=== PATIENT | male | born 1970 | race African-American/Black ===

== ENCOUNTER 2016-07-13 21:39 | Emergency (ER) | payer MEDICARE, MEDICAID ==
[~2016-07-13] VITALS: Ht 175.3 cm; Wt 55.0 kg
[~2016-07-13 21:39] MED LIST: CLON-481 PO; FOLI1TAB4 PO; HYDR-3533 PO; HYDR500C PO; MULTTAB4 PO; PERC10TA27 PO; PREV30CA11 PO; VENTAER INH
[2016-07-13 21:43] VITALS: BP 123/67; PULSE 80; RESP 18; TEMP 98.7; O2SAT 100
[2016-07-13 21:47] VITALS: BP 123/67; PULSE 80; RESP 18; TEMP 98.7; O2SAT 100
[2016-07-13] MEDS ORDERED: SODIUM CHLOR 0.9% 1000 ML INJ 1,000 ML IV ONE (22:04)
[2016-07-13] MEDS ORDERED: ONDANSETRON HCL 4 MG/2 ML VIAL IVP ONE (22:15)
[2016-07-13] MEDS ORDERED: MORPHINE SULFATE 8 MG/ML INJ IV PUSH ONE (22:15)
[2016-07-13] MEDS ORDERED: SODIUM CHLORIDE 0.9% FLUSH 5 ML FLUSH IVF PRN (22:15)
--- NOTE | 2016-07-13 22:27 | RADRPT ---
EXAM DATE/TIME: 07/13/2016 22:16 [facility] COMPARISON: CHEST SINGLE AP, April 14, 2016, 21:19. INDICATIONS : Chest pains (mid sternal) x1 day. MEDICAL HISTORY : Hypertension. Sickle Cell disease. Asthma SURGICAL HISTORY : Chest port ENCOUNTER: Initial ACUITY: 1 day PAIN SCORE: 10/10 LOCATION: Bilateral chest FINDINGS: A single view of the chest demonstrates the lungs to be symmetrically aerated without evidence of mas s, infiltrate or effusion. The cardiomediastinal contours are unremarkable. Osseous structures are intact. CONCLUSION: No acute disease. Toro Sanchez Jr., MD on July 13, 2016 at 22:25 Board Certified Radiologist. This report was verified electronically.
[2016-07-13 22:45] LABS: BICARBONATE 23.5 MEQ/L (21.0-32.0); POTASSIUM 3.4 MEQ/L (3.5-5.1)
[2016-07-13 22:50] VITALS: BP 181/76; PULSE 88; RESP 16; O2SAT 99
[2016-07-13] MEDS ORDERED: POTASSIUM CHLORIDE 20 MEQ CONTROLLED RELEASE TAB PO ONE (23:00)
[2016-07-13 23:01] LABS: AUTOMATED NEUTROPHIL # 7.1 TH/MM3 (1.8-7.7); BASOPHIL # 0.2 TH/MM3 (0-0.2); BASOPHIL % 1.8 % (0.0-2.0); EOSINOPHIL # 0.2 TH/MM3 (0-0.4); EOSINOPHIL % 1.7 % (0.0-4.0); LYMPHOCYTE # 2.7 TH/MM3 (1.0-4.8); MEAN CELL VOLUME 88.4 FL (80.0-100.0); MEAN CORPUSCULAR HEMOGLOBIN 30.5 PG (27.0-34.0); MEAN CORPUSCULAR HGB CONC 34.5 % (32.0-36.0); MONO % 9.8 % (0.0-8.0); NEUT % 62.7 % (16.0-70.0); PLATELET COUNT 353 TH/MM3 (150-450); RED BLOOD COUNT 2.34 MIL/MM3 (4.50-5.90); WHITE BLOOD COUNT 11.4 TH/MM3 (4.0-11.0)
[2016-07-13 23:10] LABS: HEMO FLAGS AUTO DIFF
[2016-07-13 23:13] LABS: HEMATOCRIT 20.7 % (39.0-51.0)
[2016-07-13] MEDS ORDERED: ZOFR4TAB3 SL (23:15)
[2016-07-13] MEDS ORDERED: FOLI1TAB4 PO (23:15)
[2016-07-13] MEDS ORDERED: HYDR-3533 PO (23:15)
[2016-07-13] MEDS ORDERED: MULTTAB4 PO (23:15)
--- NOTE | 2016-07-13 23:16 | PD ---
HPI Chief Complaint: Abdominal Pain Time Seen by Provider: 21:43 Travel History International Travel<30 days: No Contact w/Intl Traveler<30days: No Traveled to known affect area: No History of Present Illness HPI 46-year-old male arrives by EMS due to abdominal pain for about 20 minutes. He states he vomited 3 times. He has a history of sickle cell disease and states that his sickle cell crisis sees are similar to today's presentation. Severity moderate. He said no fever. No dyspnea reported. Denies chest pain. Onset occurred only with walking. Typically Gt'jae develops symptoms after exertion. PFSH Past Medical History Hx Anticoagulant Therapy: No Anemia: Yes Arthritis: Yes Asthma: Yes Autoimmune Disease: No Blood Disorders: Yes (SICKLE CELL) Anxiety: Yes Depression: Yes Heart Rhythm Problems: No Cancer: No Cardiovascular Problems: Yes High Cholesterol: No Chemotherapy: No Chest Pain: Yes Congestive Heart Failure: No COPD: No Cerebrovascular Accident: Yes (PARALYSIS L SIDE ) Cystic Fibrosis: No Diabetes: No Diminished Hearing: No Endocrine: No Gastrointestinal Disorders: No GERD: Yes Genitourinary: No Headaches: No Hepatitis: No Hiatal Hernia: No Hypertension: Yes Immune Disorder: No Implanted Vascular Access Dvce: Yes (LEFT CHEST POWER PORT) Kidney Stones: Yes 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) Psychiatric: Yes (Depression) Reproductive: Yes (ERECTILE DYSFUNCTION) Respiratory: Yes Immunizations Current: Yes Migraines: Yes Pneumonia: Yes Radiation Therapy: No Renal Failure: No Seizures: No Sickle Cell Disease: Yes Sleep Apnea: No Thyroid Disease: No Ulcer: No PNEUMOCCOCAL Vaccine (Year): 2 Past Surgical History Abdominal Surgery: Yes AICD: No Appendectomy: No Arteriovenous Shunt: No Body Medical Devices: Subclavian power port Cardiac Surgery: No Cholecystectomy: Yes Ear Surgery: No Endocrine Surgery: No Genitourinary Surgery: Yes Gynecologic Surgery: No Insulin Pump: No Joint Replacement: No Neurologic Surgery: No Oral Surgery: Yes (ALL TEETH REMOVED) Pacemaker: No Thoracic Surgery: No Other Surgery: Yes (gall bladder, denture, priapism) Social History Alcohol Use: Yes (RARELY) Tobacco Use: No (DENIES) Substance Use: Yes (PT ADMITS TO MARIJUANA OCCASIONALLY) Allergies-Medications (Allergen,Severity, Reaction): Coded Allergies: Ibuprofen (Verified Allergy, Severe, RECTAL BLEEDING, 07/13/16) Methadone (Verified Allergy, Severe, RECTAL BLEEDING., 07/13/16) Tramadol (Verified Allergy, Severe, Hallucinations, 07/13/16) Shrimp (Verified Allergy, Mild, 07/13/16) Reported Meds & Prescriptions Reported Meds & Active Scripts Active Zofran Odt (Ondansetron Odt) 4 Mg Tab 4 Mg SL Q8HR PRN Multi-Vitamins (Multiple Vitamin) 1 Tab Tab 1 Tab PO DAILY 90 Days Lortab (Hydrocodone-Acetaminophen) 5-325 Mg Tab 1 Tab PO Q6H PRN Folate (Folic Acid) 1 Mg Tab 1 Mg PO DAILY 30 Days Reported Percocet (Oxycodone-Acetaminophen) 10-325 mg Tab 1 Tab PO Q4H PRN Prevacid (Lansoprazole) 30 Mg Capdr 30 Mg PO DAILY Catapres (Clonidine) 0.3 Mg Tab 0.3 Mg PO BID Hydrea (Hydroxyurea) 500 Mg Cap 500 Mg PO TID Ventolin Hfa 18 GM Inh (Albuterol Sulfate) 90 Mcg/Act Aer 2 Puff INH Q4H PRN Review of Systems Except as stated in HPI: all other systems reviewed are Neg Physical Exam Narrative GENERAL: Pleasant 46-year-old male no acute distress SKIN: Warm and dry. HEAD: Atraumatic. Normocephalic. EYES: Pupils equal and round. No scleral icterus. No injection or drainage. ENT: No nasal bleeding or discharge. Mucous membranes pink and moist. NECK: Trachea midline. No JVD. CARDIOVASCULAR: Regular rate and rhythm. No murmur appreciated. RESPIRATORY: No accessory muscle use. Clear to auscultation. Breath sounds equal bilaterally. L anterior chest wall hemoport. GASTROINTESTINAL: Abdomen soft, non-tender, nondistended. Hepatic and splenic margins not palpable. MUSCULOSKELETAL: No obvious deformities. No clubbing. No cyanosis. No edema. NEUROLOGICAL: Awake and alert. No obvious cranial nerve deficits. Motor grossly within normal limits. Normal speech. PSYCHIATRIC: Appropriate mood and affect; insight and judgment normal. Data Data Last Documented VS Vital Signs Date Time Temp Pulse Resp B/P Pulse Ox O2 Delivery O2 Flow Rate FiO2 07/13/16 22:50 88 16 181/76 99 Room Air 07/13/16 21:47 98.7 Orders Complete Blood Count With Diff (07/13/16 22:04) Chest, Single Ap (07/13/16 22:04) Ecg Monitoring (07/13/16 22:04) Iv Access Insert/Monitor (07/13/16 22:04) Oximetry (07/13/16 22:04) Oxygen Administration (07/13/16 22:04) Ondansetron Inj (Zofran Inj) (07/13/16 22:15) Sodium Chloride 0.9% Flush (Ns Flush) (07/13/16 22:15) Sodium Chlor 0.9% 1000 Ml Inj (Ns 1000 M (07/13/16 22:04) Morphine Inj (Morphine Inj) (07/13/16 22:15) Basic Metabolic Panel (Bmp) (07/13/16 22:04) Potassium Chloride (Kcl) (07/13/16 23:00) Labs Laboratory Tests Test 07/13/16 22:10 White Blood Count 11.4 TH/MM3 Red Blood Count 2.34 MIL/MM3 Hemoglobin 7.1 GM/DL Hematocrit 20.7 % Mean Corpuscular Volume 88.4 FL Mean Corpuscular Hemoglobin 30.5 PG Mean Corpuscular Hemoglobin 34.5 % Concent Red Cell Distribution Width 18.0 % Platelet Count 353 TH/MM3 Mean Platelet Volume 9.1 FL Neutrophils (%) (Auto) 62.7 % Lymphocytes (%) (Auto) 24.0 % Monocytes (%) (Auto) 9.8 % Eosinophils (%) (Auto) 1.7 % Basophils (%) (Auto) 1.8 % Neutrophils # (Auto) 7.1 TH/MM3 Lymphocytes # (Auto) 2.7 TH/MM3 Monocytes # (Auto) 1.1 TH/MM3 Eosinophils # (Auto) 0.2 TH/MM3 Basophils # (Auto) 0.2 TH/MM3 CBC Comment AUTO DIFF Sodium Level 141 MEQ/L Potassium Level 3.4 MEQ/L Chloride Level 108 MEQ/L Carbon Dioxide Level 23.5 MEQ/L Anion Gap 10 MEQ/L Blood Urea Nitrogen 10 MG/DL Creatinine 0.95 MG/DL Estimat Glomerular Filtration 104 ML/MIN Rate Random Glucose 69 MG/DL Calcium Level 8.6 MG/DL MDM Medical Decision Making Medical Screen Exam Complete: Yes Emergency Medical Condition: Yes Medical Record Reviewed: Yes Differential Diagnosis Avascular necrosis, septic arthritis, anemia, arthritis, bone infarct Narrative Course CBC & BMP Diagram 1/1/17 22:10 Gt is ready for discharge. He feels much better. 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 K+ replenished. Diagnosis Primary Impression: Sickle cell pain crisis Additional Impression: Hypokalemia Referrals: Aydin Rae MD 2 days Additional Instructions: You have a choice when it comes to health care, and we are glad that you chose [facility]. Hopefully, we have met your expectations on today's visit. You are welcome to return to [facility] at any time, as we are committed to meeting the health care needs of our community. Med/Other Pt SpecificInfo: Prescription(s) given Scripts Ondansetron Odt (Zofran Odt)4 Mg Tab4 Mg SL Q8HR PRN (Nausea/Vomiting) #14 TAB Ref 0 Prov:Ezequiel Lemus MD 07/13/16 Multiple Vitamin (Multi-Vitamins)1 Tab Tab1 Tab PO DAILY 90 Days Prov:Ezequiel Lemus MD 07/13/16 Hydrocodone-Acetaminophen (Lortab)5-325 Mg Tab1 Tab PO Q6H PRN (PAIN) #30 TAB Ref 0 Prov:Ezequiel Lemus MD 07/13/16 Folic Acid (Folate)1 Mg Tab1 Mg PO DAILY 30 Days Ref 0 Prov:Ezequiel Lemus MD 07/13/16 Disposition: 01 DISCHARGE HOME Condition: Stable Ezequiel Lemus MD Jul 13, 2016 23:16
[2016-07-14 00:28] LABS: ACANTHOCYTES OCC (NORMAL); HOWELL-JOLLY BODIES PRESENT (NONE SEEN); SCAN/DIFF AUTO DIFF CONFIRMED
[2016-07-14] MEDS ORDERED: SODIUM CHLORIDE 0.9% FLUSH 5 ML FLUSH IVF PRN (00:30)
[2016-07-14 00:38] VITALS: BP 120/66
== END 2016-07-14 00:37 | disposition home or self-care (01) ==
LOC: NEPC 21:39
DX: D57.00 Hb-SS disease with crisis, unspecified (principal); E87.6 Hypokalemia; I10 Essential (primary) hypertension
CPT/HCPCS: 71010; 80048; 85025; 96361; 96374; 96375; 99284; J1642; J2270; J2405; J7030

== ENCOUNTER 2016-07-16 02:30 | Inpatient (IN) | payer OTHER, MEDICARE ==
[~2016-07-16] VITALS: Ht 175.3 cm; Wt 57.9 kg
[~2016-07-16 02:30] MED LIST changes: +ZOFR4TAB3 SL
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
[2016-07-16 03:32] LABS: AMPHETAMINE, URINE NEG (NEG); BARBITURATES, URINE NEG (NEG); COCAINE, URINE POS (NEG)
[2016-07-16 03:34] VITALS: BP 110/59; PULSE 53; RESP 18; TEMP 98; O2SAT 93
[2016-07-16] MEDS ORDERED: HYDROmorphone HCL PF 1 MG/ML VIAL IV PUSH ONE (04:15)
[2016-07-16] MEDS ORDERED: ONDANSETRON HCL 4 MG/2 ML VIAL IV PUSH ONE (04:45)
[2016-07-16 06:20] VITALS: BP 108/58; PULSE 55; RESP 18; O2SAT 96
[2016-07-16] MEDS ORDERED: SODIUM CHLORIDE 0.9% FLUSH 5 ML FLUSH IVF PRN (15:15)
[2016-07-16] MEDS ORDERED: hydrOXYzine HCL 50 MG TAB PO PRN (16:00)
[2016-07-16] MEDS ORDERED: MAGNESIUM HYDROXIDE SUSP 30 ML CUP PO PRN (16:00)
[2016-07-16] MEDS ORDERED: ALUMINUM/MAGNESIUM/SIMETH 30 ML CUP PO PRN (16:00)
[2016-07-16] MEDS ORDERED: BENZTROPINE MESYLATE 2 MG/2 ML VIAL IM PRN (16:00)
[2016-07-16] MEDS ORDERED: LORazepam 1 MG TAB PO PRN (16:00)
[2016-07-16] MEDS ORDERED: BENZTROPINE MESYLATE 1 MG TAB PO PRN (16:00)
[2016-07-16] MEDS ORDERED: LORazepam 2 MG TAB PO PRN (16:00)
[2016-07-16] MEDS ORDERED: LORazepam 2 MG/ML VIAL IM PRN ×4 (16:00)
[2016-07-16] MEDS ORDERED: FLUMAZENIL 1 MG/10 ML VIAL IV PUSH PRN (16:00)
[2016-07-16] MEDS ORDERED: ALBUTEROL SULFATE 90 MCG/ACT HFA 8 GM INHALER INH PRN (16:00)
[2016-07-16] MEDS ORDERED: cloNIDine HCL 0.1 MG TAB PO PRN (16:00)
--- NOTE | 2016-07-16 16:11 | HHI.HP ---
Provisional Diagnosis Admission Date 07/16/2016 [place] I. 1. Major depressive disorder, recurrent, moderate 2. Polysubstance dependence [place] II. Deferred [place] V. GAF is 35 presently Certification of Person's Competence To Provide Express and Informed Consent I have personally examined Katia Henderson Jr , a person being served at [facility] on, Jul 16, 2016 16:00. Express and informed consent means consent voluntarily given in writing, by a competent person, after sufficient explanation and disclosure of the subject matter involved to enable the person to make a knowing and willful decision without any element of force, fraud, deceit, duress, or other form of constraint or coercion. This person is 18 years of age or older, is not now known to be incompetent to consent to treatment with a guardian advocate, and does not have a health care surrogate or proxy currently making medical treatment decisions. I have found this person to be one of the following: [x] Competent to provide express and informed consent, as defined above, for voluntary admission to this facility and is competent to provide express and informed consent for treatment. He/she has the consistent capacity to make well reasoned, willful, and knowing decisions concerning his or her medical or mental health treatment. The person fully and consistently understands the purpose of the admission for examination/placement and is fully capable of personally exercising all rights assured under [place] Incompetent to provide express and informed consent to voluntary admission, and this is incompetent to provide express and informed consent to treatment. The person must be transferred to involuntary status and a petition for a guardian advocate filed with the Circuit Court. [] Refusing to provide express and informed consent to voluntary admission but is competent to provide express and informed consent for treatment. The person must be discharged or transferred to involuntary status. Form shall be completed within 24 hours of a person's arrival at the receiving facility and filed in the clinical record of each person: 1. Admitted on a voluntary basis 2. Permitted to provide express and informed consent to his/her own treatment 3. Allowed to transfer from involuntary to voluntary status 4. Prior to permitting a person to consent to his or her own treatment after having been previously found incompetent to consent to treatment. History of Present Illness Capacity: Has Capacity HPI Mr. Henderson is a 46-year-old male with a reported history of depression and substance use issues who presents under a Brewer act from [place] [employer] alleging that the patient said that he was having family issues and called 911 saying that he was going to kill himself with a knife. Reviewing the electronic medical record, I note that I saw the patient in consultation back in February of last year and the patient was admitted most recently here under Dr. Durant in July 2015. Patient seen and examined. Case discussed with nurse in the [facility]. On my examination today, the patient is clinically sober. He says that he has been feeling increasingly depressed over weeks with associated sleep and appetite disturbance. He endorses hopeless and worthless feelings. He endorses suicidal ideations, although he notes that these are more acute when he is intoxicated. No specific plan or intent at this time. He can generate no reason to live. He denies any current AVH but says that he experiences hallucinations "now and then." He cannot describe these in any detail. No delusions. No manic or hypomanic symptoms noted. The remainder of the psychiatric ROS is negative. Past psychiatric history: Includes a history of depression and substance use. He is not presently under the care of a psychiatrist. His most recent admission was under Dr. Durant as I said and he reports that he has had multiple prior psychiatric admissions. He does deny a history of suicide attempts. Patient reports a previous good response to Elavil. Review of Systems ROS Limitations: Poor Historian Other Patient is hungry. No reported headache, vision or hearing changes, chest pain , shortness of breath, bowel or bladder issues. No other somatic complaints. Past Psych History Psychological trauma history No reported trauma history to me. Violence risk - others (6 mos) Lower imminent risk. Violence risk - self (6 mos) Concern for elevated risk. Substance Abuse History Drugs/Alcohol past 12 months Patient admits to ongoing use of powder cocaine. He also smokes cannabis frequently if not daily. He says that he has been drinking about a 4 pack of beer daily along with occasional liquor. He denies a history of blackouts. He denies a history of DTs or seizures. No reported withdrawal symptoms at this time. Past Family Social History Coded Allergies: Ibuprofen (Verified Allergy, Severe, RECTAL BLEEDING, 07/13/16) Methadone (Verified Allergy, Severe, RECTAL BLEEDING., 07/13/16) Tramadol (Verified Allergy, Severe, Hallucinations, 07/13/16) Shrimp (Verified Allergy, Mild, 07/13/16) Past Medical History Includes a history of sickle cell anemia, hypertension, asthma per patient. Active Scripts Ondansetron Odt (Zofran Odt)4 Mg Tab4 Mg SL Q8HR PRN (Nausea/Vomiting) #14 TAB Ref 0 Prov:Ezequiel Lemus MD 07/13/16 Multiple Vitamin (Multi-Vitamins)1 Tab Tab1 Tab PO DAILY 90 Days Prov:Ezequiel Lemus MD 07/13/16 Reported Medications Lansoprazole (Prevacid)30 Mg Capdr30 Mg PO DAILY Ref 0 05/19/16 Clonidine (Catapres)0.3 Mg Tab0.3 Mg PO BID #60 TAB Ref 0 05/19/16 Hydroxyurea (Hydrea)500 Mg Uth033 Mg PO TID Ref 0 05/19/16 Albuterol 18 GM Inh (Ventolin Hfa 18 GM Inh)90 Mcg/Act Aer2 Puff INH Q4H PRN ( SHORTNESS OF BREATH) #1 INHALER Ref 0 05/19/16 Discontinued Reported Medications Oxycodone-Acetaminophen (Percocet)10-325 mg Tab1 Tab PO Q4H PRN (PAIN) Ref 0 05/19/16 Multiple Vitamin (Multi-Vitamins)1 Tab Tab1 Tab PO DAILY 05/19/16 Hydrocodone-Acetaminophen (Lortab)5-325 Mg Tab1 Tab PO Q6H PRN (PAIN) Ref 0 05/19/16 Folic Acid (Folate)1 Mg Tab1 Mg PO DAILY Ref 0 05/19/16 Discontinued Scripts Hydrocodone-Acetaminophen (Lortab)5-325 Mg Tab1 Tab PO Q6H PRN (PAIN) #30 TAB Ref 0 Prov:Ezequiel Lemus MD 07/13/16 Folic Acid (Folate)1 Mg Tab1 Mg PO DAILY 30 Days Ref 0 Prov:Ezequiel Lemus MD 07/13/16 Current Medications Medications (Trade) Dose Ordered Sig/John Route Start Time Stop Time Status Last Admin (Heparin Central Flush) 500 units UNSCH IVF 07/16/16 15:15 07/16/16 15:22 (NS Flush) 5 ml UNSCH PRN IVF 07/16/16 15:15 (Benadryl) 50 mg HS PRN PO 07/16/16 16:00 UNV (Tylenol) 650 mg Q4H PRN PO 07/16/16 16:00 UNV (Milk Of Magnesia Liq) 30 ml DAILY PRN PO 07/16/16 16:00 UNV (Mag-Al Plus Susp Liq) 30 ml Q6H PRN PO 07/16/16 16:00 UNV (Habitrol 21 Mg Patch.24 Hr) 1 patch DAILY T-DERMAL 07/17/16 09:00 UNV (Atarax) 50 mg Q6H PRN PO 07/16/16 16:00 UNV (Cogentin) 1 mg Q12H PRN PO 07/16/16 16:00 UNV (Cogentin Inj) 1 mg Q12H PRN IM 07/16/16 16:00 UNV (Romazicon Inj) 0.2 mg Q1M PRN IV PUSH 07/16/16 16:00 07/16/16 16:05 UNV (Ativan) 1 mg Q4H PRN PO 07/16/16 16:00 UNV (Ativan Inj) 1 mg Q4H PRN IM 07/16/16 16:00 UNV (Ativan) 2 mg Q2H PRN PO 07/16/16 16:00 UNV (Ativan Inj) 2 mg Q2H PRN IM 07/16/16 16:00 UNV (Ativan Inj) 2 mg Q1H PRN IM 07/16/16 16:00 UNV (Ativan Inj) 2 mg Q15M PRN IM 07/16/16 16:00 UNV Miscellaneous Information 1 DAILY T-DERMAL 07/17/16 09:00 UNV (Vitamin B1) 100 mg DAILY PO 07/17/16 09:00 UNV (Folate) 1 mg DAILY PO 07/17/16 09:00 UNV (Elavil) 25 mg HS PO 07/16/16 21:00 UNV (Proair Hfa Inh) 2 puff Q4H PRN INH 07/16/16 16:00 UNV (Catapres) 0.3 mg BID PO 07/16/16 21:00 UNV Non-Formulary Medication 30 mg DAILY PO 07/17/16 09:00 UNV Family History Patient reports that his daughter struggles with substance use issues. He denies a family history of serious mental illness. He denies a family history of suicide. Social History Patient reports that he is now homeless. He has 3 living children and 2 children. He is no longer in a partnered relationship. He is high school educated. He is not working. He denies any legal history. Denies any history. He denies any access to guns or firearms. Patient's Strengths (min. 2) Maintaining basic hygiene. Verbally fluent. Physical Exam A physical examination was completed in the emergency room by the ER staff and the patient was medically cleared. On my examination today, I find a thin but fairly well-nourished and well-developed male in no acute distress. No abnormal motor movements noted. No signs of withdrawal noted. Labs and vital signs reviewed. Vital Signs Vital Signs Date Time Temp Pulse Resp B/P Pulse Ox O2 Delivery O2 Flow Rate FiO2 07/16/16 06:20 55 18 108/58 96 Room Air 07/16/16 03:34 98.0 Lab Results Item Value Date Time White Blood Count 11.4 TH/MM3 H 07/13/16 2210 Hemoglobin 7.1 GM/DL L 07/13/16 2210 Platelet Count 353 TH/MM3 07/13/16 2210 Sodium Level 141 MEQ/L 07/13/16 2210 Potassium Level 3.4 MEQ/L L 07/13/16 2210 Chloride Level 108 MEQ/L H 07/13/16 2210 Carbon Dioxide Level 23.5 MEQ/L 07/13/16 2210 Blood Urea Nitrogen 10 MG/DL 07/13/16 2210 Creatinine 0.95 MG/DL 07/13/16 2210 Aspartate Amino Transf (AST/SGOT) 16 U/L 05/19/16 0725 Alkaline Phosphatase 84 U/L 05/19/16 0725 Alanine Aminotransferase (ALT/SGPT) 17 U/L 05/19/16 0725 Urine Opiates Screen NEG 07/16/16 0255 Urine Barbiturates Screen NEG 07/16/16 0255 Urine Amphetamines Screen NEG 07/16/16 0255 Urine Benzodiazepines Screen NEG 07/16/16 0255 Urine Cocaine Screen POS H 07/16/16 0255 Urine Cannabinoids Screen POS H 07/16/16 0255 Ethyl Alcohol Level 28 MG/DL H 07/16/16 0315 Mental Status Examination Patient is casually dressed. He is disheveled but maintaining basic hygiene. He is awake and alert and oriented 3. No abnormal motor movements noted. Besides a withdrawal noted. Speech is within normal limits for rate, tone and volume. Language and fund of knowledge seem adequate and appropriate for age. Mood is depressed and affect is restricted. Thought process linear. No loosening of associations. No evident delusions. Denies current AVH. Endorses ongoing suicidal ideation without specific plan at this time. No reported urge to hurt himself on the inpatient psychiatric unit. No homicidal ideation. Insight and judgment are fair. Assessment & Plan Problem List: (1) Major depressive disorder ICD Code: F32.9 (2) Polysubstance dependence ICD Code: F19.20 Assessment & Plan This is a 46-year-old male with psychiatric history as detailed above who presents under a Brewer act after threatening to cut himself with a knife. On my examination today, patient reports ongoing depressive symptoms and 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 He also has comorbid substance use issues which are risk factor for self-harm. Patient requires psychiatric admission at this time for safety, observation and stabilization. --Admit inpatient --Voluntary status --Check a CBC, CMP, lipid panel, hemoglobin A1c in the morning. --Consult to the hospitalist to assist with management of patient's medical issues. I will continue patient's prior to admission medical medications except that I will hold his clonidine and replace this with clonidine PRN as patient is presently hypotensive. --PT consult --Start Elavil 25 mg at bedtime for management of patient's depressive symptoms --CIWA with Ativan as needed for withdrawal. Thiamine and folate. Seizure and fall precautions. --Atarax as needed for anxiety. Cogentin as needed for EPS. Benadryl as needed for sleep. --Vitals every shift --Counselor to see --Disposition planning --Estimated length of stay: 5-7 days Discharge Planning Pending psychiatric stabilization Request HC Surrog/Guard Advoc?: No Problem Qualifiers (1) Major depressive disorder: Qualified Code: F33.1 - Moderate episode of recurrent major depressive disorder Murali Sims MD Jul 16, 2016 16:11
[2016-07-16 16:31] VITALS: BP 105/53; TEMP 99.2; O2SAT 98
[2016-07-16] MEDS: HYDROXYUREA 500 MG CAP PO SCH (18:30)
[2016-07-16 19:35] VITALS: BP 127/82; PULSE 55; RESP 18; O2SAT 98
[2016-07-16] MEDS ORDERED: cloNIDine HCL 0.3 MG TAB PO SCH (21:00)
[2016-07-16] MEDS: ACETAMINOPHEN 325 MG TAB PO PRN (21:34)
[2016-07-16] MEDS: AMITRIPTYLINE HCL 25 MG TAB PO SCH (21:34)
[2016-07-16] MEDS: diphenhydrAMINE HCL 50 MG CAP PO PRN (21:43)
[2016-07-17 05:44] VITALS: BP 117/64; PULSE 50; RESP 16; TEMP 98.7; O2SAT 100
[2016-07-17 08:19] LABS: AUTOMATED NEUTROPHIL # 10.1 TH/MM3 (1.8-7.7); BASOPHIL # 0.1 TH/MM3 (0-0.2); BASOPHIL % 0.7 % (0.0-2.0); EOSINOPHIL # 0.3 TH/MM3 (0-0.4); EOSINOPHIL % 2.1 % (0.0-4.0); HEMATOCRIT 23.8 % (39.0-51.0); LYMPH % 13.9 % (9.0-44.0); LYMPHOCYTE # 1.8 TH/MM3 (1.0-4.8); MEAN CELL VOLUME 91.7 FL (80.0-100.0); MEAN CORPUSCULAR HEMOGLOBIN 30.9 PG (27.0-34.0); MEAN CORPUSCULAR HGB CONC 33.7 % (32.0-36.0); NEUT % 77.3 % (16.0-70.0); PLATELET COUNT 358 TH/MM3 (150-450); RED CELL DISTRIBUTION WIDTH 19.7 % (11.6-17.2); WHITE BLOOD COUNT 13.1 TH/MM3 (4.0-11.0)
[2016-07-17 08:21] LABS: ALKALINE PHOSPHATASE 92 U/L (45-117); HDL CHOLESTEROL 75.5 MG/DL (40.0-60.0); TOTAL BILIRUBIN ADULT 3.6 MG/DL (0.2-1.0)
[2016-07-17 08:28] LABS: HEMO FLAGS AUTO DIFF
[2016-07-17 08:29] LABS: ALT (GPT) 23 U/L (12-78); ANION GAP 8 MEQ/L (5-15); AST (GOT) 30 U/L (15-37); BICARBONATE 23.8 MEQ/L (21.0-32.0); CHLORIDE 108 MEQ/L (98-107); GLOMERULAR FILTRATION RATE 129 ML/MIN (>89); LDL CHOLESTEROL 66 MG/DL (0-99); POTASSIUM 3.6 MEQ/L (3.5-5.1); SODIUM (NA) 140 MEQ/L (136-145)
[2016-07-17 08:30] LABS: BLOOD UREA NITROGEN 6 MG/DL (7-18)
[2016-07-17] MEDS: FOLIC ACID 1 MG TAB PO SCH (08:58)
[2016-07-17] MEDS: THIAMINE HCL 100 MG TAB PO SCH (08:58)
[2016-07-17] MEDS: MULTIVITAMIN TAB PO SCH (08:58)
[2016-07-17] MEDS: PANTOPRAZOLE SOD 40 MG DELAYED RELEASE TAB PO SCH (08:58)
[2016-07-17] MEDS: NICOTINE 21 MG/24 HR PATCH T-DERMAL SCH (08:59)
[2016-07-17] MEDS ORDERED: PNEUMOCOCCAL POLYVALENT INJ 25 MCG/0.5 ML SYR IM ONE (09:00)
[2016-07-17] MEDS: REMOVE OLD PATCH T-DERMAL SCH (09:00)
[2016-07-17] MEDS ORDERED: INFLUENZA VIRUS VACCINE (QUADRIVALENT) 0.5 ML SYR IM ONE (09:00)
[2016-07-17 09:12] LABS: BASOPHILS 1 % (0-2); CORRECTED NUCLEATED RBC 2 /100 WBC (0-0); EOSINOPHILS 6 % (0-4); NEUTROPHIL # MANUAL DIFF 9.7 TH/MM3 (1.8-7.7); POLYS (SEG NEUTROPHILS) 74 % (16-70); WBC DIFF SAMPLE 100
[2016-07-17 09:13] LABS: PLATELET ESTIMATE SMEAR NORMAL (NORMAL); SCAN/DIFF FINAL DIFF MANUAL; SICKLE CELLS 1+ (NORMAL)
[2016-07-17 09:14] LABS: ACANTHOCYTES OCC (NORMAL); HOWELL-JOLLY BODIES PRESENT (NONE SEEN); PLATELET MORPHOLOGY ENLARGED (NORMAL); TEARDROP RBCS 1+ (NORMAL)
[2016-07-17] MEDS: HYDROXYUREA 500 MG CAP PO SCH ×3 (09:48→17:17)
--- NOTE | 2016-07-17 11:32 | HHI.PYPN ---
Subjective Remarks Patient was seen and discussed with the medical staff services coordinator. Patient claimed that he has been feeling depressed. And also admitted to hearing voices telling him to "" kill''but he is not trying to do anything to hurt himself or anyone else. Patient claimed that he is also complaining of some pain in his back and his abdomen and migraine headache. He also has a history of sickle cell anemia and crisis. Patient admitted to abusing pot prior to coming to the hospital. And having trouble sleeping. No behavior or management problem reported patient is cooperative. We will adjust the medication. Continue with the same treatment Review of Systems Gastrointestinal: COMPLAINS OF: Abdominal pain, Anorexia Musculoskeletal: COMPLAINS OF: Joint pain, Back pain Neurologic: COMPLAINS OF: Headache Psychiatric: COMPLAINS OF: Mood changes, Depression, Hallucinations Objective Alert: Yes [place]: Person, Place, Situation Mood: Depressed Affect: Restricted, Flat Memory Intact: Recent (mildly impaired) Hallucinations: Auditory (admitted to auditory hallucination ) Delusions: Yes Delusion Type: Paranoid Suicidal: Ideation (patient denied any suicidal ideation intentions or plan in the hospital) Homicidal: Ideation (denies) Insight/Judgement Limited Remarks Attention and concentration poor. Gait normal. Language normal. Fund of knowledge average Labs Test 07/17/16 07:12 White Blood Count 13.1 TH/MM3 Red Blood Count 2.60 MIL/MM3 Hemoglobin 8.0 GM/DL Hematocrit 23.8 % Mean Corpuscular Volume 91.7 FL Mean Corpuscular Hemoglobin 30.9 PG Mean Corpuscular Hemoglobin 33.7 % Concent Red Cell Distribution Width 19.7 % Platelet Count 358 TH/MM3 Mean Platelet Volume 8.9 FL Neutrophils (%) (Auto) 77.3 % Lymphocytes (%) (Auto) 13.9 % Monocytes (%) (Auto) 6.0 % Eosinophils (%) (Auto) 2.1 % Basophils (%) (Auto) 0.7 % Neutrophils # (Auto) 10.1 TH/MM3 Lymphocytes # (Auto) 1.8 TH/MM3 Monocytes # (Auto) 0.8 TH/MM3 Eosinophils # (Auto) 0.3 TH/MM3 Basophils # (Auto) 0.1 TH/MM3 CBC Comment AUTO DIFF Differential Total Cells 100 Counted Neutrophils % (Manual) 74 % Lymphocytes % 15 % Monocytes % 4 % Eosinophils % 6 % Basophils % 1 % Neutrophils # (Manual) 9.7 TH/MM3 Nucleated Red Blood Cells 2 /100 WBC Differential Comment FINAL DIFF MANUAL Platelet Estimate NORMAL Platelet Morphology Comment ENLARGED Sickle Cells 1+ Tear Drop Cells 1+ Bean-[place] Bodies PRESENT Acanthocytes OCC Red Cell Morphology Comment Sodium Level 140 MEQ/L Potassium Level 3.6 MEQ/L Chloride Level 108 MEQ/L Carbon Dioxide Level 23.8 MEQ/L Anion Gap 8 MEQ/L Blood Urea Nitrogen 6 MG/DL Creatinine 0.79 MG/DL Estimat Glomerular Filtration 129 ML/MIN Rate Random Glucose 68 MG/DL Calcium Level 8.8 MG/DL Total Bilirubin 3.6 MG/DL Aspartate Amino Transf 30 U/L (AST/SGOT) Alanine Aminotransferase 23 U/L (ALT/SGPT) Alkaline Phosphatase 92 U/L Total Protein 7.7 GM/DL Albumin 4.1 GM/DL Triglycerides Level 79 MG/DL Cholesterol Level 157 MG/DL LDL Cholesterol 66 MG/DL HDL Cholesterol 75.5 MG/DL Cholesterol/HDL Ratio 2.07 RATIO Thyroid Stimulating Hormone 0.236 uIU/ML 3rd Gen Vitals/IOs Vital Signs Date Time Temp Pulse Resp B/P Pulse Ox O2 Delivery O2 Flow Rate FiO2 07/17/16 05:44 98.7 50 16 117/64 100 07/16/16 16:31 Room Air Intake and Output 07/16/16 07/16/16 07/17/16 08:00 16:00 00:00 Output Total 400 ml Balance -400 ml Assessment & Plan Problem List: (1) Major depressive disorder ICD Code: F32.9 (2) Polysubstance dependence ICD Code: F19.20 Assessment & Plan Estimated LOS: days Justification for Cont. Inpt. Monitoring and titrating of the medication and risk for decompensation Request HC Surrog/Guard Advoc?: No Problem Qualifiers (1) Major depressive disorder: Qualified Code: F33.1 - Moderate episode of recurrent major depressive disorder Jesus Manzo MD Jul 17, 2016 11:32
[2016-07-17] MEDS: ACETAMINOPHEN 325 MG TAB PO PRN (11:35)
[2016-07-17] MEDS: QUEtiapine FUMARATE 100 MG TAB PO SCH ×2 (12:16→20:27)
--- NOTE | 2016-07-17 18:06 | PD.CONS ---
[facility] By [facility]ry team Reason for Consult Medical management Primary Care Physician No Primary Care Physician Diagnoses: History of Present Illness Patient is a 46-year-old AF male with primary medical history of sickle cell anemia, CVA with left-sided weakness who came into the hospital under Brewer act initiated the [employer]. According to ED notes, patient spoke with officers with his intentions to harm himself with a knife reporting that he became depressed and suicidal because his and stepdaughter treat him poorly. Patient also admitted to using cocaine, marijuana and beer during day of admission. He is now admitted to inpatient psychiatry unit for further evaluation. Consulted for medical management. Patient seen today. Appears to be lethargic but responds to questions and follows commands. States he is doing okay. Denies pain and discomfort. Denies SOB/ dyspnea. Denies chestpain, palpitations, headaches, dizziness. Denies fevers, chills, n/v/d. Review of Systems Other Negative except for what is noted on history of present illness. Past Family Social History Allergies: Coded Allergies: Ibuprofen (Verified Allergy, Severe, RECTAL BLEEDING, 07/13/16) Methadone (Verified Allergy, Severe, RECTAL BLEEDING., 07/13/16) Tramadol (Verified Allergy, Severe, Hallucinations, 07/13/16) Shrimp (Verified Allergy, Mild, 07/13/16) Past Medical History Sickle cell anemia Arthritis Asthma Anxiety Depression CVA with left-sided weakness/ paralysis GERD Erectile dysfunction Past Surgical History Abdominal surgery Left Subclavian power port Cholecystectomy Genitourinary surgery Reported Medications Zofran ODT 4 mg every 8 hours when necessary Prevacid (Lansoprazole) 30 Mg Capdr 30 Mg PO DAILY Catapres (Clonidine) 0.3 Mg Tab 0.3 Mg PO BID Hydrea (Hydroxyurea) 500 Mg Cap 500 Mg PO TID Ventolin Hfa 18 GM Inh (Albuterol Sulfate) 90 Mcg/Act Aer 2 Puff INH Q4H PRN Multivitamin 1 tab by mouth daily Active Ordered Medications Current Medications Medications (Trade) Dose Ordered Sig/John Route Start Time Stop Time Status Last Admin (Heparin Central Flush) 500 units UNSCH IVF 07/16/16 15:15 07/16/16 15:22 (NS Flush) 5 ml UNSCH PRN IVF 07/16/16 15:15 (Benadryl) 50 mg HS PRN PO 07/16/16 21:00 07/16/16 21:43 (Tylenol) 650 mg Q4H PRN PO 07/16/16 16:00 07/17/16 11:35 (Milk Of Magnesia Liq) 30 ml DAILY PRN PO 07/16/16 16:00 (Mag-Al Plus Susp Liq) 30 ml Q6H PRN PO 07/16/16 16:00 (Habitrol 21 Mg Patch.24 Hr) 1 patch DAILY T-DERMAL 07/17/16 09:00 07/17/16 08:59 (Atarax) 50 mg Q6H PRN PO 07/16/16 16:00 (Cogentin) 1 mg Q12H PRN PO 07/16/16 16:00 (Cogentin Inj) 1 mg Q12H PRN IM 07/16/16 16:00 (Ativan) 1 mg Q4H PRN PO 07/16/16 16:00 (Ativan Inj) 1 mg Q4H PRN IM 07/16/16 16:00 (Ativan) 2 mg Q2H PRN PO 07/16/16 16:00 (Ativan Inj) 2 mg Q2H PRN IM 07/16/16 16:00 (Ativan Inj) 2 mg Q1H PRN IM 07/16/16 16:00 (Ativan Inj) 2 mg Q15M PRN IM 07/16/16 16:00 Miscellaneous Information 1 DAILY T-DERMAL 07/17/16 09:00 07/17/16 09:00 (Vitamin B1) 100 mg DAILY PO 07/17/16 09:00 07/17/16 08:58 (Folate) 1 mg DAILY PO 07/17/16 09:00 07/17/16 08:58 (Elavil) 25 mg HS PO 07/16/16 21:00 07/16/16 21:34 (Proair Hfa Inh) 2 puff Q4H PRN INH 07/16/16 16:00 (Hydrea) 500 mg TID PO 07/16/16 18:00 07/17/16 17:17 (Theragran) 1 tab DAILY PO 07/17/16 09:00 07/17/16 08:58 (Zofran Odt) 4 mg Q8HR PRN SL 07/16/16 16:00 (Protonix) 40 mg DAILY PO 07/17/16 09:00 07/17/16 08:58 (Catapres) 0.1 mg Q8HR PRN PO 07/16/16 16:00 (SEROquel) 100 mg BID PO 07/17/16 12:00 07/17/16 12:16 (Desyrel) 100 mg HS PO 07/17/16 21:00 Family History No significant family medical history Social History Smokes 1-2 pack per day Alcohol use daily for packs of beer with occasional liquor Admits to cocaine, marijuana use Physical Exam Vital Signs Vital Signs Date Time Temp Pulse Resp B/P Pulse Ox O2 Delivery O2 Flow Rate FiO2 07/17/16 05:44 98.7 50 16 117/64 100 07/16/16 19:35 55 18 127/82 98 Physical Exam GENERAL: This is a thinly appearing, well-developed patient, in no apparent distress. SKIN: No rashes, ecchymoses or lesions. Cool and dry. HEAD: Atraumatic. Normocephalic. No temporal or scalp tenderness. EYES: Pupils equal round and reactive. No scleral icterus. No injection or drainage. ENT: Nose without bleeding. Airway patent. NECK: Trachea midline. No JVD or lymphadenopathy. CARDIOVASCULAR: Regular rate and rhythm without murmurs, gallops, or rubs. RESPIRATORY: Clear to auscultation. Breath sounds equal bilaterally. No wheezes , rales, or rhonchi. GASTROINTESTINAL: Abdomen soft, non-tender, nondistended. Bowel Sounds active 4. MUSCULOSKELETAL: Extremities without clubbing, cyanosis, or edema. Left-sided weakness NEUROLOGICAL: Drowsy. Awakens to verbal stimuli. Follows commands. Normal speech. Laboratory Laboratory Tests Test 07/17/16 07:12 White Blood Count 13.1 Red Blood Count 2.60 Hemoglobin 8.0 Hematocrit 23.8 Mean Corpuscular Volume 91.7 Mean Corpuscular Hemoglobin 30.9 Mean Corpuscular Hemoglobin 33.7 Concent Red Cell Distribution Width 19.7 Platelet Count 358 Mean Platelet Volume 8.9 Neutrophils (%) (Auto) 77.3 Lymphocytes (%) (Auto) 13.9 Monocytes (%) (Auto) 6.0 Eosinophils (%) (Auto) 2.1 Basophils (%) (Auto) 0.7 Neutrophils # (Auto) 10.1 Lymphocytes # (Auto) 1.8 Monocytes # (Auto) 0.8 Eosinophils # (Auto) 0.3 Basophils # (Auto) 0.1 CBC Comment AUTO DIFF Differential Total Cells 100 Counted Neutrophils % (Manual) 74 Lymphocytes % 15 Monocytes % 4 Eosinophils % 6 Basophils % 1 Neutrophils # (Manual) 9.7 Nucleated Red Blood Cells 2 Differential Comment FINAL DIFF MANUAL Platelet Estimate NORMAL Platelet Morphology Comment ENLARGED Sickle Cells 1+ Tear Drop Cells 1+ Bean-[place] Bodies PRESENT Acanthocytes OCC Red Cell Morphology Comment Sodium Level 140 Potassium Level 3.6 Chloride Level 108 Carbon Dioxide Level 23.8 Anion Gap 8 Blood Urea Nitrogen 6 Creatinine 0.79 Estimat Glomerular Filtration 129 Rate Random Glucose 68 Calcium Level 8.8 Total Bilirubin 3.6 Aspartate Amino Transf 30 (AST/SGOT) Alanine Aminotransferase 23 (ALT/SGPT) Alkaline Phosphatase 92 Total Protein 7.7 Albumin 4.1 Triglycerides Level 79 Cholesterol Level 157 LDL Cholesterol 66 HDL Cholesterol 75.5 Cholesterol/HDL Ratio 2.07 Thyroid Stimulating Hormone 0.236 3rd Gen Result Diagram: 07/17/1671107/17/16711 Assessment and Plan Problem List: (1) Polysubstance dependence ICD Code: F19.20 Status: Acute (2) Major depressive disorder ICD Code: F32.9 Status: Acute (3) Sickle cell pain crisis ICD Code: D57.00 Status: Acute (4) Hypertension ICD Code: I10 Status: Chronic Assessment and Plan Patient is a 46-year-old male who came in to the hospital under Brewer act from booking police officer for 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 He is now admitted to inpatient psychiatric unit for further evaluation. Consulted for medical management. Major depressive disorder, polysubstance abuse, suicidal ideation - management by psychiatry team Alcohol abuse - [facility] protocol in place - Folic acid, multivitamins. Thiamine Tobacco use - nicotine patch Substance abuse - patient was counseled. Discussed cocaine use with prior history of CVA. GERD - continue pantoprazole Sickle cell - continue hydroxyurea - Encourage fluid hydration HTN - patient previously on clonidine 0.3mg twice a day, however BP has been noted to be low, heart rate in the 50s - clonidine 0.1 mg when necessary for now - Monitor BP trend DVT prop - encourage early ambulation Written by Jessie Bryant, acting as scribe for Dr. Betancur on 07/17/16 at 16:15. The documentation accurately reflects the work performed [id number] by me on at 16:15. Code Status Full code Discussed Condition With Patient, RN Problem Qualifiers (1) Major depressive disorder: Qualified Code: F33.1 - Moderate episode of recurrent major depressive disorder Jessie Blackwood Jul 17, 2016 18:05 Haile Betancur DO Jul 17, 2016 23:21
[2016-07-17 19:40] VITALS: BP 116/55; PULSE 60; RESP 16; TEMP 98.4; O2SAT 98
[2016-07-17] MEDS: traZODone HCL 100 MG TAB PO SCH (20:27)
[2016-07-17] MEDS: AMITRIPTYLINE HCL 25 MG TAB PO SCH (20:27)
[2016-07-18 06:09] VITALS: BP 118/58; PULSE 69; RESP 17; TEMP 99.6; O2SAT 97
[2016-07-18] MEDS: REMOVE OLD PATCH T-DERMAL SCH (09:00)
[2016-07-18] MEDS: THIAMINE HCL 100 MG TAB PO SCH (09:25)
[2016-07-18] MEDS: MULTIVITAMIN TAB PO SCH (09:25)
[2016-07-18] MEDS: PANTOPRAZOLE SOD 40 MG DELAYED RELEASE TAB PO SCH (09:25)
[2016-07-18] MEDS: QUEtiapine FUMARATE 100 MG TAB PO SCH ×2 (09:25→20:31)
[2016-07-18] MEDS: FOLIC ACID 1 MG TAB PO SCH (09:25)
[2016-07-18] MEDS: NICOTINE 21 MG/24 HR PATCH T-DERMAL SCH (09:26)
[2016-07-18] MEDS: HYDROXYUREA 500 MG CAP PO SCH ×3 (09:27→17:00)
--- NOTE | 2016-07-18 13:41 | HHI.PYPN ---
Subjective Remarks Patient was seen and discussed with the staff editor. Patient reported that he still remains hungry and is did not get his double portion of the food which was corrected. Patient claimed that the medication seems to be helping him. He has been complaining of some nightmare and dream. He claimed that the voices are fading away but he occasionally still hears some. Denied any suicidal and/or homicidal ideation intentions or plan. No behavior or management problem reported. Compliant in taking medication. Continue with the same treatment Review of Systems Except as stated in HPI: all other systems reviewed are Neg Psychiatric: COMPLAINS OF: Confusion, Mood changes, Depression, Hallucinations , Delusions Objective Alert: Yes [place]: Person, Place, Situation Mood: Depressed Affect: Restricted, Flat Memory Intact: Recent (mildly impaired) Hallucinations: Auditory (admitted to auditory hallucination ) Delusions: Yes Delusion Type: Paranoid Suicidal: Ideation (patient denied any suicidal ideation intentions or plan in the hospital) Homicidal: Ideation (denies) Insight/Judgement Fair to limited Remarks Attention and concentration improving. Gait normal. Language normal. Fund of knowledge average Vitals/IOs Vital Signs Date Time Temp Pulse Resp B/P Pulse Ox O2 Delivery O2 Flow Rate FiO2 07/18/16 06:09 99.6 69 17 118/58 97 07/16/16 16:31 Room Air Assessment & Plan Problem List: (1) Major depressive disorder ICD Code: F32.9 (2) Polysubstance dependence ICD Code: F19.20 Assessment & Plan Estimated LOS: days Justification for Cont. Inpt. Titrating and monitoring of the medication. And risk for decompensation at lower level of care Request HC Surrog/Guard Advoc?: No Problem Qualifiers (1) Major depressive disorder: Qualified Code: F33.1 - Moderate episode of recurrent major depressive disorder Jesus Manzo MD Jul 18, 2016 13:41
[2016-07-18] MEDS: ACETAMINOPHEN 325 MG TAB PO PRN (17:18)
[2016-07-18 18:58] VITALS: BP 106/65; PULSE 49; RESP 17; TEMP 97.4; O2SAT 96
[2016-07-18] MEDS: traZODone HCL 100 MG TAB PO SCH (20:31)
[2016-07-18] MEDS: AMITRIPTYLINE HCL 25 MG TAB PO SCH (20:31)
[2016-07-18] MEDS: NAPROXEN 500 MG TAB PO SCH (21:45)
[2016-07-19 06:15] VITALS: BP 96/52; PULSE 61; RESP 17; TEMP 97.6; O2SAT 98
[2016-07-19 08:12] LABS: MEAN CELL VOLUME 90.9 FL (80.0-100.0); MEAN CORPUSCULAR HEMOGLOBIN 31.5 PG (27.0-34.0); MEAN CORPUSCULAR HGB CONC 34.7 % (32.0-36.0); PLATELET COUNT 292 TH/MM3 (150-450); RED BLOOD COUNT 2.28 MIL/MM3 (4.50-5.90); RED CELL DISTRIBUTION WIDTH 18.1 % (11.6-17.2); WHITE BLOOD COUNT 12.3 TH/MM3 (4.0-11.0)
[2016-07-19 08:23] LABS: REVIEW FLAG FINAL
[2016-07-19 08:25] LABS: HEMATOCRIT 20.8 % (39.0-51.0)
[2016-07-19] MEDS: HYDROXYUREA 500 MG CAP PO SCH ×3 (09:32→17:26)
[2016-07-19] MEDS: PANTOPRAZOLE SOD 20 MG DELAYED RELEASE TAB PO SCH (09:33)
[2016-07-19] MEDS: QUEtiapine FUMARATE 100 MG TAB PO SCH ×2 (09:33→20:30)
[2016-07-19] MEDS: FOLIC ACID 1 MG TAB PO SCH (09:33)
[2016-07-19] MEDS: MULTIVITAMIN TAB PO SCH (09:34)
[2016-07-19] MEDS: THIAMINE HCL 100 MG TAB PO SCH (09:34)
[2016-07-19] MEDS: REMOVE OLD PATCH T-DERMAL SCH (09:36)
[2016-07-19] MEDS: NICOTINE 21 MG/24 HR PATCH T-DERMAL SCH (09:37)
[2016-07-19] MEDS: NAPROXEN 500 MG TAB PO SCH ×2 (09:43→20:30)
[2016-07-19] MEDS: ACETAMINOPHEN 325 MG TAB PO PRN ×2 (13:21→19:50)
--- NOTE | 2016-07-19 16:37 | HHI.PR ---
Subjective Remarks Follow-up visit sickle cell, anemia, poor by mouth intake, increase pain. Patient seen today lying in bed. Complaints of joint pains. 8/10, achy all throughout his body and his chest. Feels weak. States he hasn't been drinking much. According to RN, patient hasn't been drinking water and appears to be more depressed. Critical lab values was called early this morning hematocrit 20.8. Discussed with patient Will repeat labs. Denies SOB/dyspnea. Denies palpitations, headaches, dizziness, nausea, vomiting, diarrhea. Objective Vitals Vital Signs Date Time Temp Pulse Resp B/P Pulse Ox O2 Delivery O2 Flow Rate FiO2 07/19/16 06:15 97.6 61 17 96/52 98 07/18/16 18:58 97.4 49 17 106/65 96 Result Diagram: 07/19/16 0651 07/17/16 0712 Objective Remarks GENERAL: This is a thinly appearing, well-developed patient, in no apparent distress. SKIN: No rashes, ecchymoses or lesions. Cool and dry. HEAD: Atraumatic. Normocephalic. No temporal or scalp tenderness. EYES: Pupils equal round and reactive. No scleral icterus. No injection or drainage. ENT: Nose without bleeding. Airway patent. NECK: Trachea midline. No JVD or lymphadenopathy. CARDIOVASCULAR: Regular rate and rhythm without murmurs, gallops, or rubs. Painful to palpation. RESPIRATORY: Clear to auscultation. Breath sounds equal bilaterally. No wheezes , rales, or rhonchi. GASTROINTESTINAL: Abdomen soft, non-tender, nondistended. Bowel Sounds active 4. MUSCULOSKELETAL: Extremities without clubbing, cyanosis, or edema. Left-sided weakness NEUROLOGICAL: Alert and awake. Follows commands. Normal speech. Urinary Catheter: No Vascular Central Line Catheter: No A/P Problem List: (1) Polysubstance dependence ICD Code: F19.20 Status: Acute (2) Major depressive disorder ICD Code: F32.9 Status: Acute (3) Sickle cell pain crisis ICD Code: D57.00 Status: Acute (4) Hypertension ICD Code: I10 Status: Chronic Assessment and Plan Patient is a 46-year-old male who came in to the hospital under Brewer act from public safety police for 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 He is now admitted to inpatient psychiatric unit for further evaluation. Consulted for medical management. Major depressive disorder, polysubstance abuse, suicidal ideation - management by psychiatry team Alcohol abuse - [facility] protocol in place - Folic acid, multivitamins. Thiamine Tobacco use - nicotine patch Substance abuse - patient was counseled. Discussed cocaine use with prior history of CVA. GERD - continue pantoprazole Sickle cell anemia - continue hydroxyurea - Encourage fluid hydration. Increasing pain now, Naprosyn ordered. - H&H 7.2/20.8. Will repeat labs including reticulocyte count medical haptoglobin, direct bilirubin. If count is less than 7 patient needs to have blood transfusion will transfer to medical psych unit. Patient is not hydrating well. If continues to not be able to take by mouth fluids, will do IV fluids for hydration. Sickle cell crisis - Low h/h . Enc fluid hydration. Pain management Naprosyn. - If continues to not be able to take by mouth fluids, will do IV fluids for hydration. HTN - patient previously on clonidine 0.3mg twice a day, however BP has been noted to be low, heart rate in the 50s - clonidine 0.1 mg when necessary for now - Monitor BP trend DVT prop - encourage early ambulation Discussed with patient, nursing Written by Jessie Bryant, acting as scribe for Dr. Roland on 07/19/16 at 14: 47. Attending Statement The documentation accurately reflects the work performed [id number] by me on at 14:47. Problem Qualifiers (1) Major depressive disorder: Qualified Code: F33.1 - Moderate episode of recurrent major depressive disorder Jessie Blackwood Jul 19, 2016 16:37 Dionicio Christopher MD Jul 20, 2016 23:20
[2016-07-19 18:26] VITALS: BP 126/56; PULSE 80; TEMP 99; O2SAT 97
[2016-07-19 19:00] VITALS: BP 112/56; PULSE 80; RESP 18; TEMP 99; O2SAT 95
[2016-07-19] MEDS: traZODone HCL 100 MG TAB PO SCH (20:30)
[2016-07-19] MEDS: AMITRIPTYLINE HCL 25 MG TAB PO SCH (21:00)
[2016-07-20] VITALS (7 sets, daily range): BP systolic 99–118; BP diastolic 51–57; PULSE 56–70; RESP 17–19; TEMP 97.8–98.5; O2SAT 95–100
[2016-07-20] MEDS: diphenhydrAMINE HCL 50 MG CAP PO PRN ×2 (04:25→21:05)
[2016-07-20] MEDS: THIAMINE HCL 100 MG TAB PO SCH (07:58)
[2016-07-20] MEDS: PANTOPRAZOLE SOD 20 MG DELAYED RELEASE TAB PO SCH (07:58)
[2016-07-20] MEDS: MULTIVITAMIN TAB PO SCH (07:58)
[2016-07-20] MEDS: QUEtiapine FUMARATE 100 MG TAB PO SCH ×2 (07:58→21:01)
[2016-07-20] MEDS: FOLIC ACID 1 MG TAB PO SCH (07:59)
[2016-07-20] MEDS: NAPROXEN 500 MG TAB PO SCH ×2 (07:59→21:01)
[2016-07-20] MEDS: NICOTINE 21 MG/24 HR PATCH T-DERMAL SCH (08:00)
[2016-07-20] MEDS: REMOVE OLD PATCH T-DERMAL SCH (08:00)
[2016-07-20] MEDS: HYDROXYUREA 500 MG CAP PO SCH ×3 (08:02→18:33)
[2016-07-20] MEDS ORDERED: SODIUM CHLOR 0.9% 1000 ML INJ 1,000 ML IV ONE (08:45)
[2016-07-20 10:43] LABS: MEAN CELL VOLUME 90.2 FL (80.0-100.0); MEAN CORPUSCULAR HEMOGLOBIN 31.4 PG (27.0-34.0); MEAN CORPUSCULAR HGB CONC 34.8 % (32.0-36.0); PLATELET COUNT 300 TH/MM3 (150-450); RED BLOOD COUNT 2.11 MIL/MM3 (4.50-5.90); RED CELL DISTRIBUTION WIDTH 17.5 % (11.6-17.2); RETIC % 5.5 % (0.4-3.0)
[2016-07-20 10:56] LABS: ALT (GPT) 51 U/L (12-78); ANION GAP 5 MEQ/L (5-15); AST (GOT) 53 U/L (15-37); BICARBONATE 27.5 MEQ/L (21.0-32.0); BLOOD UREA NITROGEN 8 MG/DL (7-18); CHLORIDE 108 MEQ/L (98-107); GLOMERULAR FILTRATION RATE 148 ML/MIN (>89); POTASSIUM 4.2 MEQ/L (3.5-5.1); SODIUM (NA) 140 MEQ/L (136-145)
[2016-07-20 11:03] LABS: ALKALINE PHOSPHATASE 72 U/L (45-117); FREE T3 1.65 PG/ML (2.18-3.98); TOTAL BILIRUBIN ADULT 2.5 MG/DL (0.2-1.0)
--- NOTE | 2016-07-20 11:08 | HHI.PR ---
Subjective Remarks Follow up visit sickle cell crisis, hemolytic anemia, hypotension. Pt. seen today. He was transferred to med-psych unit today. Pt. H/H dropped yesterday. Poor po intake, and increasing pain. He also has episode of hypotension. He is getting IVF for now and repeat labs ordered. Pt. states pain is now 10/10, all over his body and joints. He used to see Dr. Antonio years ago and has not followed up with anyone. Other than pain and weakness, pt. denies SOB/ dyspnea, n/v/d, headaches, palpitations Objective Vitals Vital Signs Date Time Temp Pulse Resp B/P Pulse Ox O2 Delivery O2 Flow Rate FiO2 07/20/16 07:56 98.5 60 18 99/57 98 07/20/16 06:13 98.3 59 19 109/53 99 07/19/16 19:00 99.0 80 18 112/56 95 07/19/16 18:26 99.0 80 126/56 97 I/O 07/19/16 07/19/16 07/19/16 07/20/16 07/20/16 07/20/16 07:00 15:00 23:00 07:00 15:00 23:00 Intake Total 450 ml 200 ml Balance 450 ml 200 ml Intake Oral 450 ml 200 ml Result Diagram: 07/19/16 0651 07/20/16 0955 Objective Remarks GENERAL: This is a thinly appearing, well-developed patient, in no apparent distress. SKIN: No rashes, ecchymoses or lesions. Cool and dry. HEAD: Atraumatic. Normocephalic. No temporal or scalp tenderness. EYES: Pupils equal round and reactive. Scleral icterus present Bilat. No injection or drainage. ENT: Nose without bleeding. Airway patent. NECK: Trachea midline. No JVD or lymphadenopathy. CARDIOVASCULAR: Regular rate and rhythm without murmurs, gallops, or rubs. Chest painful to palpation. RESPIRATORY: Clear to auscultation. Breath sounds equal bilaterally. No wheezes , rales, or rhonchi. GASTROINTESTINAL: Abdomen soft, tender to palpate, nondistended. Bowel Sounds active 4. MUSCULOSKELETAL: Extremities without clubbing, cyanosis, or edema. Left-sided weakness. Joints tender to palpation. NEUROLOGICAL: Alert and awake. Follows commands. Normal speech. Vascular Central Line Catheter: Yes Reason for Continuation Left SC PORT accessed A/P Problem List: (1) Polysubstance dependence ICD Code: F19.20 Status: Acute (2) Major depressive disorder ICD Code: F32.9 Status: Acute (3) Sickle cell pain crisis ICD Code: D57.00 Status: Acute (4) Hypertension ICD Code: I10 Status: Chronic Assessment and Plan Patient is a 46-year-old male who came in to the hospital under [place] act from [employer] for 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 He is now admitted to inpatient psychiatric unit for further evaluation. Consulted for medical management. Major depressive disorder, polysubstance abuse, suicidal ideation - management by psychiatry team Alcohol abuse - [facility] protocol in place - Folic acid, multivitamins. Thiamine Coccaine use - counselled. If elevated BP no BB use. Tobacco use - nicotine patch Substance abuse - patient was counseled. Discussed cocaine use with prior history of CVA. GERD - continue pantoprazole Sickle cell anemia - continue hydroxyurea - Encourage fluid hydration. Increasing pain now, Naprosyn ordered. - H&H 7.2/20.8. Will repeat labs including reticulocyte count medical haptoglobin, direct bilirubin. If count is less than 7 patient needs to have blood transfusion will transfer to medical psych unit. Patient is not hydrating well. If continues to not be able to take by mouth fluids, will do IV fluids for hydration. Sickle cell crisis - Low h/h 6.6/19 1/02/25. Enc fluid hydration. Pain management - Pain management - lortabs, IV morphine for breakthrough pain - Continue IVF. - Consult Heme - Blood transfusion x 1 unit. - Repeat labs Low TSH - check T3, T4 HTN - patient previously on clonidine 0.3mg twice a day, however BP has been noted to be low, heart rate in the 50s - clonidine 0.1 mg when necessary for now - Monitor BP trend DVT prop - encourage early ambulation Discussed with patient, nursing Written by Jessie Bryant, acting as scribe for Dr. Roland on 07/19/16 at 14: 47. Attending Statement The documentation accurately reflects the work performed [id number] by me on at 14:47. Problem Qualifiers (1) Major depressive disorder: Qualified Code: F33.1 - Moderate episode of recurrent major depressive disorder Jessie Blackwood Jul 20, 2016 11:08 Dionicio Christopher MD Jul 20, 2016 23:29
[2016-07-20 11:09] LABS: HEMO FLAGS AUTO DIFF; REVIEW FLAG FINAL
[2016-07-20] MEDS ORDERED: ACETAMINOPHEN/HYDROcodone 325 MG/5 MG TAB PO PRN (11:15)
[2016-07-20] MEDS ORDERED: diphenhydrAMINE HCL 25 MG CAP PO PRN (11:15)
[2016-07-20] MEDS ORDERED: ACETAMINOPHEN 325 MG TAB PO PRN (11:15)
[2016-07-20] MEDS ORDERED: SODIUM CHLOR 0.9% 250 ML INJ 250 ML IV ONE (11:15)
[2016-07-20 11:31] LABS: BANDS 1 % (0-6); CORRECTED NUCLEATED RBC 1 /100 WBC (0-0); EOSINOPHILS 1 % (0-4); MYELOCYTES 1 % (0-0); NEUTROPHIL # MANUAL DIFF 8.3 TH/MM3 (1.8-7.7); POLYS (SEG NEUTROPHILS) 73 % (16-70); SICKLE CELLS 1+ (NORMAL); WBC DIFF SAMPLE 100
[2016-07-20 11:32] LABS: ACANTHOCYTES 1+ (NORMAL); PLATELET ESTIMATE SMEAR NORMAL (NORMAL); PLATELET MORPHOLOGY NORMAL (NORMAL); SCAN/DIFF FINAL DIFF MANUAL; TARGET CELLS 1+ (NORMAL)
[2016-07-20] MEDS: SODIUM CHLOR 0.9% 1000 ML INJ 1,000 ML IV SCH ×3 (11:58→23:48)
[2016-07-20] MEDS: ACETAMINOPHEN/HYDROcodone 325 MG/10 MG TAB PO PRN ×2 (13:16→18:33)
[2016-07-20] MEDS: DOCUSATE SODIUM 100 MG CAP PO SCH ×2 (13:30→21:01)
[2016-07-20] MEDS: MORPHINE SULFATE 4 MG/ML INJ IV PUSH PRN ×2 (14:13→21:03)
--- NOTE | 2016-07-20 14:25 | MB ---
cc: PADMA VELASCO RUBY ANNE E. M.D. DATE OF CONSULTATION: 07/20/2015. REASON FOR CONSULTATION: Dr. Roland requested consultation for Mr. Henderson regarding sickle-cell disease. REFERRING PHYSICIAN: Dr. Larisa Roland. HISTORY OF PRESENT ILLNESS Mr. Henderson is a 46-year-old man well-known patient with sickle-cell disease. He has been discharged from our hematology clinic due to diversion of his pain medication and noncompliance. He has had multiple no shows. He has a history FF disease. He was previously patient of in [employer] and transferred his care [place] around 2009. From his sickle-cell disease, he had complications of a stroke and has had residual left-sided weakness ever since. He has chronic pain in-between his crises episodes. He has frequent vaso-occlusive pain crises. He uses the emergency room quite frequently. He has not established with a hematology since being discharged from clinic. He was last seen by my partner Dr. Dawson Austin during an admission to [facility]. Review of electronic medical record shows multiple blood transfusions. His last transfusion at [facility] was March of 2016. He has been transfused a total of 23 units of packed red cells since 2009. The transfusions have been ordered for a hemoglobin of 6.6 at the time of the consultation. Mr. Henderson complained of his typical pain in the chest. He has joint pain and crises-like pains. He was admitted voluntarily for depression. His bilirubin is elevated predominantly indirect liver functions, AST mildly elevated. His last ferritin from 2003 was 1200. His reticulocyte count is high, which suggests reticulocytosis. His hemoglobin electrophoresis shows 76% hemoglobin-S consistent with previous transfusion, also consistent with hemoglobin-SS disease instead of trait. He denies any changes in his weakness. The rest of review of systems is negative. PAST MEDICAL HISTORY: 1. Depression. 2. Sickle-cell disease with multiple vaso-occlusive pain crises. 3. History of CVA with left-sided residual weakness. 4. History of priapism. 5. History of asthma. PAST SURGICAL HISTORY: 1. Cholecystectomy. 2. Surgery for priapism. 3. Port placement. FAMILY HISTORY: Family history is significant for parents with at least trait. SOCIAL HISTORY: Quit smoking. Denies any alcohol use. He uses recreational drugs. ALLERGIES: 1. IBUPROFEN. 2. METHADONE. 3. TRAMADOL. 4. SHRIMP. CURRENT MEDICATIONS: 1. [place]. 2. Morphine. 3. Protonix. 4. Naprosyn. 5. Trazodone. 6. Seroquel. 7. Nicotine patch. 8. B1. 9. Folate. 10. Theragran. 11. Multivitamin. 12. Benadryl PRN. 13. Elavil. 14. Hydrea. 15. Lorazepam PRN. PHYSICAL EXAMINATION: VITAL SIGNS: Temperature 98.5, heart rate 60, respiratory rate 18, blood pressure 99/57, saturation 98%. GENERAL: Mr. Henderson is a slender well-developed man who looks older than his stated age. HEAD, EYES, EARS, NOSE, THROAT: His pupils are round and reactive. The sclerae are mildly icteric. Oropharynx is clear. NECK: The neck is supple. LUNGS: Clear. CARDIOVASCULAR: Mild bradycardia. ABDOMEN: Benign. LOWER EXTREMITIES: With no edema. He has left-sided weakness unchanged. LABS: Hemoglobin of 6.6, platelet count of 300,000. BUN of 8, creatinine of 0.7. ASSESSMENT AND PLAN: Mr. Henderson is a 46-year-old man well-known patient with sickle-cell disease and frequent vaso-occlusive pain crises. He has chronic pain. He is admitted to psychiatry voluntarily for his depression. Hematology/oncology has been consulted for management of his sickle-cell disease and sickle-cell anemia during his psychiatric admission. I discussed with Mr. Henderson our plan to support him. He has evidence of hemolysis with increased bilirubin. This is due to his sickle-cell. We will monitor his response with two units of packed red cell transfusion. This often helps mitigate vaso-occlusive pain crises. His pain medication is coordinated by his psychiatry team. He typically feels better after the transfusion and will monitor his response. Difficulty in Mr. Henderson's chronic sickle-cell condition is his compliance with hematologists. He has not found a new occasional babysitter to manage his sickle-cell. He states he has transportation issues. He was last seen by my partner, Dr. Austin, on April 08, 2016. We will assist in managing his sickle-cell symptoms during this admission. He has been discharged from our hematology clinic due to diversion of his narcotic pain medication and noncompliance with follow up. Mr. Henderson' questions were answered to his satisfaction. The above was discussed with his nurse. MD LYN Matthews/LUCHO /1:11 PM /1:56 PM KENNETH
--- NOTE | 2016-07-20 16:10 | HHI.PYPN ---
Subjective Remarks Patient seen in room with nurse [place], patient calm cooperative coping well with his medical treatment for sickle cell disease. Patient feels his mood is getting better he is compliant with medications feel that they are helping. Denies suicidality at this time. For now continue treatment Review of Systems Except as stated in HPI: all other systems reviewed are Neg Objective Alert: Yes [place]: Person, Place, Situation Mood: Depressed Affect: Restricted, Flat Memory Intact: Recent (mildly impaired) Hallucinations: Auditory (admitted to auditory hallucination ) Delusions: Yes Delusion Type: Paranoid Suicidal: Ideation (patient denied any suicidal ideation intentions or plan in the hospital) Homicidal: Ideation (denies) Insight/Judgement Poor Labs Test 07/20/16 07/20/16 09:55 11:55 White Blood Count 11.0 TH/MM3 Red Blood Count 2.11 MIL/MM3 Hemoglobin 6.6 GM/DL Hematocrit 19.0 % Mean Corpuscular Volume 90.2 FL Mean Corpuscular Hemoglobin 31.4 PG Mean Corpuscular Hemoglobin 34.8 % Concent Red Cell Distribution Width 17.5 % Platelet Count 300 TH/MM3 Mean Platelet Volume 8.5 FL Neutrophils (%) (Auto) % Lymphocytes (%) (Auto) % Monocytes (%) (Auto) % Eosinophils (%) (Auto) % Basophils (%) (Auto) % Neutrophils # (Auto) TH/MM3 Lymphocytes # (Auto) TH/MM3 Monocytes # (Auto) TH/MM3 Eosinophils # (Auto) TH/MM3 Basophils # (Auto) TH/MM3 CBC Comment AUTO DIFF Differential Total Cells 100 Counted Neutrophils % (Manual) 73 % Band Neutrophils % 1 % Lymphocytes % 13 % Monocytes % 11 % Eosinophils % 1 % Neutrophils # (Manual) 8.3 TH/MM3 Myelocytes 1 % Nucleated Red Blood Cells 1 /100 WBC Differential Comment FINAL DIFF MANUAL Platelet Estimate NORMAL Platelet Morphology Comment NORMAL Sickle Cells 1+ Target Cells 1+ Acanthocytes 1+ Reticulocyte Count 5.5 % Absolute Reticulocyte Count 115.3 MIL/L Haptoglobin LESS THAN 10 MG/DL Sodium Level 140 MEQ/L Potassium Level 4.2 MEQ/L Chloride Level 108 MEQ/L Carbon Dioxide Level 27.5 MEQ/L Anion Gap 5 MEQ/L Blood Urea Nitrogen 8 MG/DL Creatinine 0.70 MG/DL Estimat Glomerular Filtration 148 ML/MIN Rate Random Glucose 81 MG/DL Calcium Level 8.8 MG/DL Total Bilirubin 2.5 MG/DL Direct Bilirubin 0.6 MG/DL Aspartate Amino Transf 53 U/L (AST/SGOT) Alanine Aminotransferase 51 U/L (ALT/SGPT) Alkaline Phosphatase 72 U/L Total Protein 7.3 GM/DL Albumin 4.0 GM/DL Free Thyroxine 0.90 NG/DL Free Triiodothyronine (T3) 1.65 PG/ML pg/dL Blood Type O POSITIVE Antibody Screen NEGATIVE Crossmatch Leukocyte-Reduced Red Blood Cells Blood Bank Comment Vitals/IOs Vital Signs Date Time Temp Pulse Resp B/P Pulse Ox O2 Delivery O2 Flow Rate FiO2 07/20/16 15:09 98 21 07/20/16 12:00 98.5 56 18 109/51 07/16/16 16:31 Room Air Intake and Output 07/19/16 07/19/16 07/20/16 08:00 16:00 00:00 Intake Total 450 ml Balance 450 ml Assessment & Plan Problem List: (1) Major depressive disorder ICD Code: F32.9 (2) Polysubstance dependence ICD Code: F19.20 Assessment & Plan Estimated LOS: days patient continues depressed but improving, compliant medications, compliant with medical treatment also Justification for Cont. Inpt. At this time patient would significantly decompensated placed in the lower level of care Discharge Planning To be determined Request HC Surrog/Guard Advoc?: No Problem Qualifiers (1) Major depressive disorder: Qualified Code: F33.1 - Moderate episode of recurrent major depressive disorder Neville Durant MD Jul 20, 2016 16:10
[2016-07-20] MEDS: traZODone HCL 100 MG TAB PO SCH (21:01)
[2016-07-20] MEDS: AMITRIPTYLINE HCL 25 MG TAB PO SCH (23:09)
[2016-07-21] MEDS: MORPHINE SULFATE 4 MG/ML INJ IV PUSH PRN ×6 (00:11→22:44)
[2016-07-21] MEDS: ACETAMINOPHEN/HYDROcodone 325 MG/10 MG TAB PO PRN ×3 (02:52→20:26)
[2016-07-21 05:49] LABS: BASOPHIL # 0.1 TH/MM3 (0-0.2); BASOPHIL % 0.9 % (0.0-2.0); EOSINOPHIL # 0.1 TH/MM3 (0-0.4); EOSINOPHIL % 1.2 % (0.0-4.0); LYMPH % 37.2 % (9.0-44.0); LYMPHOCYTE # 3.9 TH/MM3 (1.0-4.8); MEAN CELL VOLUME 90.2 FL (80.0-100.0); MEAN CORPUSCULAR HEMOGLOBIN 31.9 PG (27.0-34.0); MEAN CORPUSCULAR HGB CONC 35.4 % (32.0-36.0); MONO % 3.1 % (0.0-8.0); NEUT % 57.6 % (16.0-70.0); PLATELET COUNT 265 TH/MM3 (150-450); RED BLOOD COUNT 2.32 MIL/MM3 (4.50-5.90); RED CELL DISTRIBUTION WIDTH 16.7 % (11.6-17.2); RETIC % 3.6 % (0.4-3.0); WHITE BLOOD COUNT 10.4 TH/MM3 (4.0-11.0)
[2016-07-21 06:00] VITALS: BP 100/59; PULSE 63; RESP 16; TEMP 98.1; O2SAT 95
[2016-07-21 06:20] LABS: ALKALINE PHOSPHATASE 73 U/L (45-117); ALT (GPT) 57 U/L (12-78); ANION GAP 7 MEQ/L (5-15); AST (GOT) 46 U/L (15-37); BICARBONATE 23.2 MEQ/L (21.0-32.0); BLOOD UREA NITROGEN 9 MG/DL (7-18); CHLORIDE 110 MEQ/L (98-107); GLOMERULAR FILTRATION RATE 146 ML/MIN (>89); INDIRECT BILIRUBIN 1.4 MG/DL (0.0-0.8); LDH SERUM 346 U/L (87-241); MAGNESIUM 2.2 MG/DL (1.5-2.5); POTASSIUM 4.2 MEQ/L (3.5-5.1); SODIUM (NA) 140 MEQ/L (136-145)
[2016-07-21 06:29] LABS: HEMO FLAGS AUTO DIFF; REVIEW FLAG AUTO DIFF
[2016-07-21 06:31] LABS: HEMATOCRIT 20.9 % (39.0-51.0)
[2016-07-21] MEDS: ONDANSETRON ODT 4 MG TAB SL PRN (08:01)
[2016-07-21 08:24] LABS: BASOPHILS 1 % (0-2); CORRECTED NUCLEATED RBC 1 /100 WBC (0-0); EOSINOPHILS 5 % (0-4); NEUTROPHIL # MANUAL DIFF 7.1 TH/MM3 (1.8-7.7); PLATELET ESTIMATE SMEAR NORMAL (NORMAL); PLATELET MORPHOLOGY NORMAL (NORMAL); POLYS (SEG NEUTROPHILS) 68 % (16-70); SCAN/DIFF FINAL DIFF MANUAL; WBC DIFF SAMPLE 100
[2016-07-21 08:27] VITALS: O2SAT 98
[2016-07-21 08:27] LABS: OVALOCYTES 1+ (NORMAL); SICKLE CELLS 1+ (NORMAL); TARGET CELLS 1+ (NORMAL)
[2016-07-21 08:33] VITALS: BP 112/55; PULSE 70; RESP 16; TEMP 97.7; O2SAT 96
[2016-07-21] MEDS: PANTOPRAZOLE SOD 20 MG DELAYED RELEASE TAB PO SCH (08:49)
[2016-07-21] MEDS: THIAMINE HCL 100 MG TAB PO SCH (08:49)
[2016-07-21] MEDS: QUEtiapine FUMARATE 100 MG TAB PO SCH ×2 (08:49→20:25)
[2016-07-21] MEDS: MULTIVITAMIN TAB PO SCH (08:49)
[2016-07-21] MEDS: FOLIC ACID 1 MG TAB PO SCH (08:50)
[2016-07-21] MEDS: DOCUSATE SODIUM 100 MG CAP PO SCH ×2 (08:50→20:25)
[2016-07-21] MEDS: NICOTINE 21 MG/24 HR PATCH T-DERMAL SCH (08:56)
[2016-07-21] MEDS: REMOVE OLD PATCH T-DERMAL SCH (08:56)
[2016-07-21] MEDS: NAPROXEN 500 MG TAB PO SCH ×2 (09:00→20:26)
[2016-07-21] MEDS: HYDROXYUREA 500 MG CAP PO SCH ×3 (09:00→18:00)
[2016-07-21] MEDS: SODIUM CHLOR 0.9% 1000 ML INJ 1,000 ML IV SCH ×3 (09:25→23:09)
--- NOTE | 2016-07-21 09:44 | HHI.PR ---
Subjective Remarks Follow up visit sickle cell crisis, anemia, pain. Pt. seen today. States he still have joint pain. He received 1 unit BT yesterday without adverse reaction. IVF hydration continues. Denies SOB/ dyspnea, fevers, chills, chest pain, n/v/d. Objective Vitals Vital Signs Date Time Temp Pulse Resp B/P Pulse Ox O2 Delivery O2 Flow Rate FiO2 07/21/16 08:33 97.7 70 16 112/55 96 07/21/16 08:27 98 21 07/21/16 06:00 98.1 63 16 100/59 95 07/21/16 03:40 18 07/21/16 03:40 18 07/20/16 19:20 98.1 69 18 118/53 98 07/20/16 18:15 97.8 65 18 113/53 95 07/20/16 17:59 98.4 70 17 113/56 97 07/20/16 17:59 98.4 70 17 113/56 97 07/20/16 15:09 98 21 07/20/16 12:00 98.5 56 18 109/51 100 I/O 07/20/16 07/20/16 07/20/16 07/21/16 07/21/16 07/21/16 07:00 15:00 23:00 07:00 15:00 23:00 Intake Total 200 ml 1440 ml 924 ml 1180 ml Output Total 750 ml Balance 200 ml 1440 ml 174 ml 1180 ml Intake Oral 200 ml 1440 ml 325 ml 480 ml IV Total 264 ml 700 ml Packed Cells 335 ml Output Urine Total 750 ml # Voids 1 2 2 # Bowel Movements 1 Result Diagram: 07/21/16 0522 07/21/16 05 Objective Remarks GENERAL: This is a thinly appearing, well-developed patient, in no apparent distress. SKIN: No rashes, ecchymoses or lesions. Cool and dry. HEAD: Atraumatic. Normocephalic. No temporal or scalp tenderness. EYES: Pupils equal round and reactive. Scleral icterus present Bilat. No injection or drainage. ENT: Nose without bleeding. Airway patent. NECK: Trachea midline. No JVD or lymphadenopathy. CARDIOVASCULAR: Regular rate and rhythm without murmurs, gallops, or rubs. Chest painful to palpation. RESPIRATORY: Clear to auscultation. Breath sounds equal bilaterally. No wheezes , rales, or rhonchi. GASTROINTESTINAL: Abdomen soft, tender to palpate, nondistended. Bowel Sounds active 4. MUSCULOSKELETAL: Extremities without clubbing, cyanosis, or edema. Left-sided weakness. Joints tender to palpation. NEUROLOGICAL: Alert and awake. Follows commands. Normal speech. A/P Problem List: (1) Polysubstance dependence ICD Code: F19.20 Status: Acute (2) Major depressive disorder ICD Code: F32.9 Status: Acute (3) Sickle cell pain crisis ICD Code: D57.00 Status: Acute (4) Hypertension ICD Code: I10 Status: Chronic Assessment and Plan Patient is a 46-year-old male who came in to the hospital under [place]er act from [employer] police officer for 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 He is now admitted to inpatient psychiatric unit for further evaluation. Consulted for medical management. Major depressive disorder, polysubstance abuse, suicidal ideation - management by psychiatry team Alcohol abuse - [facility] protocol in place - Folic acid, multivitamins. Thiamine Coccaine use - counselled. If elevated BP monitor BB use. Tobacco use - nicotine patch Substance abuse - patient was counseled. Discussed cocaine use with prior history of CVA. GERD - continue pantoprazole Sickle cell anemia - continue hydroxyurea - Encourage fluid hydration. Increasing pain now, Naprosyn ordered. - H&H 7.2/20.8. Will repeat labs including reticulocyte count medical haptoglobin, direct bilirubin. - Pt. transfused 1 unit PRBC yesterday. He was seen by Dr. Antonio. Will transfuse 1 more unit , monitor and observed pt. Sickle cell crisis - Low h/h 6.6/19 07/20/15. Enc fluid hydration. Pain management. - Pain management - lortabs, IV morphine for breakthrough pain - Continue IVF. - Consult Heme, input appreciated. - Add Blood transfusion x 1 unit today, he received 1 now. H/H 7.4/20.9 - Repeat labs Low TSH - check T3, T4 - Euthyroid sick syndrome. Pt. on sickle crisis with hemolytic anemia. - Reassess after recovering from illness. HTN - patient previously on clonidine 0.3mg twice a day, however BP has been noted to be low, heart rate in the 50s - clonidine 0.1 mg when necessary for now - Monitor BP trend DVT prop - encourage early ambulation Discussed with patient, nursing Written by Jessie Bryant, acting as scribe for Dr. Roland on 07/20/16 at 10: 32. Attending Statement The documentation accurately reflects the work performed [id number] by me on 07/20/16 at 10:32. Problem Qualifiers (1) Major depressive disorder: Qualified Code: F33.41 - Recurrent major depressive disorder, in partial remission Jessie Blackwood Jul 21, 2016 09:44 Dionicio Christopher MD Jul 31, 2016 00:22
--- NOTE | 2016-07-21 12:29 | HHI.PYPN ---
Subjective Remarks On psychiatric evaluation today patient is found with a brighter affect, he reports good mood, he feels safe in the unit, patient explains that when he is in a structured environment his suicidal ideation disappears, he has joint pain on and off, as well as fatigue, he reports increased appetite, level of concentration and energy today, he has been fully compliant with medications, he denies suicidal or homicidal ideation, he denies visual and auditory hallucinations. Patient has been reported to be calm and cooperative in the unit, no behavioral or mood dysregulation reported. Review of Systems Constitutional: COMPLAINS OF: Fatigue, DENIES: Diaphoretic episodes, Fever, Weight gain, Weight loss, Chills, Dizziness, Change in appetite, Night Sweats Endocrine: DENIES: Heat/cold intolerance, Polydipsia, Polyuria, Polyphagia Eyes: DENIES: Blurred vision, Diplopia, Eye inflammation, Eye pain, Vision loss , Photosensitivity, Double Vision Ears, nose, mouth, throat: DENIES: Tinnitus, Hearing loss, Vertigo, Nasal discharge, Oral lesions, Throat pain, Hoarseness, Ear Pain, Running Nose, Epistaxis, Sinus Pain, Toothache, Odynophagia Respiratory: DENIES: Apneas, Cough, Snoring, Wheezing, Hemoptysis, Sputum production, Shortness of breath Cardiovascular: DENIES: Chest pain, Palpitations, Syncope, Dyspnea on Exertion , PND, Lower Extremity Edema, Orthopnea, Claudication Gastrointestinal: DENIES: Abdominal pain, Black stools, Bloody stools, Constipation, Diarrhea, Nausea, Vomiting, Difficulty Swallowing, Anorexia Musculoskeletal: COMPLAINS OF: Joint pain, Back pain Hematologic/lymphatic: DENIES: Bruising, Lymphadenopathy Immunologic/allergic: DENIES: Eczema, Urticaria Neurologic: DENIES: Abnormal gait, Headache, Localized weakness, Paresthesias, Seizures, Speech Problems, Tremor, Poor Balance Objective Alert: Yes [place]: Person, Place, Date, Situation Mood: Calm, Depressed Affect: Euthymic Memory Intact: Immediate, Recent (mildly impaired), Remote Hallucinations: Other (he denies visual and auditory hallucinations today) Delusions: Yes Delusion Type: Other (no delusions elicited) Suicidal: Ideation (he denies) Homicidal: Ideation (denies) Insight/Judgement fair Labs Test 07/21/16 05:22 White Blood Count 10.4 TH/MM3 Red Blood Count 2.32 MIL/MM3 Hemoglobin 7.4 GM/DL Hematocrit 20.9 % Mean Corpuscular Volume 90.2 FL Mean Corpuscular Hemoglobin 31.9 PG Mean Corpuscular Hemoglobin 35.4 % Concent Red Cell Distribution Width 16.7 % Platelet Count 265 TH/MM3 Mean Platelet Volume 8.5 FL Neutrophils (%) (Auto) 57.6 % Lymphocytes (%) (Auto) 37.2 % Monocytes (%) (Auto) 3.1 % Eosinophils (%) (Auto) 1.2 % Basophils (%) (Auto) 0.9 % Neutrophils # (Auto) 6.0 TH/MM3 Lymphocytes # (Auto) 3.9 TH/MM3 Monocytes # (Auto) 0.3 TH/MM3 Eosinophils # (Auto) 0.1 TH/MM3 Basophils # (Auto) 0.1 TH/MM3 CBC Comment AUTO DIFF Differential Total Cells 100 Counted Neutrophils % (Manual) 68 % Lymphocytes % 24 % Monocytes % 2 % Eosinophils % 5 % Basophils % 1 % Neutrophils # (Manual) 7.1 TH/MM3 Nucleated Red Blood Cells 1 /100 WBC Differential Comment FINAL DIFF MANUAL Platelet Estimate NORMAL Platelet Morphology Comment NORMAL Sickle Cells 1+ Target Cells 1+ Ovalocytes 1+ Reticulocyte Count 3.6 % Absolute Reticulocyte Count 84.0 MIL/L Haptoglobin LESS THAN 10 MG/DL Sodium Level 140 MEQ/L Potassium Level 4.2 MEQ/L Chloride Level 110 MEQ/L Carbon Dioxide Level 23.2 MEQ/L Anion Gap 7 MEQ/L Blood Urea Nitrogen 9 MG/DL Creatinine 0.71 MG/DL Estimat Glomerular Filtration 146 ML/MIN Rate Random Glucose 96 MG/DL Calcium Level 8.5 MG/DL Phosphorus Level 4.0 MG/DL Magnesium Level 2.2 MG/DL Total Bilirubin 2.0 MG/DL Direct Bilirubin 0.6 MG/DL Indirect Bilirubin 1.4 MG/DL Aspartate Amino Transf 46 U/L (AST/SGOT) Alanine Aminotransferase 57 U/L (ALT/SGPT) Alkaline Phosphatase 73 U/L Lactate Dehydrogenase 346 U/L Total Protein 7.1 GM/DL Albumin 3.8 GM/DL Vitals/IOs Vital Signs Date Time Temp Pulse Resp B/P Pulse Ox O2 Delivery O2 Flow Rate FiO2 07/21/16 08:33 97.7 70 16 112/55 96 07/21/16 08:27 21 Intake and Output 07/20/16 07/20/1607/21/17 08:00 16:00 00:00 Intake Total 200 ml 1440 ml 924 ml Output Total 750 ml Balance 200 ml 1440 ml 174 ml Assessment & Plan Problem List: (1) Major depressive disorder Assessment & Plan: On secondary evaluation today patient shows evident improvement in mood, he reports feeling much better, denies suicidal or homicidal ideation, denies visual and auditory hallucination, patient has been fully compliant with medications. He will continue current psychotropic regimen , we'll start working in safe discharge planning. ICD Code: F32.9 (2) Polysubstance dependence ICD Code: F19.20 Assessment & Plan Estimated LOS: days Justification for Cont. Inpt. Coordinating safe discharge Request HC Surrog/Guard Advoc?: No Problem Qualifiers (1) Major depressive disorder: Qualified Code: F33.1 - Moderate episode of recurrent major depressive disorder Leandro Gerber MD Jul 21, 2016 12:29
[2016-07-21 13:05] VITALS: BP 107/61; PULSE 62; RESP 16; TEMP 98.2; O2SAT 97
--- NOTE | 2016-07-21 13:27 | PD.ONC.PN ---
Subjective Subjective Remarks Afebrile overnight. Patient resting comfortably. He continues to have crises pain in his neck chest and back. No other complaints. He is eating well and urinating well. No complaint of priapism. Objective Data Date Time Temp Pulse Resp B/P Pulse Ox O2 Delivery O2 Flow Rate FiO2 07/21/16 13:05 98.2 62 16 107/61 97 07/21/16 08:33 97.7 70 16 112/55 96 07/21/16 08:27 98 21 07/21/16 06:00 98.1 63 16 100/59 95 07/21/16 03:40 18 07/21/16 03:40 18 07/20/16 19:20 98.1 69 18 118/53 98 07/20/16 18:15 97.8 65 18 113/53 95 07/20/16 17:59 98.4 70 17 113/56 97 07/20/16 17:59 98.4 70 17 113/56 97 07/20/16 15:09 98 21 07/21/16 07/21/16 07/21/16 07:00 15:00 23:00 Intake Total 1180 ml Balance 1180 ml Result Diagram: 07/21/16 0522 07/21/16 0522 Laboratory Results Laboratory Tests Test 07/21/16 05:22 White Blood Count 10.4 TH/MM3 Red Blood Count 2.32 MIL/MM3 Hemoglobin 7.4 GM/DL Hematocrit 20.9 % Mean Corpuscular Volume 90.2 FL Mean Corpuscular Hemoglobin 31.9 PG Mean Corpuscular Hemoglobin 35.4 % Concent Red Cell Distribution Width 16.7 % Platelet Count 265 TH/MM3 Mean Platelet Volume 8.5 FL Neutrophils (%) (Auto) 57.6 % Lymphocytes (%) (Auto) 37.2 % Monocytes (%) (Auto) 3.1 % Eosinophils (%) (Auto) 1.2 % Basophils (%) (Auto) 0.9 % Neutrophils # (Auto) 6.0 TH/MM3 Lymphocytes # (Auto) 3.9 TH/MM3 Monocytes # (Auto) 0.3 TH/MM3 Eosinophils # (Auto) 0.1 TH/MM3 Basophils # (Auto) 0.1 TH/MM3 CBC Comment AUTO DIFF Differential Total Cells 100 Counted Neutrophils % (Manual) 68 % Lymphocytes % 24 % Monocytes % 2 % Eosinophils % 5 % Basophils % 1 % Neutrophils # (Manual) 7.1 TH/MM3 Nucleated Red Blood Cells 1 /100 WBC Differential Comment FINAL DIFF MANUAL Platelet Estimate NORMAL Platelet Morphology Comment NORMAL Sickle Cells 1+ Target Cells 1+ Ovalocytes 1+ Reticulocyte Count 3.6 % Absolute Reticulocyte Count 84.0 MIL/L Haptoglobin LESS THAN 10 MG/DL Sodium Level 140 MEQ/L Potassium Level 4.2 MEQ/L Chloride Level 110 MEQ/L Carbon Dioxide Level 23.2 MEQ/L Anion Gap 7 MEQ/L Blood Urea Nitrogen 9 MG/DL Creatinine 0.71 MG/DL Estimat Glomerular Filtration 146 ML/MIN Rate Random Glucose 96 MG/DL Calcium Level 8.5 MG/DL Phosphorus Level 4.0 MG/DL Magnesium Level 2.2 MG/DL Total Bilirubin 2.0 MG/DL Direct Bilirubin 0.6 MG/DL Indirect Bilirubin 1.4 MG/DL Aspartate Amino Transf 46 U/L (AST/SGOT) Alanine Aminotransferase 57 U/L (ALT/SGPT) Alkaline Phosphatase 73 U/L Lactate Dehydrogenase 346 U/L Total Protein 7.1 GM/DL Albumin 3.8 GM/DL Administered Medications Medications (Trade) Dose Ordered Sig/John Route PRN Reason Start Time Stop Time Status Last Admin Dose Admin Heparin Sodium (Porcine) (Heparin Central Flush) 500 units UNSCH IVF 07/16/16 15:15 07/20/16 10:01 IV Flush (NS Flush) 5 ml UNSCH PRN IVF SEE PROTOCOL 07/16/16 15:15 07/20/16 10:01 Diphenhydramine HCl (Benadryl) 50 mg HS PRN PO INSOMNIA 07/16/16 21:00 07/20/16 21:05 Acetaminophen (Tylenol) 650 mg Q4H PRN PO Pain 1-5 or Temp >101F 07/16/16 16:00 07/19/16 19:50 Nicotine (Habitrol 21 Mg Patch.24 Hr) 1 patch DAILY T-DERMAL 07/17/16 09:00 07/21/16 08:56 Lorazepam (Ativan) 2 mg Q2H PRN PO CIWA 11-14 07/16/16 16:00 07/18/16 20:54 Miscellaneous Information 1 DAILY T-DERMAL 07/17/16 09:00 07/21/16 08:56 Thiamine HCl (Vitamin B1) 100 mg DAILY PO 07/17/16 09:00 07/21/16 08:49 Folic Acid (Folate) 1 mg DAILY PO 07/17/16 09:00 07/21/16 08:50 Amitriptyline HCl (Elavil) 25 mg HS PO 07/16/16 21:00 07/20/16 23:09 Hydroxyurea (Hydrea) 500 mg TID PO 07/16/16 18:00 07/21/16 09:00 Multivitamins (Theragran) 1 tab DAILY PO 07/17/16 09:00 07/21/16 08:49 Ondansetron HCl (Zofran Odt) 4 mg Q8HR PRN SL Nausea/Vomiting 07/16/16 16:00 07/21/16 08:01 Quetiapine Fumarate (SEROquel) 100 mg BID PO 07/17/16 12:00 07/21/16 08:49 Trazodone HCl (Desyrel) 100 mg HS PO 07/17/16 21:00 07/20/16 21:01 Naproxen (Naprosyn) 500 mg Q12HR PO 07/18/16 21:45 07/21/16 09:00 Pantoprazole Sodium 20 mg 20 mg DAILY PO 07/19/16 09:00 07/21/16 08:49 Sodium Chloride (NS 1000 ml Inj) 1,000 ml @ 125 mls/hr Q8H IV 07/20/16 09:00 07/21/16 09:25 Acetaminophen/ Hydrocodone Bitart ([place] 10-325 Mg) 1 tab Q4H PRN PO PAIN SCALE 5 TO 10 07/20/16 11:15 07/21/16 10:52 Morphine Sulfate (Morphine Inj) 2 mg Q3H PRN IV PUSH BREAKTHROUGH PAIN 07/20/16 11:15 07/21/16 09:05 Docusate Sodium (Colace) 100 mg BID PO 07/20/16 13:30 07/21/16 08:50 Objective Remarks GENERAL: Middle aged male, sitting up in bed in nad. SKIN: Warm and dry. HEAD: Normocephalic. EYES: No injection or drainage. NECK: Supple, trachea midline. CARDIOVASCULAR: Regular rate and rhythm RESPIRATORY: Breath sounds equal bilaterally. No accessory muscle use. GASTROINTESTINAL: Abdomen soft, non-tender, nondistended. EXTREMITIES: No cyanosis. NEUROLOGICAL: No obvious focal deficit. Awake, alert, and oriented x3. Assessment/Plan Problem List: (1) Sickle cell anemia Status: Chronic Plan: --hgb 7/ today, no need for transfusion --IVF, pain management, Hydrea Assessment 46y/o male with sickle cell disease, admitted to psychiatry for depression. Hematology following for assistance with sickle cell disease/anemia. h/o Depression. Sickle-cell disease with multiple vaso-occlusive pain crises. CVA with left-sided residual weakness. priapism. asthma. Plan 1. continue supportive care with IVF, hydrea, pain management 2. no need for transfusion today. Attending Statement The exam, history, and the medical decision-making described in the above note were completed with the assistance of the mid-level provider. I reviewed and agree with the findings presented. I attest that I had a [id number] encounter with the patient on the same day, and personally performed and documented my assessment and findings in the medical record. PT seen and examined. Plan to move to [facility] to be with sister, family support. c/o nausea despite Zofran. requesting phenergan. DC Atarax. Phenergan ordered iV prn infuse over 1-2 minutes diluted in 10ml. Tonya Crandall Jul 21, 2016 13:27 Nadiya Virk MD Jul 21, 2016 14:31
[2016-07-21 18:59] VITALS: BP 102/52; PULSE 67; RESP 18; TEMP 98.3; O2SAT 95
[2016-07-21] MEDS: traZODone HCL 100 MG TAB PO SCH (20:25)
[2016-07-21] MEDS: AMITRIPTYLINE HCL 25 MG TAB PO SCH (22:36)
[2016-07-22] VITALS (10 sets, daily range): BP systolic 97–119; BP diastolic 46–59; PULSE 61–73; RESP 16–18; TEMP 97.9–98.7; O2SAT 95–98
[2016-07-22] MEDS: MORPHINE SULFATE 4 MG/ML INJ IV PUSH PRN ×4 (04:15→20:19)
[2016-07-22 07:11] LABS: MEAN CELL VOLUME 89.1 FL (80.0-100.0); MEAN CORPUSCULAR HEMOGLOBIN 31.2 PG (27.0-34.0); PLATELET COUNT 257 TH/MM3 (150-450); RED BLOOD COUNT 2.12 MIL/MM3 (4.50-5.90); RED CELL DISTRIBUTION WIDTH 17.6 % (11.6-17.2); RETIC % 3.6 % (0.4-3.0); WHITE BLOOD COUNT 13.2 TH/MM3 (4.0-11.0)
[2016-07-22 07:27] LABS: POTASSIUM 4.4 MEQ/L (3.5-5.1)
[2016-07-22 07:28] LABS: REVIEW FLAG AUTO DIFF
[2016-07-22 07:31] LABS: HEMATOCRIT 18.9 % (39.0-51.0)
[2016-07-22] MEDS: PROMETHAZINE INJ 25 MG/ML VIAL IV-CENTRAL PRN ×2 (07:52→18:30)
[2016-07-22] MEDS: DOCUSATE SODIUM 100 MG CAP PO SCH ×2 (08:46→20:22)
[2016-07-22] MEDS: QUEtiapine FUMARATE 100 MG TAB PO SCH ×2 (08:46→20:22)
[2016-07-22] MEDS: THIAMINE HCL 100 MG TAB PO SCH (08:46)
[2016-07-22] MEDS: NICOTINE 21 MG/24 HR PATCH T-DERMAL SCH (08:46)
[2016-07-22] MEDS: MULTIVITAMIN TAB PO SCH (08:46)
[2016-07-22] MEDS: PANTOPRAZOLE SOD 20 MG DELAYED RELEASE TAB PO SCH (08:46)
[2016-07-22] MEDS: NAPROXEN 500 MG TAB PO SCH ×2 (08:46→20:22)
[2016-07-22] MEDS: FOLIC ACID 1 MG TAB PO SCH (08:46)
[2016-07-22] MEDS: REMOVE OLD PATCH T-DERMAL SCH (08:46)
[2016-07-22] MEDS: HYDROXYUREA 500 MG CAP PO SCH ×3 (09:00→18:00)
[2016-07-22] MEDS: SODIUM CHLOR 0.9% 1000 ML INJ 1,000 ML IV SCH ×2 (09:25→17:25)
--- NOTE | 2016-07-22 11:27 | HHI.PYPN ---
Subjective Remarks On psychiatric evaluation today, patient was calm and cooperative, he was seen alone neonatal social worker Temi, he reports a good mood, he says that he is happy to be here with people that has been very respectful have taken very good care of him, he denies depressive symptoms at this moment, he denies suicidal or homicidal ideation. He denies visual and auditory hallucinations. Patient is oriented 3. Medication compliant, with no significant side effects. Review of Systems Other He doesn't have any somatic complaints at this moment Objective Alert: Yes [place]: Person, Place, Date, Situation Mood: Calm, Depressed Affect: Euthymic Memory Intact: Immediate, Recent (mildly impaired), Remote Hallucinations: Other (he denies visual and auditory hallucinations today) Delusions: Yes Delusion Type: Other (no delusions elicited) Suicidal: Ideation (he denies) Homicidal: Ideation (denies) Insight/Judgement Good Labs Test 07/22/16 07/22/16 06:50 10:49 White Blood Count 13.2 TH/MM3 Red Blood Count 2.12 MIL/MM3 Hemoglobin 6.6 GM/DL Hematocrit 18.9 % Mean Corpuscular Volume 89.1 FL Mean Corpuscular Hemoglobin 31.2 PG Mean Corpuscular Hemoglobin 35.0 % Concent Red Cell Distribution Width 17.6 % Platelet Count 257 TH/MM3 Mean Platelet Volume 8.4 FL Reticulocyte Count 3.6 % Absolute Reticulocyte Count 75.6 MIL/L Sodium Level 142 MEQ/L Potassium Level 4.4 MEQ/L Chloride Level 111 MEQ/L Carbon Dioxide Level 24.0 MEQ/L Anion Gap 7 MEQ/L Blood Urea Nitrogen 8 MG/DL Creatinine 0.61 MG/DL Estimat Glomerular Filtration 174 ML/MIN Rate Random Glucose 91 MG/DL Calcium Level 8.5 MG/DL Lactate Dehydrogenase 320 U/L Blood Type O POSITIVE Crossmatch Leukocyte-Reduced Red Blood Cells Blood Bank Comment Vitals/IOs Vital Signs Date Time Temp Pulse Resp B/P Pulse Ox O2 Delivery O2 Flow Rate FiO2 07/22/16 08:16 98.2 61 18 104/54 98 07/21/16 08:27 21 Intake and Output 07/21/16 07/21/16 07/22/16 08:00 16:00 00:00 Intake Total 1180 ml 1440 ml 2748 ml Output Total 1355 ml Balance 1180 ml 1440 ml 1393 ml Assessment & Plan Problem List: (1) Major depressive disorder Assessment & Plan: On psychiatric evaluation today patient shows significant improvement in his mood and thought processes, he denies depressive symptoms, denies perceptual disturbances, denies anxiety, he denies suicidal or homicidal ideation. Patient has showed a significant response to medication, no significant side effects. Patient is now ready to be discharged from psychiatric [facility], just pending medical clearance. He will be discharged back to his sister house. ICD Code: F32.9 (2) Polysubstance dependence ICD Code: F19.20 Assessment & Plan Estimated LOS: days Justification for Cont. Inpt. Pending medical clearance, arrangement to be transferred to his sister [facility] in [place]. Request HC Surrog/Guard Advoc?: No Problem Qualifiers (1) Major depressive disorder: Qualified Code: F33.41 - Recurrent major depressive disorder, in partial remission Leandro Gerber MD Jul 22, 2016 11:27
--- NOTE | 2016-07-22 11:58 | HHI.PR ---
Subjective Remarks Follow up visit sickle cell crisis, anemia, pain. Pt. seen today. States he still have joint pain- which she describes as so-so and reports it is about the same as yesterday. Hemoglobin 6.6 today. IVF hydration continues. Denies SOB / dyspnea, fevers, chills, chest pain, n/v/d. Objective Vitals Vital Signs Date Time Temp Pulse Resp B/P Pulse Ox O2 Delivery O2 Flow Rate FiO2 07/22/16 08:16 98.2 61 18 104/54 98 07/22/16 06:00 18 07/22/16 05:40 97.9 63 18 110/50 96 07/21/16 18:59 98.3 67 18 102/52 95 07/21/16 13:05 98.2 62 16 107/61 97 I/O 07/21/16 07/21/16 07/21/16 07/22/16 07/22/16 07/22/16 07:00 15:00 23:00 07:00 15:00 23:00 Intake Total 1180 ml 4188 ml 2984 ml Output Total 1355 ml Balance 1180 ml 2833 ml 2984 ml Intake Oral 480 ml 2860 ml 240 ml IV Total 700 ml 1328 ml 2744 ml Output Urine Total 1355 ml # Voids 2 5 3 # Bowel Movements 0 0 Result Diagram: 07/22/16 0650 07/22/16 0650 Objective Remarks GENERAL: This is a thinly appearing, well-developed patient, in no apparent distress. SKIN: No rashes, ecchymoses or lesions. Cool and dry. HEAD: Atraumatic. Normocephalic. No temporal or scalp tenderness. EYES: Pupils equal round and reactive. Scleral icterus present Bilat. No injection or drainage. ENT: Nose without bleeding. Airway patent. NECK: Trachea midline. No JVD or lymphadenopathy. CARDIOVASCULAR: Regular rate and rhythm without murmurs, gallops, or rubs. Chest painful to palpation. RESPIRATORY: Clear to auscultation. Breath sounds equal bilaterally. No wheezes , rales, or rhonchi. GASTROINTESTINAL: Abdomen soft, tender to palpate, nondistended. Bowel Sounds active 4. MUSCULOSKELETAL: Extremities without clubbing, cyanosis, or edema. Left-sided weakness. Joints tender to palpation. NEUROLOGICAL: Alert and awake. Follows commands. Normal speech. A/P Problem List: (1) Polysubstance dependence ICD Code: F19.20 Status: Acute (2) Major depressive disorder ICD Code: F32.9 Status: Acute (3) Sickle cell pain crisis ICD Code: D57.00 Status: Acute (4) Hypertension ICD Code: I10 Status: Chronic Assessment and Plan Patient is a 46-year-old male who came in to the hospital under [place] act from secretary of police for 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 He is now admitted to inpatient psychiatric unit for further evaluation. Consulted for medical management. Major depressive disorder, polysubstance abuse, suicidal ideation - management by psychiatry team Alcohol abuse - CIWA protocol in place - Folic acid, multivitamins. Thiamine Cocaine use - counselled. If elevated BP monitor BB use. Tobacco use - nicotine patch Substance abuse - patient was counseled. Discussed cocaine use with prior history of CVA. GERD - continue pantoprazole Sickle cell anemia - - Encourage fluid hydration. - H&H 6.6/18.9. Will repeat labs including reticulocyte count medical haptoglobin, direct bilirubin. - Discussed with hematology [employer]ER recommends giving 1 unit packed red blood cells today. Will transfuse 1 more unit - Recheck CBC in a.m. Sickle cell crisis - - Pain management - lortabs, IV morphine for breakthrough pain - Continue IVF. -Also followed by hematology, input appreciated. Low TSH - T4 0.90 - Euthyroid sick syndrome. Pt. on sickle crisis with hemolytic anemia. - Reassess after recovering from illness. HTN - patient previously on clonidine 0.3mg twice a day, however BP has been noted to be low, heart rate in the 50s - clonidine 0.1 mg when necessary for now - Monitor BP trend DVT prop - encourage early ambulation Discussed with patient, nursing\ Written by Savannah Plummer, acting as scribe for Dr. Roland on 07/22/16 at 11:57. Attending Statement The documentation accurately reflects the work performed [id number] by me on at 11:57. Problem Qualifiers (1) Major depressive disorder: Qualified Code: F33.41 - Recurrent major depressive disorder, in partial remission Savannah Plummer Jul 22, 2016 11:58 Dionicio Christopher MD Jul 31, 2016 02:13
--- NOTE | 2016-07-22 13:33 | PD.ONC.PN ---
Subjective Subjective Remarks Afebrile overnight. Patient resting comfortably. He states he feels ok but still has pain in the chest and legs. No new complaints. Per nursing staff, no overnight events. Patient is urinating well. Objective Data Date Time Temp Pulse Resp B/P Pulse Ox O2 Delivery O2 Flow Rate FiO2 07/22/16 08:16 98.2 61 18 104/54 98 07/22/16 06:00 18 07/22/16 05:40 97.9 63 18 110/50 96 07/21/16 18:59 98.3 67 18 102/52 95 07/22/16 07/22/16 07/22/16 07:00 15:00 23:00 Intake Total 2984 ml Balance 2984 ml Result Diagram: 07/22/16 0650 07/22/16 0650 Laboratory Results Laboratory Tests Test 07/22/16 07/22/16 06:50 10:49 White Blood Count 13.2 TH/MM3 Red Blood Count 2.12 MIL/MM3 Hemoglobin 6.6 GM/DL Hematocrit 18.9 % Mean Corpuscular Volume 89.1 FL Mean Corpuscular Hemoglobin 31.2 PG Mean Corpuscular Hemoglobin 35.0 % Concent Red Cell Distribution Width 17.6 % Platelet Count 257 TH/MM3 Mean Platelet Volume 8.4 FL Reticulocyte Count 3.6 % Absolute Reticulocyte Count 75.6 MIL/L Sodium Level 142 MEQ/L Potassium Level 4.4 MEQ/L Chloride Level 111 MEQ/L Carbon Dioxide Level 24.0 MEQ/L Anion Gap 7 MEQ/L Blood Urea Nitrogen 8 MG/DL Creatinine 0.61 MG/DL Estimat Glomerular Filtration 174 ML/MIN Rate Random Glucose 91 MG/DL Calcium Level 8.5 MG/DL Lactate Dehydrogenase 320 U/L Blood Type O POSITIVE Crossmatch Leukocyte-Reduced Red Blood Cells Blood Bank Comment Administered Medications Medications (Trade) Dose Ordered Sig/John Route PRN Reason Start Time Stop Time Status Last Admin Dose Admin Heparin Sodium (Porcine) (Heparin Central Flush) 500 units UNSCH IVF 07/16/16 15:15 07/20/16 10:01 IV Flush (NS Flush) 5 ml UNSCH PRN IVF SEE PROTOCOL 07/16/16 15:15 07/20/16 10:01 Diphenhydramine HCl (Benadryl) 50 mg HS PRN PO INSOMNIA 07/16/16 21:00 1/8/17 21:05 Acetaminophen (Tylenol) 650 mg Q4H PRN PO Pain 1-5 or Temp >101F 07/16/16 16:00 07/19/16 19:50 Nicotine (Habitrol 21 Mg Patch.24 Hr) 1 patch DAILY T-DERMAL 07/17/16 09:00 07/22/16 08:46 Lorazepam (Ativan) 2 mg Q2H PRN PO CIWA 11-14 07/16/16 16:00 07/18/16 20:54 Miscellaneous Information 1 DAILY T-DERMAL 07/17/16 09:00 07/22/16 08:46 Thiamine HCl (Vitamin B1) 100 mg DAILY PO 07/17/16 09:00 07/22/16 08:46 Folic Acid (Folate) 1 mg DAILY PO 07/17/16 09:00 07/22/16 08:46 Amitriptyline HCl (Elavil) 25 mg HS PO 07/16/16 21:00 07/21/16 22:36 Hydroxyurea (Hydrea) 500 mg TID PO 07/16/16 18:00 07/22/16 09:00 Multivitamins (Theragran) 1 tab DAILY PO 07/17/16 09:00 07/22/16 08:46 Ondansetron HCl (Zofran Odt) 4 mg Q8HR PRN SL Nausea/Vomiting 07/16/16 16:00 07/21/16 08:01 Quetiapine Fumarate (SEROquel) 100 mg BID PO 07/17/16 12:00 07/22/16 08:46 Trazodone HCl (Desyrel) 100 mg HS PO 07/17/16 21:00 07/21/16 20:25 Naproxen (Naprosyn) 500 mg Q12HR PO 07/18/16 21:45 07/22/16 08:46 Pantoprazole Sodium 20 mg 20 mg DAILY PO 07/19/16 09:00 07/22/16 08:46 Sodium Chloride (NS 1000 ml Inj) 1,000 ml @ 125 mls/hr Q8H IV 07/20/16 09:00 07/22/16 09:25 Acetaminophen/ Hydrocodone Bitart ([place] 10-325 Mg) 1 tab Q4H PRN PO PAIN SCALE 5 TO 10 07/20/16 11:15 07/21/16 20:26 Morphine Sulfate (Morphine Inj) 2 mg Q3H PRN IV PUSH BREAKTHROUGH PAIN 07/20/16 11:15 07/22/16 07:51 Docusate Sodium (Colace) 100 mg BID PO 07/20/16 13:30 07/22/16 08:46 Promethazine HCl (Phenergan Inj) 12.5 mg Q6H PRN IV-CENTRAL nausea 07/21/16 14:30 07/22/16 07:52 Objective Remarks GENERAL: Middle aged male, lying in bed, sleeping on approach. SKIN: Warm and dry. HEAD: Normocephalic. EYES: No injection or drainage. NECK: Supple, trachea midline. CARDIOVASCULAR: Regular rate and rhythm RESPIRATORY: Breath sounds equal bilaterally. No accessory muscle use. GASTROINTESTINAL: Abdomen soft, non-tender, nondistended. EXTREMITIES: No cyanosis. NEUROLOGICAL: awake and alert,normal speech. moving all extremities. Assessment/Plan Problem List: (1) Sickle cell anemia Status: Chronic Plan: --hgb 6.6 today, agree with 1 unit pRBC transfusion. monitor pain symptoms. --IVF, pain management, Hydrea Assessment 46y/o male with sickle cell disease, admitted to psychiatry for depression. Hematology following for assistance with sickle cell disease/anemia. h/o Depression. Sickle-cell disease with multiple vaso-occlusive pain crises. CVA with left-sided residual weakness. priapism. asthma. Plan 1. continue supportive care with IVF, hydrea, pain management 2. agree with 1 unit pRBC transfusion today. Tonya Crandall Jul 22, 2016 13:33
[2016-07-22] MEDS: ACETAMINOPHEN/HYDROcodone 325 MG/10 MG TAB PO PRN ×2 (14:24→22:11)
[2016-07-22 18:36] LABS: HEMATOCRIT 22.9 % (39.0-51.0); MEAN CELL VOLUME 86.3 FL (80.0-100.0); MEAN CORPUSCULAR HEMOGLOBIN 29.6 PG (27.0-34.0); MEAN CORPUSCULAR HGB CONC 34.3 % (32.0-36.0); PLATELET COUNT 290 TH/MM3 (150-450); RED BLOOD COUNT 2.66 MIL/MM3 (4.50-5.90); RED CELL DISTRIBUTION WIDTH 20.9 % (11.6-17.2); WHITE BLOOD COUNT 11.4 TH/MM3 (4.0-11.0)
[2016-07-22 18:37] LABS: REVIEW FLAG FINAL
[2016-07-22] MEDS: traZODone HCL 100 MG TAB PO SCH (20:22)
[2016-07-22] MEDS: AMITRIPTYLINE HCL 25 MG TAB PO SCH (20:22)
[2016-07-23] MEDS: MORPHINE SULFATE 4 MG/ML INJ IV PUSH PRN ×6 (01:02→21:25)
[2016-07-23] MEDS: SODIUM CHLOR 0.9% 1000 ML INJ 1,000 ML IV SCH ×3 (01:02→21:29)
[2016-07-23 05:05] LABS: HEMATOCRIT 21.4 % (39.0-51.0); MEAN CELL VOLUME 86.5 FL (80.0-100.0); MEAN CORPUSCULAR HEMOGLOBIN 29.8 PG (27.0-34.0); MEAN CORPUSCULAR HGB CONC 34.4 % (32.0-36.0); PLATELET COUNT 284 TH/MM3 (150-450); RED BLOOD COUNT 2.47 MIL/MM3 (4.50-5.90); RED CELL DISTRIBUTION WIDTH 21.4 % (11.6-17.2); WHITE BLOOD COUNT 10.1 TH/MM3 (4.0-11.0)
[2016-07-23 05:50] VITALS: BP 108/59; PULSE 60; RESP 16; TEMP 98.2; O2SAT 94
[2016-07-23 06:10] LABS: REVIEW FLAG FINAL
[2016-07-23] MEDS: MULTIVITAMIN TAB PO SCH (07:52)
[2016-07-23] MEDS: DOCUSATE SODIUM 100 MG CAP PO SCH ×2 (07:52→21:30)
[2016-07-23] MEDS: ACETAMINOPHEN/HYDROcodone 325 MG/10 MG TAB PO PRN ×2 (07:52→14:39)
[2016-07-23] MEDS: FOLIC ACID 1 MG TAB PO SCH (07:52)
[2016-07-23] MEDS: THIAMINE HCL 100 MG TAB PO SCH (07:52)
[2016-07-23] MEDS: PANTOPRAZOLE SOD 20 MG DELAYED RELEASE TAB PO SCH (07:52)
[2016-07-23] MEDS: NAPROXEN 500 MG TAB PO SCH ×2 (07:52→21:30)
[2016-07-23] MEDS: QUEtiapine FUMARATE 100 MG TAB PO SCH ×2 (07:52→21:30)
[2016-07-23] MEDS: PROMETHAZINE INJ 25 MG/ML VIAL IV-CENTRAL PRN ×2 (07:53→17:09)
[2016-07-23] MEDS: NICOTINE 21 MG/24 HR PATCH T-DERMAL SCH (07:53)
[2016-07-23] MEDS: REMOVE OLD PATCH T-DERMAL SCH (07:53)
[2016-07-23] MEDS: HYDROXYUREA 500 MG CAP PO SCH ×3 (09:39→17:51)
--- NOTE | 2016-07-23 13:49 | HHI.PYPN ---
Subjective Remarks Patient seen today for evaluation, he is calm and cooperative, he complains of episodic generalized pain his body, he had a hard time last night with pain, myalgias, was difficult to sleep. He feels weak, but denies depressive symptoms , his mood is 8/10, denies suicidal or homicidal ideation, denies visual and auditory hallucinations. Review of Systems Constitutional: COMPLAINS OF: Fatigue, DENIES: Diaphoretic episodes, Fever, Weight gain, Weight loss, Chills, Dizziness, Change in appetite, Night Sweats Endocrine: DENIES: Heat/cold intolerance, Polydipsia, Polyuria, Polyphagia Ears, nose, mouth, throat: DENIES: Tinnitus, Hearing loss, Vertigo, Nasal discharge, Oral lesions, Throat pain, Hoarseness, Ear Pain, Running Nose, Epistaxis, Sinus Pain, Toothache, Odynophagia Respiratory: COMPLAINS OF: Shortness of breath, DENIES: Apneas, Cough, Snoring , Wheezing, Hemoptysis, Sputum production Cardiovascular: DENIES: Chest pain, Palpitations, Syncope, Dyspnea on Exertion , PND, Lower Extremity Edema, Orthopnea, Claudication Gastrointestinal: DENIES: Abdominal pain, Black stools, Bloody stools, Constipation, Diarrhea, Nausea, Vomiting, Difficulty Swallowing, Anorexia Musculoskeletal: COMPLAINS OF: Muscle aches, Back pain Integumentary: DENIES: Abnormal pigmentation, Nail changes, Pruritus, Rash Hematologic/lymphatic: DENIES: Bruising, Lymphadenopathy Immunologic/allergic: DENIES: Eczema, Urticaria Neurologic: DENIES: Abnormal gait, Headache, Localized weakness, Paresthesias, Seizures, Speech Problems, Tremor, Poor Balance Psychiatric: DENIES: Anxiety, Confusion, Mood changes, Depression, Hallucinations, Agitation, Suicidal Ideation, Homicidal Ideation, Delusions Objective Alert: Yes [place]: Person, Place, Date, Situation Mood: Calm, Depressed Affect: Euthymic Memory Intact: Immediate, Recent (mildly impaired), Remote Hallucinations: Other (he denies visual and auditory hallucinations today) Delusions: Yes Delusion Type: Other (no delusions elicited) Suicidal: Ideation (he denies) Homicidal: Ideation (denies) Insight/Judgement Good Labs Test 07/22/16 07/23/16 18:20 04:44 White Blood Count 11.4 TH/MM3 10.1 TH/MM3 Red Blood Count 2.66 MIL/MM3 2.47 MIL/MM3 Hemoglobin 7.9 GM/DL 7.4 GM/DL Hematocrit 22.9 % 21.4 % Mean Corpuscular Volume 86.3 FL 86.5 FL Mean Corpuscular Hemoglobin 29.6 PG 29.8 PG Mean Corpuscular Hemoglobin 34.3 % 34.4 % Concent Red Cell Distribution Width 20.9 % 21.4 % Platelet Count 290 TH/MM3 284 TH/MM3 Mean Platelet Volume 8.4 FL 8.3 FL Vitals/IOs Vital Signs Date Time Temp Pulse Resp B/P Pulse Ox O2 Delivery O2 Flow Rate FiO2 07/23/16 05:50 98.2 60 16 108/59 94 07/21/16 08:27 21 Intake and Output 07/22/16 07/22/16 07/23/16 08:00 16:00 00:00 Intake Total 2984 ml 2590 ml Output Total 1600 ml Balance 2984 ml 990 ml Assessment & Plan Problem List: (1) Major depressive disorder Assessment & Plan: Patient continues was stable mood, denies suicidal or homicidal ideation, denies visual and auditory hallucinations. Still presenting cycle cell anemia crisis, myalgias, malaise and fatigue. He also reports difficulty sleeping last night. We will increase Elavil to 50 mg to help with sleep and pain. ICD Code: F32.9 (2) Polysubstance dependence ICD Code: F19.20 Assessment & Plan Estimated LOS: days Justification for Cont. Inpt. Coordination a safe discharge and psychiatric and medical stabilization needed Request HC Surrog/Guard Advoc?: No Problem Qualifiers (1) Major depressive disorder: Qualified Code: F33.41 - Recurrent major depressive disorder, in partial remission Leandro Gerber MD Jul 23, 2016 13:49
--- NOTE | 2016-07-23 16:17 | HHI.PR ---
Subjective Remarks Follow up visit sickle cell crisis, anemia, pain. Pt. seen today. Pain not as bad today improved with medication. Hemoglobin 7.4 today. IVF hydration continues. Denies SOB/ dyspnea, fevers, chills, chest pain, n/v/d. Objective Vitals Vital Signs Date Time Temp Pulse Resp B/P Pulse Ox O2 Delivery O2 Flow Rate FiO2 07/23/16 05:50 98.2 60 16 108/59 94 07/23/16 04:59 18 07/22/16 23:11 18 07/22/16 18:00 98.6 67 18 119/59 96 07/22/16 17:01 98.5 63 16 113/52 95 I/O 07/22/16 07/22/16 07/22/16 07/23/16 07/23/16 07/23/16 07:00 15:00 23:00 07:00 15:00 23:00 Intake Total 2984 ml 1990 ml 2634 ml 2320 ml Output Total 1600 ml 1 ml Balance 2984 ml 390 ml 2633 ml 2320 ml Intake Oral 240 ml 240 ml 1320 ml 2320 ml IV Total 2744 ml 1750 ml 1314 ml Output Urine Total 1600 ml Stool Total 1 ml # Voids 3 8 3 # Bowel Movements 0 1 Result Diagram: 07/23/16 0444 07/22/16 0650 Objective Remarks GENERAL: This is a thinly appearing, well-developed patient, in no apparent distress. SKIN: No rashes, ecchymoses or lesions. Cool and dry. HEAD: Atraumatic. Normocephalic. No temporal or scalp tenderness. EYES: Pupils equal round and reactive. Scleral icterus present Bilat. No injection or drainage. ENT: Nose without bleeding. Airway patent. NECK: Trachea midline. No JVD or lymphadenopathy. CARDIOVASCULAR: Regular rate and rhythm without murmurs, gallops, or rubs. Chest painful to palpation. RESPIRATORY: Clear to auscultation. Breath sounds equal bilaterally. No wheezes , rales, or rhonchi. GASTROINTESTINAL: Abdomen soft, tender to palpate, nondistended. Bowel Sounds active 4. MUSCULOSKELETAL: Extremities without clubbing, cyanosis, or edema. Left-sided weakness. Joints tender to palpation. NEUROLOGICAL: Alert and awake. Follows commands. Normal speech. 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 He is now admitted to inpatient psychiatric unit for further evaluation. Consulted for medical management. Major depressive disorder, polysubstance abuse, suicidal ideation - management by psychiatry team Alcohol abuse - [facility] protocol in place - Folic acid, multivitamins. Thiamine Cocaine use - counselled. If elevated BP monitor BB use. Tobacco use - nicotine patch Substance abuse - patient was counseled. Discussed cocaine use with prior history of CVA. GERD - continue pantoprazole Sickle cell anemia - - Encourage fluid hydration. - H&H 7.4/21.4. - S/P 1 unit packed red blood cells 07/22/2016 - Recheck CBC in a.m. Sickle cell crisis - - Pain management - Decrease IVF. -Also followed by hematology, input appreciated. Low TSH - T4 0.90 - Euthyroid sick syndrome. Pt. on sickle crisis with hemolytic anemia. - Reassess after recovering from illness. HTN - patient previously on clonidine 0.3mg twice a day, however BP has been noted to be low, heart rate in the 50s - clonidine 0.1 mg when necessary for now - Monitor BP trend DVT prop - encourage early ambulation Discussed with patient, nursing Written by Savannah Plummer, acting as scribe for Dr. Roland on 07/23/16 at 11:57. Attending Statement The documentation accurately reflects the work performed [id number] by me on at 11:57. Problem Qualifiers (1) Major depressive disorder: Qualified Code: F33.41 - Recurrent major depressive disorder, in partial remission Savannah Plummer Jul 23, 2016 16:17 Dionicio Christopher MD Aug 10, 2016 10:22
[2016-07-23 19:18] VITALS: BP 138/62; PULSE 80; RESP 16; TEMP 98.3; O2SAT 94
[2016-07-23] MEDS: traZODone HCL 100 MG TAB PO SCH (21:30)
[2016-07-23] MEDS: AMITRIPTYLINE HCL 25 MG TAB PO SCH (21:30)
[2016-07-24] MEDS: MORPHINE SULFATE 4 MG/ML INJ IV PUSH PRN ×4 (05:14→20:26)
[2016-07-24 05:48] VITALS: BP 101/51; PULSE 65; RESP 17; TEMP 98.9; O2SAT 96
[2016-07-24 07:15] LABS: RETIC % 4.1 % (0.4-3.0)
[2016-07-24 07:16] LABS: HEMATOCRIT 21.5 % (39.0-51.0); MEAN CORPUSCULAR HEMOGLOBIN 29.1 PG (27.0-34.0); MEAN CORPUSCULAR HGB CONC 33.4 % (32.0-36.0); PLATELET COUNT 324 TH/MM3 (150-450); RED BLOOD COUNT 2.47 MIL/MM3 (4.50-5.90); RED CELL DISTRIBUTION WIDTH 21.6 % (11.6-17.2); WHITE BLOOD COUNT 10.1 TH/MM3 (4.0-11.0)
[2016-07-24 07:23] LABS: REVIEW FLAG FINAL
[2016-07-24 07:28] LABS: REVIEW FLAG FINAL
[2016-07-24] MEDS: ONDANSETRON ODT 4 MG TAB SL PRN (08:20)
[2016-07-24] MEDS: REMOVE OLD PATCH T-DERMAL SCH (09:00)
[2016-07-24] MEDS: MULTIVITAMIN TAB PO SCH (09:14)
[2016-07-24] MEDS: NICOTINE 21 MG/24 HR PATCH T-DERMAL SCH (09:14)
[2016-07-24] MEDS: QUEtiapine FUMARATE 100 MG TAB PO SCH ×2 (09:14→20:26)
[2016-07-24] MEDS: DOCUSATE SODIUM 100 MG CAP PO SCH ×2 (09:14→20:25)
[2016-07-24] MEDS: PANTOPRAZOLE SOD 20 MG DELAYED RELEASE TAB PO SCH (09:14)
[2016-07-24] MEDS: THIAMINE HCL 100 MG TAB PO SCH (09:14)
[2016-07-24] MEDS: FOLIC ACID 1 MG TAB PO SCH (09:14)
[2016-07-24] MEDS: NAPROXEN 500 MG TAB PO SCH ×2 (09:15→20:25)
[2016-07-24] MEDS: SODIUM CHLOR 0.9% 1000 ML INJ 1,000 ML IV SCH ×2 (09:16→18:32)
[2016-07-24] MEDS: HYDROXYUREA 500 MG CAP PO SCH ×3 (09:55→17:25)
--- NOTE | 2016-07-24 11:35 | HHI.PYPN ---
Subjective Remarks On psychiatric evaluation today the patient continues to show significant improvement in his mood, he described his mood as "very good", he denies depressive symptoms, denies anhedonia, denies hopelessness, denies helplessness , denies worthlessness, he denies suicidal or homicidal ideation. Patient clarifies that he feels very safe in the unit, he lives in by her roommate and staff, he endorses good appetite, his sleep has improved significantly since yesterday. Patient denies visual and auditory hallucinations, no confusion, delirium, agitation, aggressive behavior, paranoia, delusion, medhat been observed or reported. Nurses and the staff, on longitudinal observation, describe a patient that has been usually very calm, cooperative, interacting appropriately with peers and staff, mostly watching TV and eating. Review of Systems Other No significant changes since 07/23/2016 Objective Alert: Yes [place]: Person, Place, Date, Situation Mood: Calm, Depressed Affect: Euthymic Memory Intact: Immediate, Recent (mildly impaired), Remote Hallucinations: Other (he denies visual and auditory hallucinations today) Delusions: Yes Delusion Type: Other (no delusions elicited) Suicidal: Ideation (he denies) Homicidal: Ideation (denies) Insight/Judgement Improved Labs Test 07/24/16 07:00 White Blood Count 10.1 TH/MM3 Red Blood Count 2.47 MIL/MM3 Hemoglobin 7.2 GM/DL Hematocrit 21.5 % Mean Corpuscular Volume 87.0 FL Mean Corpuscular Hemoglobin 29.1 PG Mean Corpuscular Hemoglobin 33.4 % Concent Red Cell Distribution Width 21.6 % Platelet Count 324 TH/MM3 Mean Platelet Volume 7.9 FL Reticulocyte Count 4.1 % Absolute Reticulocyte Count 100.5 MIL/L Lactate Dehydrogenase 408 U/L Vitals/IOs Vital Signs Date Time Temp Pulse Resp B/P Pulse Ox O2 Delivery O2 Flow Rate FiO2 07/24/16 05:48 98.9 65 17 101/51 96 07/21/16 08:27 21 Intake and Output 07/23/16 07/23/16 07/24/16 08:00 16:00 00:00 Intake Total 2034 ml 2320 ml 1320 ml Output Total 1 ml Balance 2033 ml 2320 ml 1320 ml Assessment & Plan Problem List: (1) Major depressive disorder Assessment & Plan: On psychiatric reevaluation today patient continues to show improvement, he denies depressive symptoms, denies anxiety, his sleep and appetite are much improved, denies suicidal or homicidal ideation, denies visual and auditory hallucinations. He has remained interacting appropriately, calm and cooperative in the unit. Compliant with medications. Just pending medical clearance to discharged back home with his sister. Patient is psychiatric is stable at this moment, if for their medical treatment in inpatient basis as needed patient can be transferred to the medical floor. ICD Code: F32.9 (2) Polysubstance dependence ICD Code: F19.20 Assessment & Plan Estimated LOS: days Justification for Cont. Inpt. Pending medical clearance discharged back to his sister house in [place] Request HC Surrog/Guard Advoc?: No Problem Qualifiers (1) Major depressive disorder: Qualified Code: F33.41 - Recurrent major depressive disorder, in partial remission Leandro Gerber MD Jul 24, 2016 11:34
[2016-07-24] MEDS: ACETAMINOPHEN/HYDROcodone 325 MG/10 MG TAB PO PRN ×2 (12:49→17:15)
--- NOTE | 2016-07-24 17:12 | HHI.PR ---
Subjective Remarks patient still c/o of musculoskeletal pain denies cp/sob states left upper extremity is swollen denies fevers/chills Objective Vitals Vital Signs Date Time Temp Pulse Resp B/P Pulse Ox O2 Delivery O2 Flow Rate FiO2 07/24/16 05:48 98.9 65 17 101/51 96 07/24/16 05:19 18 07/23/16 22:30 18 07/23/16 19:18 98.3 80 16 138/62 94 I/O 07/23/16 07/23/16 07/23/16 07/24/16 07/24/16 07/24/16 07:00 15:00 23:00 07:00 15:00 23:00 Intake Total 2634 ml 2320 ml 1320 ml 2306 ml 480 ml Output Total 1 ml Balance 2633 ml 2320 ml 1320 ml 2306 ml 480 ml Intake Oral 1320 ml 2320 ml 1320 ml 720 ml 480 ml IV Total 1314 ml 1586 ml Stool Total 1 ml # Voids 8 3 4 3 3 # Bowel Movements 1 0 0 Result Diagram: 07/24/16 0700 07/22/16 0650 Objective Remarks GENERAL: This is a thinly appearing, well-developed patient, in no apparent distress. SKIN: No rashes, ecchymoses or lesions. Cool and dry. HEAD: Atraumatic. Normocephalic. No temporal or scalp tenderness. EYES: Pupils equal round and reactive. Scleral icterus present Bilat. No injection or drainage. ENT: Nose without bleeding. Airway patent. NECK: Trachea midline. No JVD or lymphadenopathy. CARDIOVASCULAR: Regular rate and rhythm without murmurs, gallops, or rubs. Chest painful to palpation. RESPIRATORY: Clear to auscultation. Breath sounds equal bilaterally. No wheezes , rales, or rhonchi. GASTROINTESTINAL: Abdomen soft, tender to palpate, nondistended. Bowel Sounds active 4. MUSCULOSKELETAL: Extremities without clubbing, cyanosis. There is left hemiplegia. Left upper extremity looks swollen but no erythema. Good radial pulses bilaterally. NEUROLOGICAL: Alert and awake. Follows commands. Normal speech. Medications and IVs Current Medications Medications (Trade) Dose Ordered Sig/John Route Start Time Stop Time Status Last Admin (Heparin Central Flush) 500 units UNSCH IVF 07/16/16 15:15 07/20/16 10:01 (NS Flush) 5 ml UNSCH PRN IVF 07/16/16 15:15 07/20/16 10:01 (Benadryl) 50 mg HS PRN PO 07/16/16 21:00 07/20/16 21:05 (Tylenol) 650 mg Q4H PRN PO 07/16/16 16:00 07/19/16 19:50 (Milk Of Magnesia Liq) 30 ml DAILY PRN PO 07/16/16 16:00 (Mag-Al Plus Susp Liq) 30 ml Q6H PRN PO 07/16/16 16:00 (Habitrol 21 Mg Patch.24 Hr) 1 patch DAILY T-DERMAL 07/17/16 09:00 07/24/16 09:14 (Cogentin) 1 mg Q12H PRN PO 07/16/16 16:00 (Cogentin Inj) 1 mg Q12H PRN IM 07/16/16 16:00 (Ativan) 1 mg Q4H PRN PO 07/16/16 16:00 (Ativan Inj) 1 mg Q4H PRN IM 07/16/16 16:00 (Ativan) 2 mg Q2H PRN PO 07/16/16 16:00 07/18/16 20:54 (Ativan Inj) 2 mg Q2H PRN IM 07/16/16 16:00 (Ativan Inj) 2 mg Q1H PRN IM 07/16/16 16:00 (Ativan Inj) 2 mg Q15M PRN IM 07/16/16 16:00 Miscellaneous Information 1 DAILY T-DERMAL 07/17/16 09:00 07/24/16 09:00 (Vitamin B1) 100 mg DAILY PO 07/17/16 09:00 07/24/16 09:14 (Folate) 1 mg DAILY PO 07/17/16 09:00 07/24/16 09:14 (Proair Hfa Inh) 2 puff Q4H PRN INH 07/16/16 16:00 (Hydrea) 500 mg TID PO 07/16/16 18:00 07/24/16 17:25 (Theragran) 1 tab DAILY PO 07/17/16 09:00 07/24/16 09:14 (Zofran Odt) 4 mg Q8HR PRN SL 07/16/16 16:00 07/24/16 08:20 (Catapres) 0.1 mg Q8HR PRN PO 07/16/16 16:00 (SEROquel) 100 mg BID PO 07/17/16 12:00 07/24/16 09:14 (Desyrel) 100 mg HS PO 07/17/16 21:00 07/23/16 21:30 (Naprosyn) 500 mg Q12HR PO 07/18/16 21:45 07/24/16 09:15 Pantoprazole Sodium 20 mg 20 mg DAILY PO 07/19/16 09:00 07/24/16 09:14 (NS 1000 ml Inj) 1,000 ml @ 100 mls/hr Q10H IV 07/20/16 09:00 07/24/16 18:32 (Brohman 5-325 Mg) 1 tab Q4H PRN PO 07/20/16 11:15 (Brohman 10-325 Mg) 1 tab Q4H PRN PO 07/20/16 11:15 07/24/16 17:15 (Morphine Inj) 2 mg Q3H PRN IV PUSH 07/20/16 11:15 07/24/16 15:22 (Colace) 100 mg BID PO 07/20/16 13:30 07/24/16 09:14 (Phenergan Inj) 12.5 mg Q6H PRN IV-CENTRAL 07/21/16 14:30 07/23/16 17:09 (Elavil) 50 mg HS PO 07/23/16 21:00 07/23/16 21:30 Urinary Catheter: No Vascular Central Line Catheter: No A/P Problem List: (1) Polysubstance dependence ICD Code: F19.20 Status: Acute (2) Major depressive disorder ICD Code: F32.9 Status: Acute (3) Sickle cell pain crisis ICD Code: D57.00 Status: Acute (4) Hypertension ICD Code: I10 Status: Chronic Assessment and Plan Patient is a 46-year-old male who came in to the 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 He is now admitted to inpatient psychiatric unit for further evaluation. Consulted for medical management. Major depressive disorder, polysubstance abuse, suicidal ideation - management by psychiatry team Alcohol abuse - [facility] protocol in place - Resolved - Folic acid, multivitamins. Thiamine - No signs of alcohol withdrawal - Last Ativan dose 1/6 Cocaine use - counselled. If elevated BP. Avoid beta blockers. Tobacco use - nicotine patch Substance abuse - patient was counseled. Discussed cocaine use with prior history of CVA. GERD - continue pantoprazole Sickle cell anemia - - Encourage fluid hydration. - H&H 7.2/21.5 - S/P 2 transfusion of 2 units prbc - Recheck CBC in a.m. - Transfuse if hemoglobin <7 or if symptomatic. Sickle cell crisis - - Pain management - Decrease IVF. -Management as per hematology. Low TSH - T4 0.90 - Euthyroid sick syndrome. Pt. on sickle crisis with hemolytic anemia. - Reassess after recovering from illness. HTN - patient previously on clonidine 0.3mg twice a day, however BP has been noted to be low, heart rate in the 50s - clonidine 0.1 mg when necessary for now - Monitor BP trend - BP stable. DVT prop - encourage early ambulation Problem Qualifiers (1) Major depressive disorder: Qualified Code: F33.41 - Recurrent major depressive disorder, in partial remission Dionicio Christopher MD Jul 24, 2016 17:12
[2016-07-24 18:03] VITALS: BP 104/49; PULSE 69; RESP 18; TEMP 97.8
[2016-07-24] MEDS: traZODone HCL 100 MG TAB PO SCH (20:25)
[2016-07-24] MEDS: AMITRIPTYLINE HCL 25 MG TAB PO SCH (20:25)
[2016-07-25] MEDS: MORPHINE SULFATE 4 MG/ML INJ IV PUSH PRN ×5 (01:45→22:11)
[2016-07-25] MEDS: ACETAMINOPHEN/HYDROcodone 325 MG/10 MG TAB PO PRN ×3 (04:33→15:30)
[2016-07-25] MEDS: SODIUM CHLOR 0.9% 1000 ML INJ 1,000 ML IV SCH ×2 (05:16→15:16)
[2016-07-25 06:28] VITALS: BP 102/57; PULSE 54; RESP 16; TEMP 98.1; O2SAT 94
[2016-07-25] MEDS: REMOVE OLD PATCH T-DERMAL SCH (09:00)
--- NOTE | 2016-07-25 09:37 | HHI.DS ---
Psychiatry Discharge Summary Inpatient Psychiatric care?: No Advance Directive: No Reason Not Provided: refused Mental Health AdvanceDirective: No Health Care Proxy: No Admission Admission Date Jul 16, 2016 at 15:54 Admission Diagnosis: (1) Polysubstance dependence ICD Code: F19.20 (2) Major depressive disorder, recurrent, severe with psychotic features ICD Code: F33.3 Brief History Mr. Henderson is a 46-year-old male with a reported history of depression and substance use issues who presents under a Brewer act from [place] [employer] alleging that the patient said that he was having family issues and called 911 saying that he was going to kill himself with a knife. Reviewing the electronic medical record, I note that I saw the patient in consultation back in February of last year and the patient was admitted most recently here under Dr. Durant in July 2015. Patient seen and examined. Case discussed with nurse in the J-pod. On my examination today, the patient is clinically sober. He says that he has been feeling increasingly depressed over weeks with associated sleep and appetite disturbance. He endorses hopeless and worthless feelings. He endorses suicidal ideations, although he notes that these are more acute when he is intoxicated. No specific plan or intent at this time. He can generate no reason to live. He denies any current AVH but says that he experiences hallucinations "now and then." He cannot describe these in any detail. No delusions. No manic or hypomanic symptoms noted. The remainder of the psychiatric ROS is negative. Past psychiatric history: Includes a history of depression and substance use. He is not presently under the care of a psychiatrist. His most recent admission was under Dr. Durant as I said and he reports that he has had multiple prior psychiatric admissions. He does deny a history of suicide attempts. Patient reports a previous good response to Elavil. Tobacco Use In Past 30 Days: 5 or More Cigarettes/Day Alcohol Use: 2-3 Times Per Week Hospital Course The patient is a 46-year-old male with a reported history of depression and substance use issues who presents under a Brewer act from [place] [employer] alleging that the patient said that he was having family issues and called 911 saying that he was going to kill himself with a knife. Reviewing the electronic medical record, I note that I saw the patient in consultation back in February of last year and the patient was admitted most recently here under Dr. Durant in July 2015. Patient was admitted initially irregular psychiatry but transferred to the med psych unit due to decompensation of his cycle cell anemia. In the med psych unit patient has been mostly calm, cooperative, no episodes of agitation or aggressive behavior has been reported, since he arrived to the unit he hasn't endorsed any suicidal , homicidal ideation, visual or auditory hallucinations, he has been in a good mood, with good appetite, complaining often of pain in his joints and poor sleep at night. He psychiatric medication were adjusted, especially amitriptyline was increased to 50 mg to help with the pain and to help with sleep. Hospitalist has been follow-up every day very close and is at this point patient needs to continue under medical care, the patient is psychiatrically stable to be transferred to the medical floor in his current psychotropic regimen. During this hospitalization we contacted patient's sister in [place] who confirmed that patient can be discharged safely to her house once he is discharged. Patient interacted appropriately with staff, he was responsive to psychotropics, psychotherapy, milieu therapy and did not report any side effects. Results Blood Pressure 102 / 57 Vital Signs Date Time Temp Pulse Resp B/P Pulse Ox O2 Delivery O2 Flow Rate FiO2 07/25/16 06:28 98.1 54 16 102/57 94 07/21/16 08:27 21 Laboratory Tests Test 07/22/16 07/23/16 07/24/16 18:20 04:44 07:00 White Blood Count 11.4 TH/MM3 (4.0-11.0) Red Blood Count 2.66 MIL/MM3 2.47 MIL/MM3 2.47 MIL/MM3 (4.50-5.90) (4.50-5.90) (4.50-5.90) Hemoglobin 7.9 GM/DL 7.4 GM/DL 7.2 GM/DL (13.0-17.0) (13.0-17.0) (13.0-17.0) Hematocrit 22.9 % 21.4 % 21.5 % (39.0-51.0) (39.0-51.0) (39.0-51.0) Red Cell Distribution Width 20.9 % 21.4 % 21.6 % (11.6-17.2) (11.6-17.2) (11.6-17.2) Reticulocyte Count 4.1 % (0.4-3.0) Lactate Dehydrogenase 408 U/L (87-241) Laboratory Results Test 07/17/16 07:12 Hemoglobin A1c % (4.3-6.0) Triglycerides Level 79 MG/DL (42-150) Cholesterol Level 157 MG/DL (120-200) LDL Cholesterol 66 MG/DL (0-99) HDL Cholesterol 75.5 MG/DL (40.0-60.0) Summary of Procedures No procedures done Pending results at discharge: No Medications # of Antipsychotic meds at D/C: 1 Approp Antipsych med options 1 - Minimum of three failed multiple trials of monotherapy. 2 - Documented plan to taper to monotherapy due to previous use of multiple meds OR cross-taper in progress at D/C. 3 - Documentation of augmentation of Clozapine. 4 - Justification other than those listed in allowable values 1-3, document here : Discharge Discharge Date: Jul 25, 2016 Discharge Diagnosis: (1) Polysubstance dependence ICD Code: F19.20 Mental Status Exam at Disch man, who seems to be acutely, chronically ill, skinny, for hygiene, he is calm and cooperative, his his speech is fluent and spontaneous, his mood is described as fine, affect is euthymic, thought processes logical and relevant, thought content devoid of SI, HI, VH, AH, no paranoia or delusions observed, his insight is good, impulse control is very good, judgment is improved, cognition is intact. Pt Condition on Discharge: Stable Discharge Disposition: Trnsfr to Other Facility Discharge Instructions Diet Instructions: As Tolerated, No Restrictions Activities you can perform: Regular-No Restrictions Discharge Time > 30 minutes Discharge/Advance Care Plan Health Problems: (1) Major depressive disorder (2) Polysubstance dependence Goals to promote your health * To prevent worsening of your condition and complications * To maintain your health at the optimal level Directions to meet your goals Take your medications as prescribed Follow your dietary instruction Follow activity as directed Keep your appointments as scheduled Take your immunizations and boosters as scheduled If your symptoms worsen call your PCP, if no PCP go to Urgent Care Center or Emergency Room For 02/02 questions related to your inpatient stay or results of tests pending at discharge, please contact Dr. Leandro Gerber at Smoking is Dangerous to Your Health. Avoid second hand smoking Leandro Gerber MD Jul 25, 2016 09:37
[2016-07-25] MEDS: FOLIC ACID 1 MG TAB PO SCH (09:53)
[2016-07-25] MEDS: NICOTINE 21 MG/24 HR PATCH T-DERMAL SCH (09:53)
[2016-07-25] MEDS: QUEtiapine FUMARATE 100 MG TAB PO SCH ×2 (09:54→20:04)
[2016-07-25] MEDS: NAPROXEN 500 MG TAB PO SCH ×2 (09:54→20:03)
[2016-07-25] MEDS: PANTOPRAZOLE SOD 20 MG DELAYED RELEASE TAB PO SCH (09:54)
[2016-07-25] MEDS: DOCUSATE SODIUM 100 MG CAP PO SCH ×2 (09:54→20:03)
[2016-07-25] MEDS: MULTIVITAMIN TAB PO SCH (09:54)
[2016-07-25] MEDS: THIAMINE HCL 100 MG TAB PO SCH (09:54)
[2016-07-25] MEDS: HYDROXYUREA 500 MG CAP PO SCH ×3 (09:57→18:48)
[2016-07-25 10:40] LABS: AUTOMATED NEUTROPHIL # 7.6 TH/MM3 (1.8-7.7); BASOPHIL # 0.1 TH/MM3 (0-0.2); BASOPHIL % 0.7 % (0.0-2.0); EOSINOPHIL # 0.3 TH/MM3 (0-0.4); EOSINOPHIL % 3.1 % (0.0-4.0); LYMPH % 13.5 % (9.0-44.0); LYMPHOCYTE # 1.3 TH/MM3 (1.0-4.8); MEAN CELL VOLUME 87.5 FL (80.0-100.0); MEAN CORPUSCULAR HEMOGLOBIN 30.1 PG (27.0-34.0); MEAN CORPUSCULAR HGB CONC 34.4 % (32.0-36.0); NEUT % 79.7 % (16.0-70.0); PLATELET COUNT 307 TH/MM3 (150-450); RED BLOOD COUNT 2.29 MIL/MM3 (4.50-5.90); RED CELL DISTRIBUTION WIDTH 21.8 % (11.6-17.2); RETIC % 4.8 % (0.4-3.0); WHITE BLOOD COUNT 9.6 TH/MM3 (4.0-11.0)
[2016-07-25 10:57] LABS: HEMO FLAGS AUTO DIFF; REVIEW FLAG FINAL
[2016-07-25 10:59] LABS: ALT (GPT) 51 U/L (12-78); ANION GAP 6 MEQ/L (5-15); AST (GOT) 48 U/L (15-37); BICARBONATE 25.9 MEQ/L (21.0-32.0); BLOOD UREA NITROGEN 8 MG/DL (7-18); CHLORIDE 108 MEQ/L (98-107); GLOMERULAR FILTRATION RATE 184 ML/MIN (>89); POTASSIUM 3.9 MEQ/L (3.5-5.1); SODIUM (NA) 140 MEQ/L (136-145)
[2016-07-25 11:02] LABS: ALKALINE PHOSPHATASE 76 U/L (45-117); LDH SERUM 405 U/L (87-241); TOTAL BILIRUBIN ADULT 1.5 MG/DL (0.2-1.0)
[2016-07-25 11:32] LABS: PLATELET ESTIMATE SMEAR NORMAL (NORMAL); SCAN/DIFF AUTO DIFF CONFIRMED
[2016-07-25 11:33] LABS: HYPERSEGMENTED POLYS 1+ (NORMAL); PLATELET MORPHOLOGY NORMAL (NORMAL)
[2016-07-25 11:34] LABS: ACANTHOCYTES 1+ (NORMAL); KERATOCYTES 1+ (NORMAL); SICKLE CELLS 1+ (NORMAL); TARGET CELLS 1+ (NORMAL)
[2016-07-25 11:35] LABS: TEARDROP RBCS 1+ (NORMAL)
[2016-07-25 11:36] VITALS: BP 109/55; PULSE 64; RESP 16; TEMP 98.4; O2SAT 95
--- NOTE | 2016-07-25 12:37 | PD.ONC.PN ---
Subjective Subjective Remarks Afebrile overnight. Patient resting comfortably without complaint. He tells me he wants to go home as soon as possible. He still has some pain in his joints, but states he can manage that at home. Objective Data Date Time Temp Pulse Resp B/P Pulse Ox O2 Delivery O2 Flow Rate FiO2 07/25/16 11:36 98.4 64 16 109/55 95 07/25/16 06:28 98.1 54 16 102/57 94 07/24/16 18:03 97.8 69 18 104/49 07/25/16 07/25/16 07/25/16 07:00 15:00 23:00 Intake Total 1859 ml 420 ml Output Total 1050 ml Balance 809 ml 420 ml Result Diagram: 07/25/1648 07/25/16947 Laboratory Results Laboratory Tests Test 07/25/16 09:48 White Blood Count 9.6 TH/MM3 Red Blood Count 2.29 MIL/MM3 Hemoglobin 6.9 GM/DL Hematocrit 20.0 % Mean Corpuscular Volume 87.5 FL Mean Corpuscular Hemoglobin 30.1 PG Mean Corpuscular Hemoglobin 34.4 % Concent Red Cell Distribution Width 21.8 % Platelet Count 307 TH/MM3 Mean Platelet Volume 8.2 FL Neutrophils (%) (Auto) 79.7 % Lymphocytes (%) (Auto) 13.5 % Monocytes (%) (Auto) 3.0 % Eosinophils (%) (Auto) 3.1 % Basophils (%) (Auto) 0.7 % Neutrophils # (Auto) 7.6 TH/MM3 Lymphocytes # (Auto) 1.3 TH/MM3 Monocytes # (Auto) 0.3 TH/MM3 Eosinophils # (Auto) 0.3 TH/MM3 Basophils # (Auto) 0.1 TH/MM3 CBC Comment AUTO DIFF Differential Comment AUTO DIFF CONFIRMED Hypersegmented Polys 1+ Platelet Estimate NORMAL Platelet Morphology Comment NORMAL Sickle Cells 1+ Target Cells 1+ Tear Drop Cells 1+ Acanthocytes 1+ Keratocytes 1+ Reticulocyte Count 4.8 % Absolute Reticulocyte Count 109.7 MIL/L Haptoglobin LESS THAN 10 MG/DL Sodium Level 140 MEQ/L Potassium Level 3.9 MEQ/L Chloride Level 108 MEQ/L Carbon Dioxide Level 25.9 MEQ/L Anion Gap 6 MEQ/L Blood Urea Nitrogen 8 MG/DL Creatinine 0.58 MG/DL Estimat Glomerular Filtration 184 ML/MIN Rate Random Glucose 80 MG/DL Calcium Level 8.8 MG/DL Phosphorus Level 3.5 MG/DL Magnesium Level 2.0 MG/DL Total Bilirubin 1.5 MG/DL Aspartate Amino Transf 48 U/L (AST/SGOT) Alanine Aminotransferase 51 U/L (ALT/SGPT) Alkaline Phosphatase 76 U/L Lactate Dehydrogenase 405 U/L Total Protein 6.8 GM/DL Albumin 3.5 GM/DL Administered Medications Medications (Trade) Dose Ordered Sig/John Route PRN Reason Start Time Stop Time Status Last Admin Dose Admin Heparin Sodium (Porcine) (Heparin Central Flush) 500 units UNSCH IVF 07/16/16 15:15 07/20/16 10:01 IV Flush (NS Flush) 5 ml UNSCH PRN IVF SEE PROTOCOL 07/16/16 15:15 07/20/16 10:01 Diphenhydramine HCl (Benadryl) 50 mg HS PRN PO INSOMNIA 07/16/16 21:00 07/20/16 21:05 Acetaminophen (Tylenol) 650 mg Q4H PRN PO Pain 1-5 or Temp >101F 07/16/16 16:00 07/19/16 19:50 Nicotine (Habitrol 21 Mg Patch.24 Hr) 1 patch DAILY T-DERMAL 07/17/16 09:00 07/25/16 09:53 Lorazepam (Ativan) 2 mg Q2H PRN PO CIWA 11-14 07/16/16 16:00 07/18/16 20:54 Miscellaneous Information 1 DAILY T-DERMAL 07/17/16 09:00 07/25/16 09:00 Thiamine HCl (Vitamin B1) 100 mg DAILY PO 07/17/16 09:00 07/25/16 09:54 Folic Acid (Folate) 1 mg DAILY PO 07/17/16 09:00 07/25/16 09:53 Hydroxyurea (Hydrea) 500 mg TID PO 07/16/16 18:00 07/25/16 09:57 Multivitamins (Theragran) 1 tab DAILY PO 07/17/16 09:00 07/25/16 09:54 Ondansetron HCl (Zofran Odt) 4 mg Q8HR PRN SL Nausea/Vomiting 07/16/16 16:00 07/24/16 08:20 Quetiapine Fumarate (SEROquel) 100 mg BID PO 07/17/16 12:00 07/25/16 09:54 Trazodone HCl (Desyrel) 100 mg HS PO 07/17/16 21:00 07/24/16 20:25 Naproxen (Naprosyn) 500 mg Q12HR PO 07/18/16 21:45 07/25/16 09:54 Pantoprazole Sodium 20 mg 20 mg DAILY PO 07/19/16 09:00 07/25/16 09:54 Sodium Chloride (NS 1000 ml Inj) 1,000 ml @ 100 mls/hr Q10H IV 07/20/16 09:00 07/24/16 18:32 Acetaminophen/ Hydrocodone Bitart ([place] 10-325 Mg) 1 tab Q4H PRN PO PAIN SCALE 5 TO 10 07/20/16 11:15 07/25/16 09:53 Morphine Sulfate (Morphine Inj) 2 mg Q3H PRN IV PUSH BREAKTHROUGH PAIN 07/20/16 11:15 07/25/16 11:17 Docusate Sodium (Colace) 100 mg BID PO 07/20/16 13:30 07/25/16 09:54 Promethazine HCl (Phenergan Inj) 12.5 mg Q6H PRN IV-CENTRAL nausea 07/21/16 14:30 07/23/16 17:09 Amitriptyline HCl (Elavil) 50 mg HS PO 07/23/16 21:00 07/24/16 20:25 Objective Remarks GENERAL: Middle aged male, sitting up in chair next to bed [facility]. SKIN: Warm and dry. HEAD: Normocephalic. EYES: No injection or drainage. NECK: Supple, trachea midline. CARDIOVASCULAR: Regular rate and rhythm RESPIRATORY: Breath sounds equal bilaterally. No accessory muscle use. GASTROINTESTINAL: Abdomen soft, non-tender, nondistended. EXTREMITIES: No cyanosis. NEUROLOGICAL: AO x 3. moving extremities. normal speech. Assessment/Plan Problem List: (1) Sickle cell anemia Status: Chronic Plan: --hgb 6.9 today, give 1 unit pRBC, then clear for d/c --IVF, pain management, Hydrea Assessment 46y/o male with sickle cell disease, admitted to psychiatry for depression. Hematology following for assistance with sickle cell disease/anemia. h/o Depression. Sickle-cell disease with multiple vaso-occlusive pain crises. CVA with left-sided residual weakness. priapism. asthma. Plan 1. continue supportive care with IVF, hydrea, pain management 2. 1 unit pRBC transfusion today. 3. clear for d/c from hematology perspective. Tonya Crandall Jul 25, 2016 12:37
[2016-07-25] MEDS ORDERED: SODIUM CHLOR 0.9% 250 ML INJ 250 ML IV ONE (12:45)
[2016-07-25] MEDS ORDERED: ACETAMINOPHEN 325 MG TAB PO PRN (12:45)
[2016-07-25] MEDS ORDERED: TRAZ50TA12 PO (13:02)
[2016-07-25] MEDS ORDERED: QUET1TAB8 PO (13:02)
[2016-07-25] MEDS ORDERED: AMIT1TAB79 PO (13:02)
[2016-07-25] MEDS: ACETAMINOPHEN 325 MG TAB PO PRN (13:51)
--- NOTE | 2016-07-25 14:07 | HHI.PR ---
Subjective Remarks Follow up visit sickle cell crisis, anemia, pain. Pt. seen today. Reports pain is much better today, asking when he can go home. Hemoglobin 6.9 today. IVF hydration continues. Denies SOB/ dyspnea, fevers, chills, chest pain, n/v/ d. Objective Vitals Vital Signs Date Time Temp Pulse Resp B/P Pulse Ox O2 Delivery O2 Flow Rate FiO2 07/25/16 11:36 98.4 64 16 109/55 95 07/25/16 06:28 98.1 54 16 102/57 94 07/24/16 18:03 97.8 69 18 104/49 I/O 07/24/16 07/24/16 07/24/16 07/25/16 07/25/16 07/25/16 07:00 15:00 23:00 07:00 15:00 23:00 Intake Total 2306 ml 3316 ml 1859 ml 660 ml Output Total 1050 ml Balance 2306 ml 3316 ml 809 ml 660 ml Intake Oral 720 ml 1560 ml 1080 ml 660 ml IV Total 1586 ml 1756 ml 779 ml Output Urine Total 1050 ml # Voids 3 5 # Bowel Movements 0 Result Diagram: 07/25/1648 07/25/1648 Objective Remarks GENERAL: This is a thinly appearing, well-developed patient, in no apparent distress. SKIN: No rashes, ecchymoses or lesions. Cool and dry. HEAD: Atraumatic. Normocephalic. No temporal or scalp tenderness. EYES: Pupils equal round and reactive. Scleral icterus present Bilat. No injection or drainage. ENT: Nose without bleeding. Airway patent. NECK: Trachea midline. No JVD or lymphadenopathy. CARDIOVASCULAR: Regular rate and rhythm without murmurs, gallops, or rubs. Chest painful to palpation. RESPIRATORY: Clear to auscultation. Breath sounds equal bilaterally. No wheezes , rales, or rhonchi. GASTROINTESTINAL: Abdomen soft, tender to palpate, nondistended. Bowel Sounds active 4. MUSCULOSKELETAL: Extremities without clubbing, cyanosis, or edema. Left-sided weakness. Joints tender to palpation. NEUROLOGICAL: Alert and awake. Follows commands. Normal speech. A/P Problem List: (1) Polysubstance dependence ICD Code: F19.20 Status: Acute (2) Major depressive disorder ICD Code: F32.9 Status: Acute (3) Sickle cell pain crisis ICD Code: D57.00 Status: Acute (4) Hypertension ICD Code: I10 Status: Chronic Assessment and Plan Patient is a 46-year-old male who came in to the hospital under [place] act from chief of police for 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 He is now admitted to inpatient psychiatric unit for further evaluation. Consulted for medical management. Major depressive disorder, polysubstance abuse, suicidal ideation - management by psychiatry team Alcohol abuse - [facility] protocol in place - Folic acid, multivitamins. Thiamine Cocaine use - counselled. If elevated BP monitor BB use. Tobacco use - nicotine patch Substance abuse - patient was counseled. Discussed cocaine use with prior history of CVA. GERD - continue pantoprazole Sickle cell anemia - - Encourage fluid hydration. - H&H 6.9/ 20.0 -Hematology recommending 1 unit of packed red blood cells today Sickle cell crisis - - Pain management -Also followed by hematology, input appreciated. Low TSH - T4 0.90 - Euthyroid sick syndrome. Pt. on sickle crisis with hemolytic anemia. - Reassess after recovering from illness. HTN - patient previously on clonidine 0.3mg twice a day, however BP has been noted to be low, heart rate in the 50s - clonidine 0.1 mg when necessary for now - Monitor BP trend DVT prop - encourage early ambulation Discussed with patient, nursing Patient improving greatly after he receives his 1 unit of packed red blood cells today cleared for discharge per hospitalist.- Recommend patient follow up with PCP and hematology. Written by Savannah Plummer, acting as scribe for Dr. Roland on 07/25/16 at 11:57. Attending Statement The documentation accurately reflects the work performed [id number] by me on at 11:57. Problem Qualifiers (1) Major depressive disorder: Qualified Code: F33.41 - Recurrent major depressive disorder, in partial remission Savannah Plummer Jul 25, 2016 14:07 Dionicio Christopher MD Aug 13, 2016 21:38
[2016-07-25] MEDS: diphenhydrAMINE HCL 25 MG CAP PO PRN ×2 (14:30→14:39)
[2016-07-25 15:37] VITALS: BP 116/56; PULSE 74; RESP 17; TEMP 98.7; O2SAT 97
[2016-07-25 15:50] VITALS: BP 104/62; PULSE 67; RESP 16; TEMP 98.3; O2SAT 98
[2016-07-25 15:52] VITALS: BP 109/62; PULSE 70; RESP 16; TEMP 98.4; O2SAT 98
[2016-07-25 19:58] VITALS: BP 110/58; PULSE 67; RESP 17; TEMP 98.7; O2SAT 95
[2016-07-25] MEDS: traZODone HCL 100 MG TAB PO SCH (20:02)
[2016-07-25] MEDS: AMITRIPTYLINE HCL 25 MG TAB PO SCH (20:03)
[2016-07-26] MEDS: ACETAMINOPHEN/HYDROcodone 325 MG/10 MG TAB PO PRN ×3 (01:21→12:11)
[2016-07-26] MEDS: SODIUM CHLOR 0.9% 1000 ML INJ 1,000 ML IV SCH (01:23)
[2016-07-26] MEDS: MORPHINE SULFATE 4 MG/ML INJ IV PUSH PRN (03:31)
[2016-07-26 06:30] VITALS: BP 106/63; PULSE 72; RESP 20; TEMP 98.1; O2SAT 94
[2016-07-26 07:07] VITALS: RESP 20
[2016-07-26] MEDS: FOLIC ACID 1 MG TAB PO SCH (08:24)
[2016-07-26] MEDS: DOCUSATE SODIUM 100 MG CAP PO SCH (08:24)
[2016-07-26] MEDS: NAPROXEN 500 MG TAB PO SCH (08:24)
[2016-07-26] MEDS: MULTIVITAMIN TAB PO SCH (08:24)
[2016-07-26] MEDS: THIAMINE HCL 100 MG TAB PO SCH (08:24)
[2016-07-26] MEDS: QUEtiapine FUMARATE 100 MG TAB PO SCH (08:24)
[2016-07-26] MEDS: PANTOPRAZOLE SOD 20 MG DELAYED RELEASE TAB PO SCH (08:24)
[2016-07-26] MEDS: ONDANSETRON ODT 4 MG TAB SL PRN (08:24)
[2016-07-26] MEDS: HYDROXYUREA 500 MG CAP PO SCH ×2 (08:44→12:12)
[2016-07-26] MEDS: REMOVE OLD PATCH T-DERMAL SCH (08:49)
[2016-07-26] MEDS: NICOTINE 21 MG/24 HR PATCH T-DERMAL SCH (08:49)
[2016-07-26] MEDS ORDERED: NORC5TAB PO (12:33)
== END 2016-07-26 14:15 | disposition home or self-care (01) | DRG 885 ==
LOC: NEDAMB 02:30 → NEDA 15:54 → H260 19:30 → H4EA 07-19 17:54
PROVIDERS: ADMIT Psychiatry & Neurology Psychiatry; ATTEND Psychiatry & Neurology Psychiatry
PROC: 30253N1 (ICD-10-PCS; principal; 2016-07-16)
DX: F33.1 Major depressive disorder, recurrent, moderate (principal); D57.00 Hb-SS disease with crisis, unspecified; R45.851 Suicidal ideations; F19.20 Other psychoactive substance dependence, uncomplicated; I69.354 Hemiplegia and hemiparesis following cerebral infarction affecting left non-dominant side; F12.90 Cannabis use, unspecified, uncomplicated; F14.90 Cocaine use, unspecified, uncomplicated; Z59.0 Homelessness; Z72.0 Tobacco use; E07.81 Sick-euthyroid syndrome; F51.5 Nightmare disorder; G43.909 Migraine, unspecified, not intractable, without status migrainosus; G89.29 Other chronic pain; I10 Essential (primary) hypertension; J45.909 Unspecified asthma, uncomplicated; K21.9 Gastro-esophageal reflux disease without esophagitis; M19.90 Unspecified osteoarthritis, unspecified site
CPT/HCPCS: 36430; 80048; 80053; 80061; 80307; 80320; 82248; 83010; 83036; 83615; 83735; 84100; 84439; 84443; 84481; 85007; 85025; 85027; 85044; 86850; 86900; 86901; 86920; 90686; 96374; 96375; J1170; J1642; J2270; J2405; J2550; J7030; P9016; Q0163; Q2038

== ENCOUNTER 2017-07-02 23:41 | Emergency (ER) | payer MEDICARE, MEDICAID ==
[~2017-07-02] VITALS: Ht 175.3 cm; Wt 65.9 kg
[~2017-07-02 23:41] MED LIST changes: +AMIT1TAB79 PO; -FOLI1TAB4 PO; -HYDR-3533 PO; +NORC5TAB PO; -PERC10TA27 PO; -PREV30CA11 PO; +PREV30CA36 PO; +QUET1TAB8 PO; +TRAZ50TA12 PO
[2017-07-02 23:44] VITALS: BP 134/76; PULSE 58; RESP 16; TEMP 98.6; O2SAT 95
[2017-07-03] MEDS ORDERED: SODIUM CHLOR 0.9% 1000 ML INJ 1,000 ML IV ONE ×2 (00:03→02:00)
[2017-07-03] MEDS ORDERED: MORPHINE SULFATE 2 MG/ML INJ IV PUSH ONE (00:15)
[2017-07-03] MEDS ORDERED: SODIUM CHLORIDE 0.9% FLUSH 10 ML FLUSH IVF PRN (00:15)
--- NOTE | 2017-07-03 00:17 | PD ---
HPI Chief Complaint: Chest Pain Time Seen by Provider: 00:03 Travel History International Travel<30 days: No Contact w/Intl Traveler<30days: No Traveled to known affect area: No History of Present Illness HPI Patient is a 47-year-old male with history of sickle cell disease, presents to the emergency room with multiple complaints. Patient reports that for the past few hours, he has been having left sided chest pain. Patient reports that chest pain is left-sided nature, reports pain is sharp and stabbing with increased pressure to his chest. Patient with no diaphoresis or shortness of breath this chest pain. Patient with no chest pain at this time. Patient also reports that he also has myalgias, nausea vomiting with his symptoms. Patient reports that these are his typical sickle cell crisis symptoms. Patient is unable to tell me if he follows up with primary therapist, patient only requesting IV Dilaudid or morphine for pain at this time. PFSH Past Medical History Hx Anticoagulant Therapy: No Anemia: Yes Arthritis: Yes Asthma: Yes Autoimmune Disease: No Blood Disorders: Yes (SICKLE CELL) Anxiety: Yes Depression: Yes Heart Rhythm Problems: No Cancer: No Cardiovascular Problems: Yes High Cholesterol: No Chemotherapy: No Chest Pain: Yes Congestive Heart Failure: No COPD: No Cerebrovascular Accident: Yes (PARALYSIS L SIDE ) Cystic Fibrosis: No Diabetes: No Diminished Hearing: No Endocrine: No Gastrointestinal Disorders: No GERD: Yes Genitourinary: No Headaches: No Hepatitis: No Hiatal Hernia: No Hypertension: Yes Immune Disorder: No Implanted Vascular Access Dvce: Yes (LEFT CHEST POWER PORT) Kidney Stones: Yes 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) Psychiatric: Yes (Hx of treatment for depression) Reproductive: Yes (ERECTILE DYSFUNCTION) Respiratory: Yes Immunizations Current: Yes Migraines: Yes Pneumonia: Yes Radiation Therapy: No Renal Failure: No Seizures: No Sickle Cell Disease: Yes Sleep Apnea: No Thyroid Disease: No Ulcer: No PNEUMOCCOCAL Vaccine (Year): 2 Past Surgical History Abdominal Surgery: Yes AICD: No Appendectomy: No Arteriovenous Shunt: No Body Medical Devices: Subclavian power port Cardiac Surgery: No Cholecystectomy: Yes Ear Surgery: No Endocrine Surgery: No Genitourinary Surgery: Yes Gynecologic Surgery: No Insulin Pump: No Joint Replacement: No Neurologic Surgery: No Oral Surgery: Yes (ALL TEETH REMOVED) Pacemaker: No Thoracic Surgery: No Other Surgery: Yes (gall bladder, denture, priapism) Social History Alcohol Use: Yes Tobacco Use: Yes Substance Use: Yes (patient's tox screen positive for marijuana and cocaine) Allergies-Medications (Allergen,Severity, Reaction): Coded Allergies: ibuprofen (Unverified Allergy, Severe, RECTAL BLEEDING, 07/02/17) methadone (Unverified Allergy, Severe, RECTAL BLEEDING., 07/02/17) tramadol (Unverified Allergy, Severe, Hallucinations, 07/02/17) shrimp (Unverified Allergy, Mild, 07/02/17) Reported Meds & Prescriptions Reported Meds & Active Scripts Active [place] (Hydrocodone-Acetaminophen) 5-325 mg Tab 1 Tab PO Q4H PRN Trazodone (Trazodone HCl) 50 Mg Tab 100 Mg PO HS PRN Zofran Odt (Ondansetron Odt) 4 Mg Tab 4 Mg SL Q8HR PRN Multi-Vitamins (Multiple Vitamin) 1 Tab Tab 1 Tab PO DAILY 90 Days Reported Prevacid (Lansoprazole) 30 Mg Capdr 30 Mg PO DAILY Catapres (Clonidine) 0.3 Mg Tab 0.3 Mg PO BID Hydrea (Hydroxyurea) 500 Mg Cap 500 Mg PO TID Ventolin Hfa 18 GM Inh (Albuterol Sulfate) 90 Mcg/Act Aer 2 Puff INH Q4H PRN Review of Systems General / Constitutional: No: Fever Eyes: No: Visual changes HENT: No: Headaches Cardiovascular: Positive: Chest Pain or Discomfort Respiratory: No: Shortness of Breath Gastrointestinal: Positive: Nausea, Vomiting, No: Abdominal Pain Genitourinary: No: Dysuria Musculoskeletal: No: Pain Skin: No Rash Neurologic: No: Weakness Psychiatric: No: Depression Endocrine: No: Polydipsia Hematologic/Lymphatic: No: Easy Bruising Physical Exam Narrative GENERAL: Mild distress SKIN: Focused skin assessment warm/dry. HEAD: Atraumatic. Normocephalic. EYES: Pupils equal and round. No scleral icterus. No injection or drainage. ENT: No nasal bleeding or discharge. Mucous membranes pink and moist. NECK: Trachea midline. No JVD. CARDIOVASCULAR: Regular rate and rhythm. No murmur appreciated. RESPIRATORY: No accessory muscle use. Clear to auscultation. Breath sounds equal bilaterally. GASTROINTESTINAL: Abdomen soft, non-tender, nondistended. Hepatic and splenic margins not palpable. MUSCULOSKELETAL: No obvious deformities. No clubbing. No cyanosis. No edema. NEUROLOGICAL: Awake and alert. No obvious cranial nerve deficits. Motor grossly within normal limits. Normal speech. PSYCHIATRIC: Appropriate mood and affect; insight and judgment normal. Data Data Last Documented VS Vital Signs Date Time Temp Pulse Resp B/P (MAP) Pulse Ox O2 Delivery O2 Flow Rate FiO2 07/02/17 23:44 98.6 58 16 134/76 (95) 95 Room Air Orders Orders Basic Metabolic Panel (Bmp) (07/03/17 00:03) Complete Blood Count With Diff (07/03/17 00:03) Retic Count (07/03/17 00:03) Urinalysis - C+S If Indicated (07/03/17 00:03) Chest, Single Ap (07/03/17 00:03) Ecg Monitoring (07/03/17 00:03) Iv Access Insert/Monitor (07/03/17 00:03) Oximetry (07/03/17 00:03) Sodium Chloride 0.9% Flush (Ns Flush) (07/03/17 00:15) Sodium Chlor 0.9% 1000 Ml Inj (Ns 1000 M (07/03/17 00:03) Ckmb (Isoenzyme) Profile (07/03/17 00:03) Troponin I (07/03/17 00:03) Drug Screen, Random Urine (07/03/17 00:03) Morphine Inj (Morphine Inj) (07/03/17 00:15) Ondansetron Inj (Zofran Inj) (07/03/17 00:45) Labs Laboratory Tests Test 07/03/17 00:25 Urine Color YELLOW Urine Turbidity CLEAR Urine pH 6.5 Urine Specific [place] 1.010 Urine Protein NEG mg/dL Urine Glucose (UA) NEG mg/dL Urine Ketones NEG mg/dL Urine Occult Blood NEG Urine Nitrite NEG Urine Bilirubin NEG Urine Urobilinogen 2.0 MG/DL Urine Leukocyte Esterase NEG Urine WBC 1 /hpf Microscopic Urinalysis Comment CULT NOT INDICATED Urine Opiates Screen NEG Urine Barbiturates Screen NEG Urine Amphetamines Screen NEG Urine Benzodiazepines Screen NEG Urine Cocaine Screen NEG Urine Cannabinoids Screen POS MDM Medical Decision Making Medical Screen Exam Complete: Yes Emergency Medical Condition: Yes Medical Record Reviewed: Yes Interpretation(s) EKG at 0044: Sinus flora at 45bpm, qt/qtc: 446/401, no acute st or t wave changes Vital Signs Date Time Temp Pulse Resp B/P (MAP) Pulse Ox O2 Delivery O2 Flow Rate FiO2 07/02/17 23:44 98.6 58 16 134/76 (95) 95 Room Air Differential Diagnosis Sickle cell crisis, ACS, arrhythmia, electrolyte abnormality, gastritis, gastroenteritis Narrative Course 47-year-old male who presents to emergency room with complaints of sickle cell crisis. Patient reports that when he has sickle cell crisis, he has chest pain with nausea and vomiting. Patient is unable to tell me who his primary therapist is. Previous records were reviewed. Patient with previously seen at the [facility], he was discharged from their service as he has had medication noncompliance multiple no shows for his appointments. Patient does have history of sickle cell disease and has had complications from this including CVA with residual left sided weakness. He has had multiple blood transfusions in the past due to his sickle cell crisis. Patient reports that he has symptoms to his sickle cell crisis at this time. During the course of the patients emergency department visit, the patients history, examination, and differential diagnosis were reviewed with the patient. The patient was placed on a hat forming machine operator with oximetry and frequent blood pressure monitoring. The patient had his port accessed, blood work was obtained and blood work sent for analysis. The patient was initially provided IVF as well as IV morphine. The patients laboratory studies were reviewed and remarkable for [-]. Radiology studies were reviewed and remarkable for [-] Diagnosis Primary Impression: Left against medical advice Additional Impressions: Sickle cell crisis Chest pain Patient Instructions: General Instructions Additional Instructions: You have chosen to leave the hospital against medical advice, you may return to the ER at any time for further evaluation of your symptoms Please follow up with your primary care doctor as well as primary therapist Return to ER as needed Disposition: 07 AGAINST MEDICAL ADVICE Condition: Serious Kailey Owusu DO Jul 03, 2017 00:17
[2017-07-03 00:37] LABS: BILIRUBIN, URINE NEG (NEG); BLOOD, URINE NEG (NEG); GLUCOSE,URINE NEG (NEG); KETONE, URINE NEG (NEG); NITRITE,URINE NEG (NEG); PH, URINE 6.5 (5.0-8.5); URINE COLOR YELLOW (YELLW/STRAW); URINE LEUKOCYTE ESTERASE NEG (NEG)
[2017-07-03 00:39] LABS: HEMATOCRIT 24.1 % (39.0-51.0); HEMOGLOBIN 8.5 GM/DL (13.0-17.0); MEAN CELL VOLUME 96.4 FL (80.0-100.0); MEAN CORPUSCULAR HGB CONC 35.3 % (32.0-36.0); MEAN PLATELET VOLUME 8.4 FL (7.0-11.0); PLATELET COUNT 320 TH/MM3 (150-450); RED CELL DISTRIBUTION WIDTH 17.4 % (11.6-17.2); RETIC # 192.3 MIL/L (20.0-150.0); RETIC % 7.7 % (0.4-3.0); WHITE BLOOD COUNT 10.7 TH/MM3 (4.0-11.0)
[2017-07-03] MEDS ORDERED: ONDANSETRON HCL 4 MG/2 ML VIAL IV PUSH ONE (00:45)
--- NOTE | 2017-07-03 00:52 | RADRPT ---
EXAM DATE/TIME: 07/03/2017 00:32 [facility] COMPARISON: CHEST SINGLE AP, July 13, 2016, 22:16. INDICATIONS : Chest pain. MEDICAL HISTORY : Hypertension. Sickle Cell disease. Asthma. CVA. SURGICAL HISTORY : Cholecystectomy. Port. ENCOUNTER: Initial ACUITY: 1 day PAIN SCORE: 10/10 LOCATION: Left chest FINDINGS: Left chest port is stable in position and is accessed. There is mild reticular interstitial infiltrat e in the lung bases. Cardiac contour is grossly satisfactory. CONCLUSION: Mild basilar interstitial infiltrates. Neville Esparza MD on July 03, 2017 at 0:49 Board Certified Radiologist. This report was verified electronically.
[2017-07-03 00:56] LABS: BICARBONATE 22.5 MEQ/L (21.0-32.0); BLOOD UREA NITROGEN 8 MG/DL (7-18); CALCIUM 8.7 MG/DL (8.5-10.1); CHLORIDE 113 MEQ/L (98-107); CREATININE 0.63 MG/DL (0.60-1.30); GLOMERULAR FILTRATION RATE 167 ML/MIN (>89); GLUCOSE,RANDOM 95 MG/DL (74-106); SODIUM (NA) 144 MEQ/L (136-145)
[2017-07-03 00:59] LABS: TROPONIN I LESS THAN 0.02 NG/ML (0.02-0.05)
[2017-07-03 01:28] LABS: BANDS 3 % (0-6); CORRECTED NUCLEATED RBC 2 /100 WBC (0-0); HOWELL-JOLLY BODIES PRESENT (NONE SEEN); LYMPHOCYTES 25 % (9-44); MONOCYTES 1 % (0-8); NEUTROPHIL # MANUAL DIFF 7.6 TH/MM3 (1.8-7.7); NUCLEATED RED BLOOD CELL 2 (0-0); POLYS (SEG NEUTROPHILS) 68 % (16-70)
--- NOTE | 2017-07-03 05:50 | PD ---
Physical Exam Date Seen by Provider: Jul 03, 2017 Time Seen by Provider: 05:18 Narrative GENERAL: This is a well-nourished, well-developed patient, in no apparent distress. SKIN: No rashes, ecchymoses or lesions. Warm and dry. HEAD: Atraumatic. Normocephalic. EYES: PERRL, EOMI, no discharge or injection. No scleral icterus. EARS: Clear NOSE: Nasal turbinates appear normal. THROAT: Mucosa pink and moist. Airway patent. NECK: Trachea midline. supple, moves head freely. LUNGS: Clear to auscultation. CV: Regular in rhythm. ABDOMEN: Soft nontender. EXT: No clubbing cyanosis or edema. Data Data Last Documented VS Vital Signs Date Time Temp Pulse Resp B/P (MAP) Pulse Ox O2 Delivery O2 Flow Rate FiO2 07/02/17 23:44 98.6 58 16 134/76 (95) 95 Room Air Orders Orders Basic Metabolic Panel (Bmp) (07/03/17 00:03) Complete Blood Count With Diff (07/03/17 00:03) Retic Count (07/03/17 00:03) Urinalysis - C+S If Indicated (07/03/17 00:03) Chest, Single Ap (07/03/17 00:03) Ecg Monitoring (07/03/17 00:03) Iv Access Insert/Monitor (07/03/17 00:03) Oximetry (07/03/17 00:03) Sodium Chloride 0.9% Flush (Ns Flush) (07/03/17 00:15) Sodium Chlor 0.9% 1000 Ml Inj (Ns 1000 M (07/03/17 00:03) Ckmb (Isoenzyme) Profile (07/03/17 00:03) Troponin I (07/03/17 00:03) Drug Screen, Random Urine (07/03/17 00:03) Morphine Inj (Morphine Inj) (07/03/17 00:15) Ondansetron Inj (Zofran Inj) (07/03/17 00:45) Fentanyl Inj (Fentanyl Inj) (07/03/17 02:00) Sodium Chlor 0.9% 1000 Ml Inj (Ns 1000 M (07/03/17 02:00) Heparin Central Flush (Heparin Central F (07/03/17 02:00) Labs Laboratory Tests Test 07/03/17 00:25 White Blood Count 10.7 TH/MM3 Red Blood Count 2.50 MIL/MM3 Hemoglobin 8.5 GM/DL Hematocrit 24.1 % Mean Corpuscular Volume 96.4 FL Mean Corpuscular Hemoglobin 34.0 PG Mean Corpuscular Hemoglobin Concent 35.3 % Red Cell Distribution Width 17.4 % Platelet Count 320 TH/MM3 Mean Platelet Volume 8.4 FL CBC Comment AUTO DIFF Differential Total Cells Counted 100 Neutrophils % (Manual) 68 % Band Neutrophils % 3 % Lymphocytes % 25 % Monocytes % 1 % Eosinophils % 3 % Neutrophils # (Manual) 7.6 TH/MM3 Nucleated Red Blood Cells 2 /100 WBC Differential Comment FINAL DIFF MANUAL Platelet Estimate NORMAL Platelet Morphology Comment ENLARGED [place] Bodies PRESENT Reticulocyte Count 7.7 % Absolute Reticulocyte Count 192.3 MIL/L Urine Color YELLOW Urine Turbidity CLEAR Urine pH 6.5 Urine Specific [place] 1.010 Urine Protein NEG mg/dL Urine Glucose (UA) NEG mg/dL Urine Ketones NEG mg/dL Urine Occult Blood NEG Urine Nitrite NEG Urine Bilirubin NEG Urine Urobilinogen 2.0 MG/DL Urine Leukocyte Esterase NEG Urine WBC 1 /hpf Microscopic Urinalysis Comment CULT NOT INDICATED Blood Urea Nitrogen 8 MG/DL Creatinine 0.63 MG/DL Random Glucose 95 MG/DL Calcium Level 8.7 MG/DL Sodium Level 144 MEQ/L Potassium Level 3.5 MEQ/L Chloride Level 113 MEQ/L Carbon Dioxide Level 22.5 MEQ/L Anion Gap 9 MEQ/L Estimat Glomerular Filtration Rate 167 ML/MIN Total Creatine Kinase 41 U/L Troponin I LESS THAN 0.02 NG/ML Urine Opiates Screen NEG Urine Barbiturates Screen NEG Urine Amphetamines Screen NEG Urine Benzodiazepines Screen NEG Urine Cocaine Screen NEG Urine Cannabinoids Screen POS [facility] Medical Record Reviewed: Yes Supervised Visit with MICHAEL: Yes Interpretation(s) Laboratory Tests Test 07/03/17 00:25 White Blood Count 10.7 TH/MM3 Red Blood Count 2.50 MIL/MM3 Hemoglobin 8.5 GM/DL Hematocrit 24.1 % Mean Corpuscular Volume 96.4 FL Mean Corpuscular Hemoglobin 34.0 PG Mean Corpuscular Hemoglobin Concent 35.3 % Red Cell Distribution Width 17.4 % Platelet Count 320 TH/MM3 Mean Platelet Volume 8.4 FL CBC Comment AUTO DIFF Differential Total Cells Counted 100 Neutrophils % (Manual) 68 % Band Neutrophils % 3 % Lymphocytes % 25 % Monocytes % 1 % Eosinophils % 3 % Neutrophils # (Manual) 7.6 TH/MM3 Nucleated Red Blood Cells 2 /100 WBC Differential Comment FINAL DIFF MANUAL Platelet Estimate NORMAL Platelet Morphology Comment ENLARGED [place] Bodies PRESENT Reticulocyte Count 7.7 % Absolute Reticulocyte Count 192.3 MIL/L Urine Color YELLOW Urine Turbidity CLEAR Urine pH 6.5 Urine Specific [place] 1.010 Urine Protein NEG mg/dL Urine Glucose (UA) NEG mg/dL Urine Ketones NEG mg/dL Urine Occult Blood NEG Urine Nitrite NEG Urine Bilirubin NEG Urine Urobilinogen 2.0 MG/DL Urine Leukocyte Esterase NEG Urine WBC 1 /hpf Microscopic Urinalysis Comment CULT NOT INDICATED Blood Urea Nitrogen 8 MG/DL Creatinine 0.63 MG/DL Random Glucose 95 MG/DL Calcium Level 8.7 MG/DL Sodium Level 144 MEQ/L Potassium Level 3.5 MEQ/L Chloride Level 113 MEQ/L Carbon Dioxide Level 22.5 MEQ/L Anion Gap 9 MEQ/L Estimat Glomerular Filtration Rate 167 ML/MIN Total Creatine Kinase 41 U/L Troponin I LESS THAN 0.02 NG/ML Urine Opiates Screen NEG Urine Barbiturates Screen NEG Urine Amphetamines Screen NEG Urine Benzodiazepines Screen NEG Urine Cocaine Screen NEG Urine Cannabinoids Screen POS Differential Diagnosis . Narrative Course I reviewed the patient's medical record. I reviewed the patient's laboratory tests. The case had been discussed with Dr. Owusu who had been his primary physician earlier this evening. She asked me to review his medical record and to sign the patient out AGAINST MEDICAL ADVICE if he had persistent chest pain. The patient has had complete resolution of his symptoms. At this point I do not believe that he needs to be admitted. Had several liters of fluid and multiple doses of analgesics. He has slept and has rested well. He has been up to the bathroom. His pain has nearly completely resolved. He has no chest pain. No shortness of breath. His vital signs are stable. The patient is medically stable and can be discharged home. Diagnosis Primary Impression: Sickle cell crisis Ruled Out: Left against medical advice Patient Instructions: General Instructions Additional Instruction: Please follow up with your primary care doctor as well as petrologist Return to ER as needed Med/Other Pt SpecificInfo: No Meds Exist/No RX given (is) Disposition: 01 DISCHARGE HOME Condition: Stable Keelen,Bryce T. PA Jul 03, 2017 05:50
--- NOTE | 2017-07-03 22:50 | EKG ---
Date Performed: 07/03/2017 Time Performed: 00:44:16 PTAGE: 47 years EKG: SINUS BRADYCARDIA VOLTAGE CRITERIA FOR LVH ABNORMAL ECG PREVIOUS TRACING : 04/21/2016 23.41 Compared to prior tracing no significant change DOCTOR: Percy Lemus Interpretating Date/Time 07/03/2017 22:48:31
== END 2017-07-03 06:10 | disposition home or self-care (01) ==
LOC: NEPD 23:41
DX: D57.00 Hb-SS disease with crisis, unspecified (principal); R07.9 Chest pain, unspecified; J45.909 Unspecified asthma, uncomplicated; F41.9 Anxiety disorder, unspecified; F32.9 Major depressive disorder, single episode, unspecified; I10 Essential (primary) hypertension; Z88.6 Allergy status to analgesic agent; I69.959 Hemiplegia and hemiparesis following unspecified cerebrovascular disease affecting unspecified side; Z72.0 Tobacco use
CPT/HCPCS: 71010; 80048; 80307; 81001; 82550; 84484; 85007; 85027; 85044; 93005; 96361; 96374; 96375; 99285; J1642; J2270; J2405; J3010; J7030

== ENCOUNTER 2017-07-14 04:15 | Emergency (ER) | payer MEDICARE, MEDICAID ==
[~2017-07-14] VITALS: Ht 175.3 cm; Wt 67.0 kg
[~2017-07-14 04:15] MED LIST changes: -AMIT1TAB79 PO; -QUET1TAB8 PO
[2017-07-14 04:16] VITALS: BP 134/82; PULSE 66; RESP 18; TEMP 98.6; O2SAT 98
[2017-07-14] MEDS ORDERED: SODIUM CHLOR 0.9% 1000 ML INJ 1,000 ML IV ONE ×2 (04:30→05:30)
[2017-07-14] MEDS ORDERED: ONDANSETRON HCL 4 MG/2 ML VIAL IV PUSH ONE (04:30)
[2017-07-14 04:52] LABS: AUTOMATED NEUTROPHIL # 8.9 TH/MM3 (1.8-7.7); BASOPHIL # 0.2 TH/MM3 (0-0.2); BASOPHIL % 1.6 % (0.0-2.0); EOSINOPHIL # 0.5 TH/MM3 (0-0.4); EOSINOPHIL % 3.5 % (0.0-4.0); HEMATOCRIT 23.8 % (39.0-51.0); HEMOGLOBIN 8.1 GM/DL (13.0-17.0); LYMPH % 22.8 % (9.0-44.0); LYMPHOCYTE # 3.1 TH/MM3 (1.0-4.8); MEAN PLATELET VOLUME 8.1 FL (7.0-11.0); MONO % 5.9 % (0.0-8.0); MONOCYTE # 0.8 TH/MM3 (0-0.9); NEUT % 66.2 % (16.0-70.0); PLATELET COUNT 418 TH/MM3 (150-450); RED BLOOD COUNT 2.53 MIL/MM3 (4.50-5.90); RED CELL DISTRIBUTION WIDTH 17.3 % (11.6-17.2); WHITE BLOOD COUNT 13.4 TH/MM3 (4.0-11.0)
[2017-07-14 05:04] LABS: AST (GOT) 20 U/L (15-37); BLOOD UREA NITROGEN 6 MG/DL (7-18); CALCIUM 8.6 MG/DL (8.5-10.1); CHLORIDE 114 MEQ/L (98-107); CREATININE 0.77 MG/DL (0.60-1.30); GLOMERULAR FILTRATION RATE 132 ML/MIN (>89); GLUCOSE,RANDOM 92 MG/DL (74-106); SODIUM (NA) 143 MEQ/L (136-145)
[2017-07-14 05:05] LABS: ALT (GPT) 21 U/L (12-78)
[2017-07-14 05:07] LABS: ALKALINE PHOSPHATASE 96 U/L (45-117); TOTAL BILIRUBIN ADULT 2.3 MG/DL (0.2-1.0); TOTAL PROTEIN 8.1 GM/DL (6.4-8.2)
[2017-07-14 05:09] LABS: RETIC # 249.5 MIL/L (20.0-150.0); RETIC % 9.8 % (0.4-3.0)
--- NOTE | 2017-07-14 05:23 | PD ---
HPI Chief Complaint: Pain: Acute or Chronic Time Seen by Provider: 04:20 Travel History International Travel<30 days: No Contact w/Intl Traveler<30days: No Traveled to known affect area: No History of Present Illness HPI 47-year-old black male well-known to the ER with a history of sickle cell disease presents to emergency department by EMS stating that he is having sickle cell pain. He is out of his Percocet. He states that he has pain in his chest, back and shoulders. He states that this is typical of his pain. He denies any fever chills. He had some nausea and vomited earlier today. Patient denies any shortness of breath or wheezing. No abdominal pain or urinary symptoms. PFSH Past Medical History Hx Anticoagulant Therapy: No Anemia: Yes Arthritis: Yes Asthma: Yes Autoimmune Disease: No Blood Disorders: Yes (SICKLE CELL) Anxiety: Yes Depression: Yes Heart Rhythm Problems: No Cancer: No Cardiovascular Problems: Yes High Cholesterol: No Chemotherapy: No Chest Pain: Yes Congestive Heart Failure: No COPD: No Cerebrovascular Accident: Yes (PARALYSIS L SIDE ) Cystic Fibrosis: No Diabetes: No Diminished Hearing: No Endocrine: No Gastrointestinal Disorders: No GERD: Yes Genitourinary: No Headaches: No Hepatitis: No Hiatal Hernia: No Hypertension: Yes Immune Disorder: No Implanted Vascular Access Dvce: Yes (LEFT CHEST POWER PORT) Kidney Stones: Yes 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) Psychiatric: Yes (Hx of treatment for depression) Reproductive: Yes (ERECTILE DYSFUNCTION) Respiratory: Yes Immunizations Current: Yes Migraines: Yes Pneumonia: Yes Radiation Therapy: No Renal Failure: No Seizures: No Sickle Cell Disease: Yes Sleep Apnea: No Thyroid Disease: No Ulcer: No Tetanus Vaccination: < 5 Years Influenza Vaccination: Yes PNEUMOCCOCAL Vaccine (Year): 2 Past Surgical History Abdominal Surgery: Yes AICD: No Appendectomy: No Arteriovenous Shunt: No Body Medical Devices: Subclavian power port Cardiac Surgery: No Cholecystectomy: Yes Ear Surgery: No Endocrine Surgery: No Genitourinary Surgery: Yes Gynecologic Surgery: No Insulin Pump: No Joint Replacement: No Neurologic Surgery: No Oral Surgery: Yes (ALL TEETH REMOVED) Pacemaker: No Thoracic Surgery: No Other Surgery: Yes (gall bladder, denture, priapism) Social History Alcohol Use: Yes Tobacco Use: Yes Substance Use: Yes (HX marijuana and cocaine) Allergies-Medications (Allergen,Severity, Reaction): Coded Allergies: ibuprofen (Unverified Allergy, Severe, RECTAL BLEEDING, 07/14/17) methadone (Unverified Allergy, Severe, RECTAL BLEEDING., 07/14/17) tramadol (Unverified Allergy, Severe, Hallucinations, 07/14/17) shrimp (Unverified Allergy, Mild, 07/14/17) Reported Meds & Prescriptions Reported Meds & Active Scripts Active [place] (Hydrocodone-Acetaminophen) 5-325 mg Tab 1 Tab PO Q4H PRN Trazodone (Trazodone HCl) 50 Mg Tab 100 Mg PO HS PRN Zofran Odt (Ondansetron Odt) 4 Mg Tab 4 Mg SL Q8HR PRN Multi-Vitamins (Multiple Vitamin) 1 Tab Tab 1 Tab PO DAILY 90 Days Reported Prevacid (Lansoprazole) 30 Mg Capdr 30 Mg PO DAILY Catapres (Clonidine) 0.3 Mg Tab 0.3 Mg PO BID Hydrea (Hydroxyurea) 500 Mg Cap 500 Mg PO TID Ventolin Hfa 18 GM Inh (Albuterol Sulfate) 90 Mcg/Act Aer 2 Puff INH Q4H PRN Review of Systems General / Constitutional: No: Fever Eyes: No: Visual changes HENT: No: Headaches Cardiovascular: Positive: Chest Pain or Discomfort Respiratory: No: Cough, Shortness of Breath Gastrointestinal: Positive: Nausea, Vomiting, No: Abdominal Pain Genitourinary: No: Dysuria Musculoskeletal: Positive: Myalgias, Arthralgias, Pain, No: Limited ROM, Weakness Skin: No Rash Neurologic: No: Weakness Psychiatric: No: Depression Endocrine: No: Polydipsia Hematologic/Lymphatic: No: Easy Bruising Physical Exam Narrative And my physical forGENERAL: Well-developed, well-nourished in no apparent distress. Nontoxic appearing. HEAD: Normocephalic, atraumatic. EYES: Pupils equal round and reactive. Extraocular motions intact. No scleral icterus. No injection or drainage. ENT: Nose clear. Throat without erythema, tonsillar hypertrophy or exudate. Uvula midline. Airway patent. NECK: Trachea midline. Supple, nontender, moves head freely. No central bony tenderness or spasm. CARDIOVASCULAR: Regular rate and rhythm without murmurs, gallops, or rubs. RESPIRATORY: Clear to auscultation. Breath sounds equal bilaterally. No wheezes , rales, or rhonchi. GASTROINTESTINAL: Abdomen soft, non-tender, nondistended. No hepato-splenomegaly , or palpable masses. No guarding. EXTREMITIES: No clubbing, cyanosis, or edema. No joint tenderness. BACK: Nontender without deformity. No flank tenderness. NEUROLOGICAL: Awake, alert and oriented x 3 .Cranial nerves grossly intact. Patient has chronic weakness in the left upper extremity.. Normal speech. Data Data Last Documented VS Vital Signs Date Time Temp Pulse Resp B/P (MAP) Pulse Ox O2 Delivery O2 Flow Rate FiO2 07/14/17 06:30 44 16 111/67 (82) 100 Room Air 07/14/17 04:16 98.6 Orders Orders Complete Blood Count With Diff (07/14/17 04:27) Comprehensive Metabolic Panel (07/14/17 04:27) Iv Access Insert/Monitor (07/14/17 04:27) Sodium Chlor 0.9% 1000 Ml Inj (Ns 1000 M (07/14/17 04:30) Ondansetron Inj (Zofran Inj) (07/14/17 04:30) Fentanyl Inj (Fentanyl Inj) (07/14/17 04:30) Retic Count (07/14/17 04:27) Ecg Monitoring (07/14/17 05:23) Oximetry (07/14/17 05:23) Oxygen Administration (07/14/17 05:23) Sodium Chloride 0.9% Flush (Ns Flush) (07/14/17 05:30) Fentanyl Inj (Fentanyl Inj) (07/14/17 05:30) Sodium Chlor 0.9% 1000 Ml Inj (Ns 1000 M (07/14/17 05:30) Ed Discharge Order (07/14/17 06:32) Labs Laboratory Tests Test 07/14/17 04:37 White Blood Count 13.4 TH/MM3 Red Blood Count 2.53 MIL/MM3 Hemoglobin 8.1 GM/DL Hematocrit 23.8 % Mean Corpuscular Volume 94.0 FL Mean Corpuscular Hemoglobin 32.0 PG Mean Corpuscular Hemoglobin Concent 34.0 % Red Cell Distribution Width 17.3 % Platelet Count 418 TH/MM3 Mean Platelet Volume 8.1 FL Neutrophils (%) (Auto) 66.2 % Lymphocytes (%) (Auto) 22.8 % Monocytes (%) (Auto) 5.9 % Eosinophils (%) (Auto) 3.5 % Basophils (%) (Auto) 1.6 % Neutrophils # (Auto) 8.9 TH/MM3 Lymphocytes # (Auto) 3.1 TH/MM3 Monocytes # (Auto) 0.8 TH/MM3 Eosinophils # (Auto) 0.5 TH/MM3 Basophils # (Auto) 0.2 TH/MM3 CBC Comment AUTO DIFF Differential Total Cells Counted 100 Neutrophils % (Manual) 57 % Lymphocytes % 33 % Monocytes % 8 % Eosinophils % 2 % Neutrophils # (Manual) 7.6 TH/MM3 Nucleated Red Blood Cells 2 /100 WBC Differential Comment FINAL DIFF MANUAL Platelet Estimate HIGH Platelet Morphology Comment NORMAL Polychromasia 5.6 % Basophilic Stippling FAINT Sickle Cells 1+ Acanthocytes OCC Reticulocyte Count 9.8 % Absolute Reticulocyte Count 249.5 MIL/L Blood Urea Nitrogen 6 MG/DL Creatinine 0.77 MG/DL Random Glucose 92 MG/DL Total Protein 8.1 GM/DL Albumin 4.0 GM/DL Calcium Level 8.6 MG/DL Alkaline Phosphatase 96 U/L Aspartate Amino Transf (AST/SGOT) 20 U/L Alanine Aminotransferase (ALT/SGPT) 21 U/L Total Bilirubin 2.3 MG/DL Sodium Level 143 MEQ/L Potassium Level 3.5 MEQ/L Chloride Level 114 MEQ/L Carbon Dioxide Level 22.0 MEQ/L Anion Gap 7 MEQ/L Estimat Glomerular Filtration Rate 132 ML/MIN [facility] Medical Decision Making Medical Screen Exam Complete: Yes Emergency Medical Condition: Yes Medical Record Reviewed: Yes Interpretation(s) CBC & BMP Diagram 07/14/17 04:37 Total Protein 8.1, Albumin 4.0, Calcium Level 8.6, Alkaline Phosphatase 96, Aspartate Amino Transf (AST/SGOT) 20, Alanine Aminotransferase (ALT/SGPT) 21, Total Bilirubin 2.3 H Differential Diagnosis Differential diagnoses: Sickle cell disease, dehydration, substance abuse, malingering Narrative Course Patient has IV access obtained. Given a liter bolus of saline, Zofran 8 mg IV, fentanyl 50 g IV. Patient is on O2 by nasal cannula as well as O2 monitor/EKG Patient's given a second dose of fentanyl 50 g IV and a second liter of normal saline. The patient is now resting comfortable. This is a sickle cell crisis pain Diagnosis Primary Impression: Sickle cell pain crisis Patient Instructions: Narcotic given in the ED, General Instructions Additional Instructions: Rest. Force fluids. Percocet. Follow-up with your doctor in the next 1-2 days. Med/Other Pt SpecificInfo: Prescription(s) given Scripts Oxycodone-Acetaminophen (Percocet) 5-325 mg Tab 1 TAB PO Q4H Y for PAIN, #12 TAB 0 Refills Prov: Dagoberto Arora MD 07/14/17 Disposition: 01 DISCHARGE HOME Condition: Stable Bryce Matos Jul 14, 2017 05:23
[2017-07-14] MEDS ORDERED: SODIUM CHLORIDE 0.9% FLUSH 10 ML FLUSH IVF PRN (05:30)
[2017-07-14 05:36] VITALS: RESP 16; O2SAT 99
[2017-07-14 05:37] VITALS: BP 110/72; PULSE 42; RESP 16; O2SAT 99
[2017-07-14 06:11] LABS: CORRECTED NUCLEATED RBC 2 /100 WBC (0-0); LYMPHOCYTES 33 % (9-44); MONOCYTES 8 % (0-8); NEUTROPHIL # MANUAL DIFF 7.6 TH/MM3 (1.8-7.7); NUCLEATED RED BLOOD CELL 2 (0-0); POLYS (SEG NEUTROPHILS) 57 % (16-70)
[2017-07-14 06:12] LABS: SICKLE CELLS 1+ (NORMAL)
[2017-07-14 06:13] LABS: ACANTHOCYTES OCC (NORMAL); POLYCHROMASIA 5.6 % (0.0-1.9)
[2017-07-14 06:30] VITALS: BP 111/67; PULSE 44; RESP 16; O2SAT 100
[2017-07-14] MEDS ORDERED: PERC5TAB12 PO (06:33)
== END 2017-07-14 07:18 | disposition home or self-care (01) ==
LOC: NEPD 04:15
DX: D57.00 Hb-SS disease with crisis, unspecified (principal); I10 Essential (primary) hypertension; K21.9 Gastro-esophageal reflux disease without esophagitis; Z72.0 Tobacco use
CPT/HCPCS: 80053; 85007; 85027; 85044; 96361; 96374; 96375; 96376; 99284; J1642; J2405; J3010; J7030

== ENCOUNTER 2017-07-14 07:09 | Emergency (ER) | payer MEDICARE, MEDICAID ==
[~2017-07-14 07:09] MED LIST changes: +PERC5TAB12 PO
[2017-07-14 07:14] VITALS: BP 175/106; PULSE 122; RESP 22; TEMP 98; O2SAT 97
--- NOTE | 2017-07-14 07:29 | PD ---
HPI Chief Complaint: pain Time Seen by Provider: 07:29 Travel History International Travel<30 days: No Contact w/Intl Traveler<30days: No Traveled to known affect area: No History of Present Illness HPI patient was literally just discharged from ER, returns c/o sickle cell pain , PFSH Past Medical History Hx Anticoagulant Therapy: No Anemia: Yes Arthritis: Yes Asthma: Yes Autoimmune Disease: No Blood Disorders: Yes (SICKLE CELL) Anxiety: Yes Depression: Yes Heart Rhythm Problems: No Cancer: No Cardiovascular Problems: Yes High Cholesterol: No Chemotherapy: No Chest Pain: Yes Congestive Heart Failure: No COPD: No Cerebrovascular Accident: Yes (PARALYSIS L SIDE ) Cystic Fibrosis: No Diabetes: No Diminished Hearing: No Endocrine: No Gastrointestinal Disorders: No GERD: Yes Genitourinary: No Headaches: No Hepatitis: No Hiatal Hernia: No Hypertension: Yes Immune Disorder: No Implanted Vascular Access Dvce: Yes (LEFT CHEST POWER PORT) Kidney Stones: Yes 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) Psychiatric: Yes (Hx of treatment for depression) Reproductive: Yes (ERECTILE DYSFUNCTION) Respiratory: Yes Immunizations Current: Yes Migraines: Yes Pneumonia: Yes Radiation Therapy: No Renal Failure: No Seizures: No Sickle Cell Disease: Yes Sleep Apnea: No Thyroid Disease: No Ulcer: No PNEUMOCCOCAL Vaccine (Year): 2 Past Surgical History Abdominal Surgery: Yes AICD: No Appendectomy: No Arteriovenous Shunt: No Body Medical Devices: Subclavian power port Cardiac Surgery: No Cholecystectomy: Yes Ear Surgery: No Endocrine Surgery: No Genitourinary Surgery: Yes Gynecologic Surgery: No Insulin Pump: No Joint Replacement: No Neurologic Surgery: No Oral Surgery: Yes (ALL TEETH REMOVED) Pacemaker: No Thoracic Surgery: No Other Surgery: Yes (gall bladder, denture, priapism) Social History Alcohol Use: Yes Tobacco Use: Yes Substance Use: Yes (HX marijuana and cocaine) Allergies-Medications (Allergen,Severity, Reaction): Coded Allergies: ibuprofen (Unverified Allergy, Severe, RECTAL BLEEDING, 07/14/17) methadone (Unverified Allergy, Severe, RECTAL BLEEDING., 07/14/17) tramadol (Unverified Allergy, Severe, Hallucinations, 07/14/17) shrimp (Unverified Allergy, Mild, 07/14/17) Reported Meds & Prescriptions Reported Meds & Active Scripts Active Percocet (Oxycodone-Acetaminophen) 5-325 mg Tab 1 Tab PO Q4H PRN [place] (Hydrocodone-Acetaminophen) 5-325 mg Tab 1 Tab PO Q4H PRN Trazodone (Trazodone HCl) 50 Mg Tab 100 Mg PO HS PRN Zofran Odt (Ondansetron Odt) 4 Mg Tab 4 Mg SL Q8HR PRN Multi-Vitamins (Multiple Vitamin) 1 Tab Tab 1 Tab PO DAILY 90 Days Reported Prevacid (Lansoprazole) 30 Mg Capdr 30 Mg PO DAILY Catapres (Clonidine) 0.3 Mg Tab 0.3 Mg PO BID Hydrea (Hydroxyurea) 500 Mg Cap 500 Mg PO TID Ventolin Hfa 18 GM Inh (Albuterol Sulfate) 90 Mcg/Act Aer 2 Puff INH Q4H PRN Review of Systems Except as stated in HPI: all other systems reviewed are Neg Musculoskeletal: Positive: Myalgias, Arthralgias Physical Exam Narrative GENERAL: thin male, in no distress SKIN: Warm and dry. HEAD: Atraumatic. Normocephalic. EYES: Pupils equal and round. No scleral icterus. No injection or drainage. ENT: No nasal bleeding or discharge. Mucous membranes pink and moist. NECK: Trachea midline. No JVD. CARDIOVASCULAR: Regular rate and rhythm. RESPIRATORY: No accessory muscle use. Clear to auscultation. Breath sounds equal bilaterally. GASTROINTESTINAL: Abdomen soft, non-tender, nondistended. MUSCULOSKELETAL: Extremities without clubbing, cyanosis, or edema. No obvious deformities. NEUROLOGICAL: Awake and alert. No obvious cranial nerve deficits. Motor grossly within normal limits. Five out of 5 muscle strength in the arms and legs. Normal speech. PSYCHIATRIC: Appropriate mood and affect; insight and judgment normal. Data Data Last Documented VS Vital Signs Date Time Temp Pulse Resp B/P (MAP) Pulse Ox O2 Delivery O2 Flow Rate FiO2 07/14/17 07:14 98.0 122 22 175/106 (129) 97 MDM Medical Decision Making Medical Screen Exam Complete: Yes Emergency Medical Condition: No Medical Record Reviewed: Yes Differential Diagnosis sicle cell pain v malingering v anemia v Diagnosis Primary Impression: medical clearance Patient Instructions: General Instructions Disposition: 01 DISCHARGE HOME Condition: Stable Enio Hartley MD Jul 14, 2017 07:29
== END 2017-07-14 09:11 | disposition left against medical advice (07) ==
LOC: NEPE 07:09
DX: D57.00 Hb-SS disease with crisis, unspecified (principal); Z72.0 Tobacco use
CPT/HCPCS: 99282

== ENCOUNTER 2017-09-02 18:11 | Inpatient (IN) | payer MEDICARE, MEDICAID ==
[2017-09-02 18:17] VITALS: BP 142/72; PULSE 87; RESP 16; TEMP 97.8; O2SAT 97
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
[2017-09-02 19:59] VITALS: BP 162/80; PULSE 49; RESP 16; O2SAT 97
[2017-09-02] MEDS ORDERED: MORPHINE SULFATE 4 MG/ML INJ IV PUSH ONE (20:15)
[2017-09-02] MEDS ORDERED: ONDANSETRON HCL 4 MG/2 ML VIAL IVP ONE (20:15)
[2017-09-02] MEDS ORDERED: SODIUM CHLORIDE 0.9% FLUSH 10 ML FLUSH IVF PRN (20:15)
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
[2017-09-02 21:05] LABS: HEMATOCRIT 22.5 % (39.0-51.0); HEMOGLOBIN 7.9 GM/DL (13.0-17.0); MEAN CELL VOLUME 88.2 FL (80.0-100.0); MEAN CORPUSCULAR HEMOGLOBIN 30.9 PG (27.0-34.0); MEAN PLATELET VOLUME 7.7 FL (7.0-11.0); PLATELET COUNT 374 TH/MM3 (150-450); RED BLOOD COUNT 2.55 MIL/MM3 (4.50-5.90); RED CELL DISTRIBUTION WIDTH 19.6 % (11.6-17.2); WHITE BLOOD COUNT 15.4 TH/MM3 (4.0-11.0)
[2017-09-02 21:27] LABS: BICARBONATE 21.2 MEQ/L (21.0-32.0); CALCIUM 8.5 MG/DL (8.5-10.1); CREATININE 0.86 MG/DL (0.60-1.30)
[2017-09-02] MEDS ORDERED: BISACODYL 10 MG SUPP RECTAL PRN (21:45)
[2017-09-02] MEDS ORDERED: NALOXONE HCL 0.4 MG/ML AMP IV PUSH PRN (21:45)
[2017-09-02] MEDS ORDERED: SODIUM CHLORIDE 0.9% FLUSH 10 ML FLUSH IV FLUSH PRN (21:45)
[2017-09-02 22:35] LABS: CORRECTED NUCLEATED RBC 3 /100 WBC (0-0); LYMPHOCYTES 4 % (9-44); MONOCYTES 3 % (0-8); NEUTROPHIL # MANUAL DIFF 14.3 TH/MM3 (1.8-7.7); NUCLEATED RED BLOOD CELL 3 (0-0); POLYS (SEG NEUTROPHILS) 93 % (16-70)
[2017-09-02 22:36] LABS: SICKLE CELLS 1+ (NORMAL); TARGET CELLS 1+ (NORMAL)
[2017-09-02 22:39] LABS: HELMET CELLS OCC (NORMAL); KERATOCYTES OCC (NORMAL)
[2017-09-03] VITALS (7 sets, daily range): BP systolic 107–137; BP diastolic 65–74; PULSE 50–88; RESP 14–19; TEMP 97.2–98.5; O2SAT 90–99
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
[2017-09-03] MEDS: SODIUM CHLOR 0.9% 1000 ML INJ 1,000 ML IV SCH ×3 (00:43→17:40)
[2017-09-03] MEDS: ONDANSETRON HCL 4 MG/2 ML VIAL IVP PRN ×3 (00:47→22:53)
[2017-09-03] MEDS: MORPHINE SULFATE 4 MG/ML INJ IV PUSH PRN ×5 (00:48→22:53)
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
--- NOTE | 2017-09-03 03:15 | RADRPT ---
EXAM DATE/TIME: 09/02/2017 19:14 [facility] COMPARISON: CT FACIAL BONES W/O CONTRAST, September 02, 2017, 19:14. INDICATIONS : 3D reconstruction, mandible fracture. Dose: Reconstructed from previous dataset, no dose MEDICAL HISTORY : Cerebrovascular disease. Hypertension. Sickle Cell disease. SURGICAL HISTORY : None. ENCOUNTER: Initial ACUITY: 1 day PAIN SCALE: 10/10 LOCATION: facial TECHNIQUE: 3D reconstructions of the mandible were performed. DICOM format image data is available electronical ly for review and comparison. FINDINGS: The reconstructions demonstrates the mildly displaced comminuted fractures involving the anterior asp ect of the mandible on the left and mandibular ramus on the right. CONCLUSION: Bilateral mandible fractures again noted. Crescencio Núñez MD on September 03, 2017 at 3:10 Board Certified Radiologist. This report was verified electronically.
[2017-09-03 05:51] LABS: MEAN CELL VOLUME 88.2 FL (80.0-100.0); MEAN CORPUSCULAR HEMOGLOBIN 30.1 PG (27.0-34.0); MEAN CORPUSCULAR HGB CONC 34.1 % (32.0-36.0); MEAN PLATELET VOLUME 8.2 FL (7.0-11.0); PLATELET COUNT 281 TH/MM3 (150-450); RED BLOOD COUNT 2.16 MIL/MM3 (4.50-5.90); RED CELL DISTRIBUTION WIDTH 19.9 % (11.6-17.2); WHITE BLOOD COUNT 12.9 TH/MM3 (4.0-11.0)
[2017-09-03 05:59] LABS: BICARBONATE 22.4 MEQ/L (21.0-32.0); CALCIUM 8.3 MG/DL (8.5-10.1); CREATININE 0.84 MG/DL (0.60-1.30)
[2017-09-03 06:01] LABS: INTERNATIONAL NORMALIZED RATIO 1.1 RATIO; PROTHROMBIN TIME - PATIENT 10.8 SEC (9.8-11.6)
[2017-09-03 06:05] LABS: HEMATOCRIT 19.1 % (39.0-51.0); HEMOGLOBIN 6.5 GM/DL (13.0-17.0)
[2017-09-03] MEDS ORDERED: SODIUM CHLOR 0.9% 250 ML INJ 250 ML IV ONE (06:30)
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
[2017-09-03] MEDS: SODIUM CHLORIDE 0.9% FLUSH 10 ML FLUSH IV FLUSH SCH ×2 (08:43→21:00)
[2017-09-03] MEDS: HYDROXYUREA 500 MG CAP PO SCH ×3 (08:44→18:00)
[2017-09-03] MEDS: cloNIDine HCL 0.3 MG TAB PO SCH ×2 (08:44→21:00)
[2017-09-03] MEDS: PANTOPRAZOLE SOD 40 MG DELAYED RELEASE TAB PO SCH (08:44)
[2017-09-03 08:56] LABS: BASOPHILS 2 % (0-2); CORRECTED NUCLEATED RBC 1 /100 WBC (0-0); LYMPHOCYTES 24 % (9-44); MONOCYTES 11 % (0-8); NEUTROPHIL # MANUAL DIFF 8.1 TH/MM3 (1.8-7.7); NUCLEATED RED BLOOD CELL 1 (0-0); POLYS (SEG NEUTROPHILS) 63 % (16-70)
[2017-09-03 08:57] LABS: OVALOCYTES 1+ (NORMAL)
[2017-09-03 09:00] LABS: TARGET CELLS 1+ (NORMAL)
[2017-09-03] MEDS ORDERED: INFLUENZA VIRUS VACCINE (QUADRIVALENT) 0.5 ML SYR IM ONE (10:00)
[2017-09-03] MEDS ORDERED: PNEUMOCOCCAL POLYVALENT INJ 25 MCG/0.5 ML SYR IM ONE (10:00)
[2017-09-03] MEDS ORDERED: NEOSTIGMINE 5 MG/5 ML SYRINGE IV PUSH ONE (12:00)
[2017-09-03] MEDS ORDERED: GLYCOPYRROLATE 1 MG/5 ML SYRINGE IV PUSH ONE (12:00)
[2017-09-03] MEDS ORDERED: PROPOFOL 200 MG/20 ML AMP IV ONE (12:00)
[2017-09-03] MEDS ORDERED: PHENYLEPH/NS 1000 MCG/10 ML SYR IV ONE (12:00)
[2017-09-03] MEDS ORDERED: DEXAMETHASONE SOD PHOS 4 MG/ML VIAL IV ONE (12:00)
[2017-09-03] MEDS ORDERED: ONDANSETRON HCL 4 MG/2 ML VIAL IV ONE (12:00)
[2017-09-03] MEDS ORDERED: ROCURONIUM INJ 50 MG/5 ML SYRINGE IV PUSH ONE (12:00)
[2017-09-03] MEDS ORDERED: CHLORHEXIDINE GLUCONATE 0.12% 15 ML CUP ONE (14:58)
[2017-09-03] MEDS ORDERED: GELATIN 12 MM/7 MM FOAM ONE (14:58)
[2017-09-03] MEDS ORDERED: LIDOCAINE 2%/EPINEPHrine PF 1:200,000 20ML SDV ONE ×2 (14:58→15:04)
[2017-09-03] MEDS ORDERED: LACTATED RINGER'S 1000 ML IV PRN (15:30)
[2017-09-03] MEDS ORDERED: INSULIN HUMAN REGULAR 1,000 UNITS/10 ML VIAL SQ PRN (15:30)
[2017-09-03] MEDS ORDERED: CHLORHEXIDINE GLUCONATE 2 % 1 PACK (2 CLOTHS) TOPICAL PRN (15:30)
[2017-09-03] MEDS ORDERED: SODIUM CHLORID 0.9% 500 ML IV PRN (15:30)
[2017-09-03] MEDS ORDERED: METOPROLOL TARTRATE 25 MG TAB PO PRN (15:30)
[2017-09-03] MEDS ORDERED: POVIDONE IODINE 5% (ANTISEPSIS KIT) 4 APPLICATIONS EACH NARE PRN (15:30)
[2017-09-03] MEDS ORDERED: fentaNYL CITRATE 250 MCG/5 ML AMP ONE (16:09)
[2017-09-03] MEDS ORDERED: BALANCED SALT SOLN OPHT IRRIG 15 ML BTL ONE (16:21)
[2017-09-03] MEDS ORDERED: MIDAZOLAM HCL 2 MG/2 ML VIAL ONE (16:43)
[2017-09-03] MEDS ORDERED: ceFAZolin INJ 1,000 MG VIAL ONE (16:48)
[2017-09-03] MEDS ORDERED: ACETAMINOPHEN 1000 MG/100 ML 100 ML IV ONE (18:38)
[2017-09-03] MEDS ORDERED: BUPIVACAINE/EPINEPHRINE 0.5% PF 30 ML VIAL ONE (18:40)
[2017-09-03] MEDS ORDERED: BACITRACIN TOP OINT 15 GM TUBE ONE (18:50)
[2017-09-03] MEDS ORDERED: methylPREDNISolone SOD SUCC 125 MG/2 ML VIAL ONE (19:14)
[2017-09-03] MEDS ORDERED: SUGAMMADEX SODIUM 200 MG/2 ML VIAL IV PUSH ONE (19:16)
[2017-09-03] MEDS ORDERED: MEPERIDINE HCL 25 MG/ML VIAL ONE (19:17)
--- NOTE | 2017-09-03 19:18 | HHI.PR ---
Immediate Post Op Note Procedure Date: Sep 03, 2017 Pre Op Diagnosis: right mandible angle region fracture Post Op Diagnosis: dianna Surgeon: Sukhdev Calzada Milk Bottler(s): tristan guzman Procedure: orif right mandible fracture Complications: none Estimated blood loss: 25cc Anesthesia: General, Local (2%lidocaine with 1:100,000 epi 5cc; 0.5%marcaine with 1:200,000 epi 4cc) Drains: None Patient to: PACU Patient Condition: Good Date/Time of Procedure: SEE SURGICAL CARE RECORD Sukhdev Calzada DMD Sep 03, 2017 19:18
[2017-09-03] MEDS ORDERED: *RESP: ALBUTEROL 2.5 MG/3 ML NEB (PRN) PERIprocedural Use ONLY NEB ONE (19:19)
[2017-09-03] MEDS ORDERED: DO NOT ADM ANY ANTICOAGULANT DRUGS PRN (19:45)
[2017-09-03 20:11] LABS: HEMATOCRIT 25.2 % (39.0-51.0); HEMOGLOBIN 8.7 GM/DL (13.0-17.0)
[2017-09-03] MEDS: ceFAZolin 1,000 MG/NS 100 ML IV SCH ×2 (20:54)
[2017-09-03] MEDS: methylPREDNISolone SOD SUCC 125 MG/2 ML VIAL IV SCH (20:55)
[2017-09-03] MEDS: CHLORHEXIDINE 0.12% (ORAL KIT) 15 ML CUP SWISH-SPIT SCH (21:00)
[2017-09-04] VITALS (8 sets, daily range): BP systolic 103–122; BP diastolic 54–64; PULSE 52–70; RESP 15–18; TEMP 96.3–98.7; O2SAT 93–98
[2017-09-04] MEDS: MORPHINE SULFATE 4 MG/ML INJ IV PUSH PRN ×7 (02:03→22:29)
[2017-09-04] MEDS: methylPREDNISolone SOD SUCC 125 MG/2 ML VIAL IV SCH (02:03)
[2017-09-04] MEDS: SODIUM CHLOR 0.9% 1000 ML INJ 1,000 ML IV SCH ×3 (03:40→23:40)
[2017-09-04] MEDS: ONDANSETRON HCL 4 MG/2 ML VIAL IVP PRN ×4 (04:33→22:29)
[2017-09-04] MEDS: ceFAZolin 1,000 MG/NS 100 ML IV SCH ×2 (04:33)
[2017-09-04] MEDS ORDERED: SODIUM CHLOR 0.9% 250 ML INJ 250 ML IV ONE (05:00)
[2017-09-04 05:48] LABS: AUTOMATED NEUTROPHIL # 15.2 TH/MM3 (1.8-7.7); BASOPHIL # 0.2 TH/MM3 (0-0.2); BASOPHIL % 1.1 % (0.0-2.0); HEMATOCRIT 23.4 % (39.0-51.0); HEMOGLOBIN 8.1 GM/DL (13.0-17.0); LYMPHOCYTE # 0.7 TH/MM3 (1.0-4.8); MEAN CELL VOLUME 85.9 FL (80.0-100.0); MEAN CORPUSCULAR HEMOGLOBIN 29.9 PG (27.0-34.0); MEAN CORPUSCULAR HGB CONC 34.8 % (32.0-36.0); MEAN PLATELET VOLUME 7.5 FL (7.0-11.0); MONO % 2.3 % (0.0-8.0); MONOCYTE # 0.4 TH/MM3 (0-0.9); NEUT % 92.6 % (16.0-70.0); PLATELET COUNT 328 TH/MM3 (150-450); RED BLOOD COUNT 2.73 MIL/MM3 (4.50-5.90); RED CELL DISTRIBUTION WIDTH 19.4 % (11.6-17.2); WHITE BLOOD COUNT 16.4 TH/MM3 (4.0-11.0)
[2017-09-04 06:21] LABS: BICARBONATE 22.4 MEQ/L (21.0-32.0); BLOOD UREA NITROGEN 6 MG/DL (7-18); CALCIUM 8.3 MG/DL (8.5-10.1); CHLORIDE 110 MEQ/L (98-107); CREATININE 0.89 MG/DL (0.60-1.30); GLOMERULAR FILTRATION RATE 112 ML/MIN (>89); GLUCOSE,RANDOM 156 MG/DL (74-106); MAGNESIUM 2.2 MG/DL (1.5-2.5); SODIUM (NA) 142 MEQ/L (136-145)
[2017-09-04 06:24] LABS: TROPONIN I LESS THAN 0.02 NG/ML (0.02-0.05)
[2017-09-04 06:37] LABS: BANDS 3 % (0-6); LYMPHOCYTES 7 % (9-44); MONOCYTES 5 % (0-8); MYELOCYTES 1 % (0-0); NEUTROPHIL # MANUAL DIFF 14.4 TH/MM3 (1.8-7.7); POLYS (SEG NEUTROPHILS) 84 % (16-70)
[2017-09-04 06:38] LABS: HOWELL-JOLLY BODIES PRESENT (NONE SEEN); SICKLE CELLS 1+ (NORMAL); TARGET CELLS 1+ (NORMAL)
[2017-09-04 06:39] LABS: ACANTHOCYTES OCC (NORMAL); KERATOCYTES OCC (NORMAL)
[2017-09-04] MEDS ORDERED: methylPREDNISolone ACETATE 80 MG/ML VIAL IM ONE (07:00)
[2017-09-04] MEDS: PANTOPRAZOLE SOD 40 MG DELAYED RELEASE TAB PO SCH (08:21)
[2017-09-04] MEDS: SODIUM CHLORIDE 0.9% FLUSH 10 ML FLUSH IV FLUSH SCH ×2 (08:21→21:00)
[2017-09-04] MEDS: cloNIDine HCL 0.3 MG TAB PO SCH ×2 (08:21→21:00)
[2017-09-04] MEDS: HYDROXYUREA 500 MG CAP PO SCH ×3 (08:21→17:17)
[2017-09-04] MEDS: CHLORHEXIDINE 0.12% (ORAL KIT) 15 ML CUP SWISH-SPIT SCH ×2 (08:22→21:00)
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
--- NOTE | 2017-09-04 14:42 | EKG ---
Date Performed: 09/04/2017 Time Performed: 05:15:37 PTAGE: 47 years EKG: SINUS BRADYCARDIA VOLTAGE CRITERIA FOR LVH ABNORMAL ECG PREVIOUS TRACING : 07/03/2017 00.44 Since the prior tracing, there has been no significant cochran DOCTOR: Gabby Oliver Interpretating Date/Time 09/04/2017 14:37:45
[2017-09-05 00:20] VITALS: BP 109/62; PULSE 56; RESP 18; TEMP 96.7; O2SAT 93
[2017-09-05] MEDS: SODIUM CHLOR 0.9% 1000 ML INJ 1,000 ML IV SCH (02:09)
[2017-09-05] MEDS: MORPHINE SULFATE 4 MG/ML INJ IV PUSH PRN ×3 (02:09→08:23)
[2017-09-05] MEDS: ONDANSETRON HCL 4 MG/2 ML VIAL IVP PRN (05:27)
[2017-09-05 08:00] VITALS: BP 109/64; PULSE 53; RESP 18; TEMP 97.3; O2SAT 97
[2017-09-05] MEDS ORDERED: CEPHALEXIN MONOHYDRATE 500 MG CAP PO SCH (08:00)
[2017-09-05 08:28] VITALS: RESP 18
[2017-09-05] MEDS: CHLORHEXIDINE 0.12% (ORAL KIT) 15 ML CUP SWISH-SPIT SCH (09:00)
[2017-09-05] MEDS: cloNIDine HCL 0.3 MG TAB PO SCH (09:00)
[2017-09-05] MEDS: SODIUM CHLORIDE 0.9% FLUSH 10 ML FLUSH IV FLUSH SCH (09:00)
[2017-09-05] MEDS: HYDROXYUREA 500 MG CAP PO SCH (09:00)
[2017-09-05] MEDS: PANTOPRAZOLE SOD 40 MG DELAYED RELEASE TAB PO SCH (09:00)
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
[2017-09-05] MEDS ORDERED: CEPH500C PO (10:11)
[2017-09-05] MEDS ORDERED: NORC5TAB PO (10:11)
[2017-09-05] MEDS ORDERED: PERC5TAB12 PO (10:48)
[2017-09-05] MEDS ORDERED: PROM25TA10 PO (10:48)
[2017-09-05] MEDS ORDERED: HYDR500C PO (10:48)
[2017-09-05] MEDS ORDERED: ZOFR4TAB3 SL (10:48)
[2017-09-05] MEDS ORDERED: FOLI1TAB6 PO (10:48)
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
== END 2017-09-05 12:02 | disposition home or self-care (01) | DRG 131 ==
LOC: NEPC 18:11 → EEVIPCON 20:30 → NEDA 20:30 → NEPGCP 21:41 → OBSVTOIN 09-03 14:30 → N03B 09-03 17:01 → N06A 09-03 20:10
PROVIDERS: ADMIT Hospitalist; ATTEND Hospitalist
PROC: 30233N1 Transfusion of Nonautologous Red Blood Cells into Peripheral Vein, Percutaneous Approach (ICD-10-PCS; 2017-09-03)
PROC: 0NST04Z Reposition Right Mandible with Internal Fixation Device, Open Approach (ICD-10-PCS; principal; 2017-09-03 17:04)
DX: S02.601A Fracture of unspecified part of body of right mandible, initial encounter for closed fracture (principal); I69.354 Hemiplegia and hemiparesis following cerebral infarction affecting left non-dominant side; I10 Essential (primary) hypertension; S02.602A Fracture of unspecified part of body of left mandible, initial encounter for closed fracture; D57.1 Sickle-cell disease without crisis; D64.9 Anemia, unspecified; G89.29 Other chronic pain; M19.90 Unspecified osteoarthritis, unspecified site; J45.909 Unspecified asthma, uncomplicated; K21.9 Gastro-esophageal reflux disease without esophagitis; Y09 Assault by unspecified means; F17.210 Nicotine dependence, cigarettes, uncomplicated; R07.9 Chest pain, unspecified; Z87.442 Personal history of urinary calculi; Z23 Encounter for immunization; F32.9 Major depressive disorder, single episode, unspecified
CPT/HCPCS: 36430; 70450; 70486; 76377; 80048; 82550; 82552; 83735; 84484; 85007; 85014; 85018; 85027; 85610; 85730; 86850; 86900; 86901; 86920; 90686; 93005; 94640; C1713; J0131; J0690; J1040; J1100; J2175; J2250; J2270; J2370; J2405; J2710; J2930; J3010; J7030; J7050; J7613; P9016; Q2038